=== PATIENT | male | born 1960 | race African-American/Black ===

== ENCOUNTER 2017-07-13 17:39 | Inpatient (IN) | payer MEDICARE, OTHER ==
[~2017-07-13] VITALS: Ht 180.3 cm; Wt 60.8 kg
[~2017-07-13 17:39] MED LIST: COZ25 PO; COZAAR50 MG PO; GABAPENTIN400 MG PO; HUMULIN N100 UNIT/1 SC; LANTUS 3ML100 UNITS/ SC; LANTUS100 UNIT/1 SC; LEVAQUIN500 MG PO; LEVP SQ; LOSARTAN POTASS25 MG PO; LOVASTATIN40 MG PO; LYRICA75 MG PO; NICODERM CQ1 EAC1 TOP; NOVOLOG MI100 UNITS/ SC; PANTOPRAZOLE SO40 MG PO; PAROXETINE HCL20 MG PO; PROCARDIA XL30 MG PO; SANTYL15 GM TP; ULTRAM50 MG PO
[2017-07-13] MEDS ORDERED: ONDANSETRON HCL INJ 2 MG/ML VIAL ONE (18:25)
[2017-07-13] MEDS ORDERED: ASPIRIN 81 MG CHEW TAB PO ONE (18:30)
--- NOTE | 2017-07-13 18:54 | Diagnostic Imaging Report ---
Examination: Single AP view of the chest. COMPARISON: None. INDICATION: Low blood sugar DISCUSSION: Lines/tubes: None. Lungs: The lungs are well inflated and clear. There is no evidence of pneumonia or pulmonary edema. Pleura: There is no pleural effusion or pneumothorax. Heart and mediastinum: The heart and the mediastinum are unremarkable. Bones and soft tissues: No acute bony abnormalities. Scattered soft tissue BBs. IMPRESSION: 1. No acute cardiopulmonary abnormalities. Signed by: Dr. Davis Sanders M.D. on 07/13/2017 6:51 PM
[2017-07-13 19:09] LABS: BASOPHILS # (AUTO) 0.1 (0.0-0.1); BASOPHILS % 0.4 % (0.0-1.0); EOSINOPHILS # (AUTO) 0.1 (0.0-0.4); EOSINOPHILS % 0.6 % (0.0-6.0); HEMOGLOBIN 11.8 g/dL (14.0-18.0); LYMPHOCYTES # (AUTO) 1.4 (1.0-3.2); LYMPHOCYTES % 7.6 % (18.0-39.1); MEAN CORPUSCULAR HEMOGLOBIN 29.2 pg (28-32); MEAN CORPUSCULAR HGB CONC 32.8 g/dL (31-35); MEAN CORPUSCULAR VOLUME 89.1 fL (81-99); MONOCYTES # (AUTO) 1.1 (0.2-0.8); MONOCYTES % 6.1 % (4.4-11.3); NEUTROPHILS # (AUTO) 15.2 (2.1-6.9); NEUTROPHILS % 84.8 % (38.7-80.0); PLATELET COUNT 301 x10e3/uL (140-360); RED BLOOD COUNT 4.04 x10e6/uL (4.3-5.7); RED CELL DISTRIBUTION WIDTH 14.1 % (11.7-14.4)
[2017-07-13] MEDS ORDERED: DEXTROSE 50% SYRINGE 50 ML IV ONE (19:09)
[2017-07-13] MEDS ORDERED: DEXTROSE 50% SYRINGE 50 ML IV STA (19:10)
[2017-07-13] MEDS ORDERED: DEXTROSE 5%/0.45% SOD CHL 1,000 ML IV ONE (19:15)
[2017-07-13 19:22] LABS: INR 0.91; PROTHROMBIN TIME 12.7 seconds (11.9-14.5)
[2017-07-13 19:23] LABS: PARTIAL THROMBOPLASTIN TIME 30.7 seconds (23.8-35.5)
[2017-07-13 19:26] LABS: BILIRUBIN,URINE NEGATIVE (NEGATIVE); CLARITY,URINE CLEAR (CLEAR); COLOR,URINE YELLOW (YELLOW); KETONES,URINE NEGATIVE (NEGATIVE); LEUKOCYTE ESTERASE ,URINE NEGATIVE (NEGATIVE); NITRITE,URINE NEGATIVE (NEGATIVE); PROTEIN,URINE DIPSTICK NEGATIVE (NEGATIVE); URINE UROBILINOGEN 0.2 mg/dL (0.2 - 1)
[2017-07-13 19:30] LABS: ALANINE AMINOTRANSFERASE 12 IU/L (0-55); ALBUMIN 3.5 g/dL (3.5-5.0); ALBUMIN/GLOBULIN RATIO 0.8 (0.8-2.0); ALKALINE PHOSPHATASE 127 IU/L (40-150); ANION GAP 12.6 mmol/L (8-16); BLOOD UREA NITROGEN 14 mg/dL (7-26); BUN/CREATININE RATIO 18 (6-25); CALCIUM 9.4 mg/dL (8.4-10.2); CARBON DIOXIDE 26 mmol/L (22-29); CHLORIDE 105 mmol/L (98-107); CREATINE KINASE 60 IU/L (30-200); EST GLOMERULAR FILTRATION RATE > 60 ML/MIN (60-); GLUCOSE 102 mg/dL (74-118); POTASSIUM 3.6 mmol/L (3.5-5.1); SODIUM 140 mmol/L (136-145)
[2017-07-13 19:37] LABS: TROPONIN I 0.008 ng/mL (0-0.300)
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
[2017-07-14] MEDS ORDERED: ACETAMINOPHEN 1000 MG/100 ML IV STA (00:17)
[2017-07-14] MEDS: SODIUM CHLORIDE 0.9% 1000ML 1,000 ML IV SCH ×2 (00:22→08:19)
[2017-07-14] MEDS ORDERED: ONDANSETRON HCL INJ 2 MG/ML VIAL IV PRN (00:30)
[2017-07-14] MEDS ORDERED: SODIUM CHLORIDE 0.9% 1000ML 1,000 ML IV ONE (00:30)
[2017-07-14] MEDS ORDERED: TRAMADOL HCL 50 MG TAB PO PRN (00:30)
[2017-07-14] MEDS ORDERED: DEXTROSE 50% SYRINGE 50 ML IV PRN (00:30)
[2017-07-14] MEDS ORDERED: GABAPENTIN 300 MG CAP PO PRN (00:30)
[2017-07-14] MEDS: PIPER-TAZ 3.375 GM 50 ML IV SCH ×4 (00:43→21:28)
[2017-07-14] MEDS: VANCOMYCIN 1GM/NS 250 ML 250 ML IV SCH ×2 (01:00→12:49)
[2017-07-14 01:20] VITALS: BP 130/71
[2017-07-14 02:25] VITALS: BP 130/71
[2017-07-14] MEDS: INSULIN REGULAR, HUMAN 100 UNIT/1 ML 3ML VIAL SQ SCH ×2 (07:30→11:30)
[2017-07-14] MEDS: INSULIN ASPART 70/30 100 UNITS/ML VIAL SC SCH ×2 (07:30→11:30)
[2017-07-14] MEDS ORDERED: ACETAMINOPHEN 325 MG TAB PO PRN (07:45)
[2017-07-14] MEDS: LOSARTAN POTASSIUM 25 MG TAB PO SCH (08:40)
[2017-07-14] MEDS: DOCUSATE SODIUM 100 MG CAP PO SCH ×2 (08:40→16:09)
[2017-07-14] MEDS: NICOTINE 7 MG PATCH TOP SCH (08:41)
[2017-07-14] MEDS: SENNOSIDES 8.6 MG TAB PO SCH (08:41)
--- NOTE | 2017-07-14 08:49 | History and Physical ---
PCP: Dr. Turcios. QUALITY REP: Dr. Jan Mclean. CHIEF COMPLAINT: Low blood sugar and left foot ulcer worsening. HISTORY OF PRESENT ILLNESS: A 46-year-old man with a history of a diabetic foot ulcer on the left foot who has had debridement and management by Dr. Jan Mclean here at [facility] and also at [facility]. Recently discharged from [place] for a debridement. Now patient states that blood sugar was quite low, did not give me a number, and that his leg wound has been worsening. Denies any chest pain or shortness of breath. Patient admits to smoking several cigarettes since being discharged. PAST MEDICAL HISTORY: Diabetes mellitus type 2, peripheral vascular disease, peripheral neuropathy, diabetic neuropathy, cataracts, right diabetic foot ulcer status post TMA, left diabetic foot ulcer status post toe amputations, gluteal abscess. PAST SURGICAL HISTORY: Right TMA secondary to diabetic foot ulcer and left foot toe amputations. ALLERGIES: PER ELECTRONIC MEDICAL RECORD. SOCIAL HISTORY: The patient is . Has several children. He has a significant history of smoking cigarettes for more than 30 years and continues to smoke cigarettes now. MEDICATIONS: Per electronic medical record. REVIEW OF SYSTEMS: Denies any dizziness, chest pain. PHYSICAL EXAMINATION VITAL SIGNS: Reviewed. GENERAL: A tired-appearing man resting in bed. HEENT: Anicteric. Pupils respond to light. No oral lesions. He has a right eye which is opaque. CARDIOVASCULAR: Normal S1 and S2. LUNGS: Moderate breath sounds. ABDOMEN: Soft and nontender. EXTREMITIES: Right TMA site well-healed. He has had left foot ulcer/surgical site with dressing in place. SKIN: Dry. PSYCHIATRIC: Flat affect. Alert and oriented x3. LABS: Reviewed. MEDICATIONS: Reviewed. ASSESSMENT AND PLAN: A 56-year-old man 1. Sepsis. Will continue him on Zosyn and vancomycin. Will get Dr. Mclean back on board to assist in management. 2. Diabetes mellitus type 2. Will get a hemoglobin A1c and lipid panel. Consult Dr. Medina to assist in management. 3. Cigarette abuse. Counseled on cessation. We started nicotine patch. 4. Hypertension. Started on medication. 5. Left diabetic ulcer as described above. Continue antibiotics per Dr. Mclean. 6. Diabetic neuropathy. Continue gabapentin. 7. Prophylaxis. Will use Lovenox and Pepcid. 8. Disposition: Follow up labs. Job#: [id number] POPE
[2017-07-14] MEDS ORDERED: INSULIN DETEMIR 100 UNIT/ML PEN SQ SCH ×2 (09:00→21:00)
[2017-07-14 09:44] VITALS: BP 150/74
[2017-07-14 13:35] VITALS: BP 124/68
--- NOTE | 2017-07-14 15:29 | Consultation ---
DATE OF CONSULTATION: July 14, 2017 ENDOCRINE CONSULTATION This is a patient of Dr. Monroe. This is a 56-year-old black gentleman who is known to me from his previous hospital followups. Patient came to the hospital with history of altered mental status and low blood sugar. Patient has multiple other medical problems including cellulitis of both feet and possibly osteomyelitis of the right foot. At home he takes quite a significant amount of insulin, about 26 of Humalog with each meal, and also takes Lantus about 40 at bedtime. Patient also has severe diabetic neuropathy for which he is on Neurontin 300 mg 3 times a day. He has hypertension. He is on losartan 50 mg once daily and tramadol for pain. Patient is also a chronic smoker. PHYSICAL EXAMINATION GENERAL: On physical examination today, the patient is alert, awake, a little bit apprehensive. HEENT: He is legally blind on the right eye. CHEST: Bilateral vesicular breathing. He has mild bronchospasm. CARDIOVASCULAR: Both 1st and 2nd heart sounds. There is no 3rd or 4th heart sound. Ejection sound grade 2/6. EXTREMITIES: Patient has bilateral foot ulcers. LAB EVALUATION: Shows his blood sugar at the time of admission was in the ranges of 120s. His sodium was 140. Hemoglobin is 11.8 and his white count was elevated at 17.9. CLINICAL IMPRESSION 1. Diabetes mellitus type 2, uncontrolled, with complications. 2. Hypoglycemia. 3. Sepsis. 4. Cellulitis of the feet. The plan at this time is to adjust the insulin dose, monitor his blood sugars closely, and will a hemoglobin A1c and thyroid function test. Thanks for referring this patient. I will be following this patient with you. Job#: [id number] EV
[2017-07-14 15:39] LABS: FREE T4 (FREE THYROXINE) 1.05 ng/dL (0.8-1.8); THYROID STIMULATING HORMONE 0.296 uIU/mL (0.350-4.940)
[2017-07-14 16:09] VITALS: BP 126/57
[2017-07-14] MEDS: FAMOTIDINE 20 MG TAB PO SCH (16:09)
[2017-07-14] MEDS: ENOXAPARIN SOD INJ 40 MG/0.4 ML SYR SC SCH (16:09)
[2017-07-14] MEDS: INSULIN LISPRO 100 UNIT/1 ML 3ML VIAL SQ SCH ×3 (16:30→21:00)
[2017-07-14 20:00] VITALS: BP_SYST 116; BP_SYST 138; BP_DIAS 70; BP_DIAS 81
[2017-07-15] VITALS: BP 118/72
[2017-07-15] MEDS: SODIUM CHLORIDE 0.9% 1000ML 1,000 ML IV SCH ×4 (00:13→17:19)
[2017-07-15] MEDS: VANCOMYCIN 1GM/NS 250 ML 250 ML IV SCH ×2 (00:32→13:08)
[2017-07-15 04:00] VITALS: BP 132/81
[2017-07-15] MEDS: PIPER-TAZ 3.375 GM 50 ML IV SCH ×3 (05:28→22:00)
[2017-07-15 07:23] LABS: BASOPHILS # (AUTO) 0.1 (0.0-0.1); BASOPHILS % 0.6 % (0.0-1.0); EOSINOPHILS # (AUTO) 0.1 (0.0-0.4); EOSINOPHILS % 1.4 % (0.0-6.0); HEMATOCRIT 31.1 % (38.2-49.6); HEMOGLOBIN 10.4 g/dL (14.0-18.0); LYMPHOCYTES # (AUTO) 0.9 (1.0-3.2); LYMPHOCYTES % 9.2 % (18.0-39.1); MEAN CORPUSCULAR HEMOGLOBIN 29.2 pg (28-32); MEAN CORPUSCULAR HGB CONC 33.4 g/dL (31-35); MEAN CORPUSCULAR VOLUME 87.4 fL (81-99); MONOCYTES # (AUTO) 0.7 (0.2-0.8); MONOCYTES % 6.7 % (4.4-11.3); NEUTROPHILS # (AUTO) 8.1 (2.1-6.9); NEUTROPHILS % 81.9 % (38.7-80.0); PLATELET COUNT 296 x10e3/uL (140-360); RED BLOOD COUNT 3.56 x10e6/uL (4.3-5.7); RED CELL DISTRIBUTION WIDTH 13.6 % (11.7-14.4)
[2017-07-15] MEDS: INSULIN LISPRO 100 UNIT/1 ML 3ML VIAL SQ SCH ×7 (07:30→21:41)
[2017-07-15 07:31] VITALS: BP 138/75
[2017-07-15 07:48] LABS: ALANINE AMINOTRANSFERASE 12 IU/L (0-55); ALBUMIN 2.8 g/dL (3.5-5.0); ALBUMIN/GLOBULIN RATIO 0.7 (0.8-2.0); ALKALINE PHOSPHATASE 99 IU/L (40-150); ANION GAP 10.3 mmol/L (8-16); BLOOD UREA NITROGEN 8 mg/dL (7-26); BUN/CREATININE RATIO 11 (6-25); CALCIUM 8.9 mg/dL (8.4-10.2); CARBON DIOXIDE 24 mmol/L (22-29); CHLORIDE 105 mmol/L (98-107); CHOL/HDL RATIO 3.2 (3.9-4.7); CHOLESTEROL 120 MD/DL (0-199); CREATININE, SERUM 0.75 mg/dL (0.72-1.25); EST GLOMERULAR FILTRATION RATE > 60 ML/MIN (60-); GLUCOSE 63 mg/dL (74-118); HDL CHOLESTEROL 37 MG/DL (40-60); LDL CHOLESTEROL 71 MG/DL (60-130); POTASSIUM 3.3 mmol/L (3.5-5.1); SODIUM 136 mmol/L (136-145); TRIGLYCERIDES 60 MG/DL (0-149)
[2017-07-15] MEDS: FAMOTIDINE 20 MG TAB PO SCH ×2 (08:47→17:19)
[2017-07-15] MEDS: SENNOSIDES 8.6 MG TAB PO SCH (08:48)
[2017-07-15] MEDS: LOSARTAN POTASSIUM 25 MG TAB PO SCH (08:48)
[2017-07-15] MEDS: DOCUSATE SODIUM 100 MG CAP PO SCH ×2 (08:48→17:19)
--- NOTE | 2017-07-15 09:22 | Consultation ---
DATE OF CONSULTATION: July 15, 2017 REASON FOR CONSULTATION: Wound to the left foot. HISTORY OF PRESENT ILLNESS: This is a pleasant 56-year-old male who is well known to me, who had surgery several weeks ago, which included amputation of the left great toe, partial resection of 1st met with a flap closure. Patient has been walking without his [employer] walking boot against medical advice. Was admitted secondary to hypoglycemia and is feeling better. Is denying any history of fever, chills, nausea, or vomiting. PAST MEDICAL HISTORY: Remarkable for diabetes and peripheral arterial disease. PODIATRIC PHYSICAL EXAMINATION VITALS: Afebrile, pulse rate 90, respirations 18, blood pressure 138/75, O2 saturation 98%. VASCULAR: Reveals the following: Pedal pulses are diminished to both lower extremities. Skin temperature warm to touch. NEUROLOGIC: Reveals a complete loss of protective sensation when utilizing [place] 5 wire. Muscle mass is symmetric. Overall strength is 3-4/5 to all muscle groups. Has mild surgical dehiscence to the flap site. No foul smell. Minimal to no cellulitis. Labs noted. He has a white blood cell count dropping from 17.9 to 9.9. Hemoglobin 10.4 with a platelet count of 296,000. ASSESSMENT: Mild surgical dehiscence secondary to the patient being very noncompliant. PLAN: Will start light film of Bactroban ointment followed by dilute wet-to-dry Betadine. Patient instructed upon discharge need to get back into his [employer] walking boot. Will follow up in the office. Job#: [id number] ELDA
[2017-07-15] MEDS: NICOTINE 7 MG PATCH TOP SCH (09:59)
--- NOTE | 2017-07-15 10:37 | Progress Note ---
DATE: July 15, 2017 TIME: 6 a.m. OVERNIGHT: No events, no pain. REVIEW OF SYSTEMS: Denies any dizziness, chest pain. PHYSICAL EXAM VITAL SIGNS: Reviewed. T-max is 101.2. GENERAL: A tired-appearing man resting in bed. HEENT: Anicteric. He has a right eye, which is opaque. CARDIOVASCULAR: Normal S1 and S2. No murmurs. ABDOMEN: Soft, nontender. EXTREMITIES: Right TMA well healed. Left foot great toe absent. Surgical site clean and dry at this time. No discharge or pus. No tenderness. SKIN: Dry. PSYCHIATRIC: Normal affect. NEUROGICAL: Alert and oriented times 3. LABS: Reviewed. MEDICATIONS: Reviewed. ASSESSMENT AND PLAN: A 56-year-old man with 1. Sepsis. Continue Zosyn and vancomycin. He has fever last night again. Follow up podiatry. 2. Diabetic foot ulcer, status post right great toe amputation. Surgical site appears clean at this time. Follow up podiatry recommendations. 3. Diabetes mellitus, type 2. 4. Cigarette abuse. Counseled this patient. Continue nicotine patch. 5. Hypertension. Continue medication regimen. 6. Diabetic neuropathy. Continue gabapentin. 7. Prophylaxis. Will use Lovenox and Pepcid. 8. Disposition. Continue current care. Follow up cultures. Job#: [id number]
[2017-07-15 11:10] VITALS: BP 162/88
[2017-07-15] MEDS ORDERED: [UNRECOGNIZED DRUG - OTHER] PO PRN (11:15)
[2017-07-15 15:55] VITALS: BP 129/89
[2017-07-15] MEDS: ENOXAPARIN SOD INJ 40 MG/0.4 ML SYR SC SCH (17:19)
[2017-07-15] MEDS ORDERED: POTASSIUM CHLORIDE 20 MEQ TAB CR PO ONE (18:50)
[2017-07-15 20:00] VITALS: BP 160/90
[2017-07-15] MEDS ORDERED: INSULIN DETEMIR 100 UNIT/ML PEN SQ SCH (21:00)
[2017-07-16] VITALS: BP 145/76
[2017-07-16] MEDS: VANCOMYCIN 1GM/NS 250 ML 250 ML IV SCH (01:00)
[2017-07-16 04:38] VITALS: BP 151/84
[2017-07-16] MEDS ORDERED: COLACE100 M1 PO (06:24)
[2017-07-16] MEDS ORDERED: SENOKOT8.6 MG PO (06:24)
[2017-07-16] MEDS ORDERED: FAMOTIDINE20 MG PO (06:24)
[2017-07-16] MEDS ORDERED: NICODERM CQ1 EACH TOP (06:24)
[2017-07-16] MEDS ORDERED: Insulin Detemir SQ (06:24)
[2017-07-16] MEDS ORDERED: CIPRO500 MG PO (06:24)
[2017-07-16] MEDS ORDERED: MINOCYCLINE HCL50 MG PO (06:24)
[2017-07-16] MEDS ORDERED: Insulin Lispro SQ (06:24)
[2017-07-16] MEDS: PIPER-TAZ 3.375 GM 50 ML IV SCH (06:35)
[2017-07-16] MEDS: SODIUM CHLORIDE 0.9% 1000ML 1,000 ML IV SCH (06:35)
[2017-07-16] MEDS: INSULIN LISPRO 100 UNIT/1 ML 3ML VIAL SQ SCH ×2 (07:30)
[2017-07-16] MEDS: FAMOTIDINE 20 MG TAB PO SCH (07:30)
--- NOTE | 2017-07-16 07:43 | Discharge Summary ---
PRINCIPAL DIAGNOSES: 1. Sepsis secondary to diabetic foot ulcer. 2. Diabetic foot ulcer on the right foot. 3. Diabetes mellitus type 2. 4. Cigarette abuse. 5. Hypertension. 6. Diabetic neuropathy. SECONDARY DIAGNOSIS: Diabetes mellitus type 2. CHIEF COMPLAINT: Low blood sugar and worsening left foot ulcer. HISTORY OF PRESENT ILLNESS: This is a 56-year-old man with low blood sugar and comes in for left foot ulcer worsening. Please refer to the H and P for further details. HOSPITAL COURSE: Patient found to be septic, treated with Zosyn and vancomycin, evaluated by podiatry. Wound looked good and clean. He received antibiotics. Fevers resolved. Leukocytosis resolved. He will be discharged home on minocycline and ciprofloxacin. Patient also had diabetes mellitus type 2, managed with medication and diet. He continues to smoke cigarette, counseled on cessation again, given nicotine patch. Hypertension, treated with medication regimen. Diabetic neuropathy with gabapentin. Patient is doing better, currently appropriate for discharge. Will follow up. He was also evaluated by Dr. Medina for his diabetes. DISCHARGE MEDICATIONS: Per electronic medical record and includes minocycline 100 mg p.o. q.12h. for 14 days and ciprofloxacin 500 mg p.o. q.12h. for 14 days. FOLLOWUP: 1. Follow up with primary care doctor in 1 week. 2. Follow up with Dr. Jan Mclean in 10 days. 3. Follow up with Dr. Medina of endocrinology in 10 days. PHILIP MOULTON MD Job#: [id number]
[2017-07-16 08:26] VITALS: BP 136/79
[2017-07-28] MEDS ORDERED: HUMALOG100 UNIT/1 SQ (14:42)
== END 2017-07-16 10:28 | disposition home or self-care (01) | DRG 872 ==
LOC: ER 17:39 → ERHOLD 07-14 00:24 → MED/SURG3 07-14 01:09
PROVIDERS: ADMIT Internal Medicine; ATTEND Internal Medicine
DX: A41.9 Sepsis, unspecified organism (principal); E11.40 Type 2 diabetes mellitus with diabetic neuropathy, unspecified; E11.621 Type 2 diabetes mellitus with foot ulcer; L97.519 Non-pressure chronic ulcer of other part of right foot with unspecified severity; F17.210 Nicotine dependence, cigarettes, uncomplicated; I10 Essential (primary) hypertension; E11.649 Type 2 diabetes mellitus with hypoglycemia without coma; Z91.19 Patient's noncompliance with other medical treatment and regimen; D64.9 Anemia, unspecified; Z89.431 Acquired absence of right foot; Z79.4 Long term (current) use of insulin; T87.81 Dehiscence of amputation stump; J44.9 Chronic obstructive pulmonary disease, unspecified; L97.529 Non-pressure chronic ulcer of other part of left foot with unspecified severity
CPT/HCPCS: 36415; 70450; 71010; 80053; 80061; 81001; 82550; 82553; 82948; 83036; 83880; 84439; 84443; 84484; 85025; 85610; 85730; 87086; 93005; 97139; 99285; J1650; J1815; J2405; J2543; J3370; J7030; J7799

== ENCOUNTER 2017-09-10 15:10 | Inpatient (IN) | payer MEDICARE, OTHER ==
[~2017-09-10] VITALS: Ht 177.8 cm; Wt 58.5 kg
[~2017-09-10 15:10] MED LIST changes: +CIPRO500 MG PO; +COLACE100 M1 PO; +FAMOTIDINE20 MG PO; +HUMALOG100 UNIT/1 SQ; +Insulin Detemir SQ; +Insulin Lispro SQ; +MINOCYCLINE HCL50 MG PO; +NICODERM CQ1 EACH TOP; +SENOKOT8.6 MG PO
[2017-09-10] MEDS ORDERED: VANCOMYCIN 1GM/NS 250 ML 250 ML IV STA (16:29)
[2017-09-10 17:50] LABS: BASOPHILS # (AUTO) 0.1 (0.0-0.1); BASOPHILS % 0.5 % (0.0-1.0); EOSINOPHILS # (AUTO) 0.1 (0.0-0.4); EOSINOPHILS % 0.5 % (0.0-6.0); HEMATOCRIT 38.3 % (38.2-49.6); HEMOGLOBIN 12.8 g/dL (14.0-18.0); LYMPHOCYTES # (AUTO) 1.8 (1.0-3.2); LYMPHOCYTES % 14.6 % (18.0-39.1); MEAN CORPUSCULAR HEMOGLOBIN 28.8 pg (28-32); MEAN CORPUSCULAR HGB CONC 33.4 g/dL (31-35); MEAN CORPUSCULAR VOLUME 86.1 fL (81-99); MONOCYTES % 7.6 % (4.4-11.3); NEUTROPHILS # (AUTO) 9.6 (2.1-6.9); NEUTROPHILS % 76.5 % (38.7-80.0); PLATELET COUNT 454 x10e3/uL (140-360); RED BLOOD COUNT 4.45 x10e6/uL (4.3-5.7); RED CELL DISTRIBUTION WIDTH 13.2 % (11.7-14.4)
[2017-09-10] MEDS: CEFEPIME HCL 2 GM VIAL IV SCH (17:55)
[2017-09-10 18:11] LABS: ALANINE AMINOTRANSFERASE 9 IU/L (0-55); ALBUMIN 3.4 g/dL (3.5-5.0); ALBUMIN/GLOBULIN RATIO 0.6 (0.8-2.0); ALKALINE PHOSPHATASE 140 IU/L (40-150); ANION GAP 13.4 mmol/L (8-16); BLOOD UREA NITROGEN 17 mg/dL (7-26); BUN/CREATININE RATIO 17 (6-25); CARBON DIOXIDE 30 mmol/L (22-29); CHLORIDE 92 mmol/L (98-107); CREATININE, SERUM 0.99 mg/dL (0.72-1.25); EST GLOMERULAR FILTRATION RATE > 60 ML/MIN (60-); POTASSIUM 4.4 mmol/L (3.5-5.1); SODIUM 131 mmol/L (136-145)
[2017-09-10 18:13] LABS: GLUCOSE 441 mg/dL (74-118)
[2017-09-10] MEDS ORDERED: SODIUM CHLORIDE 0.9% 1000ML 1,000 ML IV STA (18:32)
[2017-09-10] MEDS ORDERED: INSULIN REGULAR, HUMAN 100 UNIT/1 ML 3ML VIAL IV ONE (18:45)
--- NOTE | 2017-09-10 19:02 | Diagnostic Imaging Report ---
PROCEDURE:X-RAY LEFT FOOT, COMPLETE COMPARISON:None. INDICATIONS:LEFT FOOT PAIN, INFECTION FINDINGS: Decreased mineralization. There is likely prior amputation of the first toe at the distal metatarsal level, however, he distal metaphyseal cortical edges show erosion/destruction. There is surrounding soft tissue swelling and soft tissue gas. Other cortical surfaces are intact. Moderate degenerative changes in the second toe proximal interphalangeal joint. Vascular calcifications. CONCLUSION: 1. Findings consistent with osteomyelitis involving the first toe metatarsal bone. 2. Surrounding soft tissue gas suggesting gangrene/likely anaerobic infection Darrick Buchanan M.D. Dictated by: Darrick Buchanan M.D. on 09/10/2017 at 19:11 Electronically approved by: Darrick Buchanan M.D. on 09/10/2017 at 19:11
[2017-09-10] MEDS ORDERED: MORPHINE SULFATE 5 MG/ML VIAL IV ONE (19:45)
[2017-09-10] MEDS ORDERED: ONDANSETRON HCL INJ 2 MG/ML VIAL IV PRN (20:30)
[2017-09-10] MEDS ORDERED: ACETAMINOPHEN 325 MG TAB PO PRN (20:30)
[2017-09-10] MEDS ORDERED: DEXTROSE 50% SYRINGE 50 ML IV PRN (20:30)
[2017-09-10] MEDS ORDERED: GABAPENTIN 300 MG CAP PO PRN (21:00)
[2017-09-10] MEDS ORDERED: CEFEPIME HCL 2 GM VIAL IV SCH (22:00)
[2017-09-10] MEDS: INSULIN REGULAR, HUMAN 100 UNIT/1 ML 3ML VIAL SQ SCH (22:31)
[2017-09-10 22:35] VITALS: BP 138/70
[2017-09-10] MEDS: SODIUM CHLORIDE 0.9% 1000ML 1,000 ML IV SCH (23:30)
[2017-09-10 23:45] VITALS: BP 137/70
[2017-09-11] MEDS: CEFEPIME HCL 2 GM VIAL IV SCH ×3 (01:45→19:00)
[2017-09-11] MEDS: HYDROMORPHONE 2MG/ML INJ IV PRN ×3 (03:53→22:45)
[2017-09-11] MEDS: SODIUM CHLORIDE 0.9% 1000ML 1,000 ML IV SCH ×3 (04:16→21:28)
[2017-09-11] MEDS: VANCOMYCIN 1GM/NS 250 ML 250 ML IV SCH ×2 (05:58→16:39)
[2017-09-11 06:20] LABS: BASOPHILS # (AUTO) 0.1 (0.0-0.1); BASOPHILS % 0.6 % (0.0-1.0); EOSINOPHILS # (AUTO) 0.1 (0.0-0.4); EOSINOPHILS % 1.3 % (0.0-6.0); HEMATOCRIT 32.1 % (38.2-49.6); HEMOGLOBIN 10.7 g/dL (14.0-18.0); LYMPHOCYTES # (AUTO) 1.2 (1.0-3.2); LYMPHOCYTES % 14.1 % (18.0-39.1); MEAN CORPUSCULAR HEMOGLOBIN 28.8 pg (28-32); MEAN CORPUSCULAR HGB CONC 33.3 g/dL (31-35); MEAN CORPUSCULAR VOLUME 86.3 fL (81-99); MONOCYTES # (AUTO) 0.9 (0.2-0.8); MONOCYTES % 10.1 % (4.4-11.3); NEUTROPHILS # (AUTO) 6.4 (2.1-6.9); NEUTROPHILS % 73.7 % (38.7-80.0); PLATELET COUNT 370 x10e3/uL (140-360); RED BLOOD COUNT 3.72 x10e6/uL (4.3-5.7)
[2017-09-11 06:45] LABS: ALANINE AMINOTRANSFERASE 9 IU/L (0-55); ALBUMIN 2.6 g/dL (3.5-5.0); ALBUMIN/GLOBULIN RATIO 0.7 (0.8-2.0); ALKALINE PHOSPHATASE 111 IU/L (40-150); ANION GAP 13.1 mmol/L (8-16); BLOOD UREA NITROGEN 13 mg/dL (7-26); BUN/CREATININE RATIO 17 (6-25); CARBON DIOXIDE 25 mmol/L (22-29); CHLORIDE 100 mmol/L (98-107); CREATININE, SERUM 0.76 mg/dL (0.72-1.25); EST GLOMERULAR FILTRATION RATE > 60 ML/MIN (60-); GLUCOSE 366 mg/dL (74-118); POTASSIUM 4.1 mmol/L (3.5-5.1); SODIUM 134 mmol/L (136-145)
[2017-09-11 07:38] LABS: CHOL/HDL RATIO 3.3 (3.9-4.7)
[2017-09-11 07:59] LABS: THYROID STIMULATING HORMONE 2.421 uIU/mL (0.350-4.940)
[2017-09-11 08:00] VITALS: BP 144/73
[2017-09-11] MEDS: LOSARTAN POTASSIUM 25 MG TAB PO SCH (09:34)
[2017-09-11] MEDS: NICOTINE 14 MG/EA PATCH TOP SCH (09:34)
[2017-09-11] MEDS: INSULIN REGULAR, HUMAN 100 UNIT/1 ML 3ML VIAL SQ SCH ×2 (09:34→12:00)
[2017-09-11] MEDS: DOCUSATE SODIUM 100 MG CAP PO SCH ×2 (09:34→16:48)
[2017-09-11] MEDS: FAMOTIDINE 20 MG TAB PO SCH ×2 (09:35→16:48)
--- NOTE | 2017-09-11 11:42 | History and Physical ---
PRIMARY CARE PHYSICIAN: Dr. Turcios CHIEF COMPLAINT: Left foot ulcer. HISTORY OF PRESENT ILLNESS: This is a 56-year-old man with a history of diabetic foot ulcer, who recently underwent amputation of his great toe on his left foot. Now, developing worsening symptoms with odor and discharge from the previous surgical site. He admits to missing several appointments with Dr. Mclean. He has not been on antibiotics for some time. He denies fever, chills or sweats. Denies any chest pain or shortness of breath. PAST MEDICAL HISTORY: Diabetes mellitus, type 2, diabetic foot ulcer, status post right TMA, diabetic foot ulcer, status post left great toe amputation, gluteal abscess, peripheral vascular disease, peripheral neuropathy, diabetic neuropathy, hypoglycemic episodes. PAST SURGICAL HISTORY: Right TMA and left great toe amputation. ALLERGIES: PER ELECTRONIC MEDICAL RECORD. FAMILY HISTORY/SOCIAL HISTORY: Patient is . He has several children. He had a significant history of smoking more than 30 years, and continues to smoke intermittently. MEDICATIONS: Per electronic medical record. REVIEW OF SYSTEMS: Denies any dizziness or chest pain. PHYSICAL EXAMINATION VITAL SIGNS: Reviewed. GENERAL: A tired-appearing man resting in bed. HEENT: Anicteric. Pupils respond to light. No oral lesions. CARDIOVASCULAR: Normal S1 and S2. LUNGS: Moderate breath sounds. ABDOMEN: Soft, nontender and nondistended. EXTREMITIES: He has a right TMA well-healed. He has left foot with great toe absent. At the great toe previous surgical site, there is a defect in the tissue with odor. Some discharge. The dressing is wet. There is no real erythema. There is no tenderness. There is some hyperpigmentation of the nearby tissue. SKIN: Dry. PSYCHIATRIC: Flat affect. NEUROLOGICAL: Alert and oriented times 3. LABS: Reviewed. MEDICATIONS: Reviewed. ASSESSMENT AND PLAN: A 56-year-old man with: 1. Left diabetic foot ulcer at the previous great toe site: There is odor and discharge. Likely has a bone infection. Will obtain x-rays and MRI, and consult Dr. Mclean. Broad-spectrum antibiotics, wound culture and blood cultures. 2. Diabetes mellitus, type 2: Obtain hemoglobin A1c and lipid panel. He has had labile blood glucose and periods of hypoglycemia. Will consult Dr. Medina for assist in management. 3. Tobacco abuse: Continue counseling. Will start nicotine patch. 4. Findings positive for osteomyelitis on x-ray of the foot at the 1st metatarsal bone: He also has surrounding tissue with gas suggestive of gangrene. Continue antibiotics. Surgical management will be likely necessary. 5. Leukocytosis secondary to infection: His sed rate is 78. 6. Dehydration: Will rehydrate the patient with intravenous fluids. 7. Hypertension: Continue losartan. 8. Constipation: Bowel regimen. 9. Diabetic neuropathy: Continue gabapentin. 10. Prophylaxis: Will continue Pepcid. Will utilize Lovenox. 11. Disposition: Intravenous antibiotics consisting of intravenous cefepime and IV vancomycin. Endocrinology consultation. Job#: [id number] ELDA
[2017-09-11 12:00] VITALS: BP 108/59
[2017-09-11] MEDS ORDERED: FIXODENT DT PRN (14:30)
[2017-09-11] MEDS ORDERED: [UNRECOGNIZED DRUG - OTHER] PO PRN (14:45)
--- NOTE | 2017-09-11 14:58 | Consultation ---
DATE OF CONSULTATION: September 11, 2017 ENDOCRINE CONSULTATION This is a patient of Dr. Monroe. Thank you very much for referring this patient. HISTORY OF PRESENT ILLNESS: This is a 57-year-old black gentleman who is very well known to me from his previous hospital admissions and the followup. Patient came to the hospital with history of left foot ulcer. Patient underwent amputation on the greater toe on the left side recently by Dr. Mclean. Patient is a known case of diabetes mellitus type 2, uncontrolled with complications. He is status post right-sided TMA with peripheral vascular disease. He takes about 18 units of Levemir in the morning and 5 to 7 of Humalog with each meal. Patient is also legally blind on 1 eye, but he smokes. PHYSICAL EXAMINATION: GENERAL: Today the patient is alert, awake, a little bit apprehensive. VITAL SIGNS: His heart rate is around 78. Blood pressure 130/80 mmHg. HEENT: Examination essentially unremarkable. Thyroid is palpable. Clinically he is near euthyroid. CHEST: Bilateral vesicular breathing. Has mild bronchospasm. CARDIAC: Both 1st and 2nd heart sounds. There is no 3rd or 4th heart sound. Ejection sound grade 2/6. EXTREMITIES: The patient has left diabetic foot ulcer, status post toe amputation, CLINICAL IMPRESSION: Siabetes mellitus type 2, uncontrolled with complications, left foot ulcer, chronic smoker, hypertension. The plan at this time is to put him back on the Levemir insulin in the morning and Humalog with each meal. Will also do a hemoglobin A1c and thyroid function test. Thanks for referring this patient. I will be following this patient with you. Job#: [id number] EV RITESH
[2017-09-11] MEDS ORDERED: COLLAGENASE OINTMENT 30 GM TUBE TP SCH (15:00)
[2017-09-11 16:00] VITALS: BP 137/64
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
[2017-09-11] MEDS ORDERED: INSULIN LISPRO 100 UNIT/1 ML 3ML VIAL SQ SCH (16:30)
[2017-09-11] MEDS: INSULIN LISPRO 100 UNIT/1 ML 3ML VIAL SQ SCH ×3 (16:39→21:32)
[2017-09-11 18:45] LABS: INR 0.86; PROTHROMBIN TIME 12.2 seconds (11.9-14.5)
[2017-09-11] MEDS ORDERED: INSULIN DETEMIR 100 UNIT/ML PEN SQ SCH (21:00)
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
[2017-09-12 01:47] VITALS: BP 136/97
[2017-09-12] MEDS: CEFEPIME HCL 2 GM VIAL IV SCH ×3 (03:00→20:35)
[2017-09-12] MEDS: SODIUM CHLORIDE 0.9% 1000ML 1,000 ML IV SCH ×3 (03:00→15:58)
[2017-09-12] MEDS ORDERED: BETAMETHASONE DISODIUM PHOS 6 MG/ML VIAL ONE (06:38)
[2017-09-12] MEDS ORDERED: BUPIVACAINE HCL 0.5% INJ 30 ML VIAL INJ ONE (06:39)
[2017-09-12] MEDS: VANCOMYCIN 1GM/NS 250 ML 250 ML IV SCH ×2 (06:44→18:47)
[2017-09-12] MEDS ORDERED: INSULIN REGULAR, HUMAN 100 UNIT/1 ML 3ML VIAL ONE (07:11)
--- NOTE | 2017-09-12 07:21 | Progress Note ---
DATE: September 12, 2017 TIME: 6:15 a.m. OVERNIGHT: No events. REVIEW OF SYSTEMS: Denies any dizziness or chest pain. PHYSICAL EXAMINATION VITAL SIGNS: Reviewed. GENERAL: A tired-appearing man resting in bed. HEENT: Anicteric. CARDIOVASCULAR: Normal S1 and S2. LUNGS: Moderate breath sounds. ABDOMEN: Soft, nontender and nondistended. EXTREMITIES: He has a right TMA well-healed. His foot with absent great toe at that site. He has a wound and odor with drainage and nontender. SKIN: Dry. PSYCHIATRIC: Flat affect. NEUROLOGICAL: Alert and oriented times 3. LABS: Reviewed. MEDICATIONS: Reviewed. ASSESSMENT: A 56-year-old man with: 1. Left diabetic foot ulcer/gangrene with osteomyelitis of the left foot. 2. Diabetes mellitus, type 2. 3. Tobacco abuse. 4. Dehydration. 5. Hypertension. 6. Constipation. 7. Diabetic neuropathy. PLAN 1. Continue IV antibiotics. Follow up cultures. 2. Plan for surgical management. 3. Leukocytosis is improving. 4. Diabetes management per endocrinology. 5. Hemoglobin A1c 12.1 and poorly controlled. LDL 75 and triglycerides 71. 6. Prophylaxis: Continue with IV cefepime and IV vancomycin. 7. Continue prophylaxis. Job#: [id number] [place]
[2017-09-12] MEDS: FAMOTIDINE 20 MG TAB PO SCH ×2 (07:30→16:55)
[2017-09-12] MEDS: INSULIN LISPRO 100 UNIT/1 ML 3ML VIAL SQ SCH ×7 (07:30→20:36)
[2017-09-12] MEDS ORDERED: BACITRACIN 50,000 UNIT VIAL ONE (07:37)
[2017-09-12] MEDS: LOSARTAN POTASSIUM 25 MG TAB PO SCH (08:59)
[2017-09-12] MEDS: DOCUSATE SODIUM 100 MG CAP PO SCH ×2 (09:00→16:48)
[2017-09-12] MEDS ORDERED: INSULIN DETEMIR 100 UNIT/ML PEN SQ SCH ×2 (09:00)
--- NOTE | 2017-09-12 09:08 | Operative Report ---
DATE OF PROCEDURE: September 12, 2017 PREOPERATIVE DIAGNOSES 1. Abscess, left foot. 2. Osteomyelitis, left foot. 3. Grade 4 ulcer, left foot. 4. Equinus deformity, left foot. POSTOPERATIVE DIAGNOSES 1. Abscess, left foot. 2. Osteomyelitis, left foot. 3. Grade 4 ulcer, left foot. 4. Equinus deformity, left foot. OPERATIVE PROCEDURES 1. Incision and drainage of abscess, left foot. 2. Transmetatarsal amputation, left foot. 3. Achilles tendon lengthening, right foot. 4. Rotational flap closure, right foot. 5. Intraoperative use of fluoroscopy. 6. Trigger point shot of cortisone. 7. Application of posterior splint. ANESTHESIA: General. HEMOSTASIS: Pneumatic thigh tourniquet at 350 mmHg. PROCEDURE IN DETAIL: Patient was taken into the operating room and placed on the operating room table in the supine position. Following induction of general anesthesia by the anesthesiologist, Webril wraps were placed on the patient's left thigh followed by the application of left thigh tourniquet. The left lower extremity was then prepped and draped in the usual aseptic manner. The following procedure was then performed: PROCEDURE #1: Incision and drainage of abscess, left foot. Attention was directed to the dorsomedial aspect of the 1st metatarsal where a curvilinear incision was performed. Severe foul smell and purulent draining was encountered and cultured for aerobic and anaerobic growth. At this point, the abscess was I and D'd down to viable bleeding tissue. Necrotic tissue was removed. Secondary to the extensive necrosis, procedure #2 was performed. PROCEDURE #2: Transmetatarsal amputation, left foot. Attention was redirected back to the dorsal aspect of the left lower extremity where a racquet-shaped incision was performed overlying metatarsals 1-5 dorsally and plantarly. The incisions were then deepened via blunt dissection down to the metatarsal shaft utilizing a periosteal elevator. Soft tissue attachments to the shaft of metatarsals were released and preserving the metatarsal parabola. Utilizing an oscillating saw, the metatarsal parabola was kept, and metatarsals 1-2 were osteotomized. The forefoot was then disarticulated and sent for pathological analysis. All areas were then copiously flushed with sterile antibiotic solution and suctioned. Contracture of the foot was noted. PROCEDURE #3: Achilles tendon lengthening was performed. Attention was then directed back to the posterior aspect of left foot where 3 stab incisions were performed 2 cm proximal to the insertion site and 2 cm apart midline through the Achilles tendon. The incision was performed midline through the tendon and exited medially. The middle stab incision was entered through the midline of the tendon and exited laterally. At this point, the foot was dorsiflexed past 90 degrees. The Achilles tendon was then felt lengthened. PROCEDURE #4: Intraoperative use of fluoroscopy was then used to make sure proper parabola was maintained. PROCEDURE #5: Rotational flap closure was then performed. At this point, the thigh tourniquet was released. All ligators or pumpers were ligated or bovied as necessary. The incision was then carried more proximal medially and dorsally proximally laterally to create a flap to create minimal skin tension upon closure. The flap was then rotated dorsally and medially. Utilizing 2-0 Vicryl, 3-0 Vicryl and 3-0 nylon, the flap was reapproximated with minimal skin tension to allow for better chance of healing. PROCEDURE #6: Trigger point shot of cortisone was then given to the posterior aspect of the left foot, and approximately 15 mL of 0.5% plain Marcaine were used to achieve local anesthesia to the above-mentioned surgical areas. A sterile dressing was applied. PROCEDURE #7: A properly placed posterior splint was then applied keeping the foot at 90 degrees with respect to the leg to try to prevent any type of postop complications. The patient was then transferred from the OR to the recovery room with vital signs stable and neurovascular status intact. No intraoperative complications were encountered. Blood loss from the surgery was less than 75 mL. Patient will remain in the hospital getting IV antibiotics. Patient understands no warranties or guarantees were given. If it does not heal, he will need a more proximal amputation, which may even involve a below the knee amputation. Job#: [id number] RI
[2017-09-12 09:24] VITALS: BP 124/75
[2017-09-12] MEDS: NICOTINE 14 MG/EA PATCH TOP SCH (09:24)
[2017-09-12] MEDS: HYDROMORPHONE 2MG/ML INJ IV PRN ×3 (11:07→22:26)
[2017-09-12] MEDS ORDERED: ONDANSETRON HCL INJ 2 MG/ML VIAL ONE (11:43)
[2017-09-12] MEDS ORDERED: SEVOFLURANE INHAL SOLN 250 ML PEN BTL ONE (11:43)
[2017-09-12] MEDS ORDERED: PROPOFOL IV EMULSION 10 MG/ML 20 ML VIAL ONE (11:43)
[2017-09-12] MEDS ORDERED: KETOROLAC TROMETHAMINE 30 MG/ML VIAL ONE (11:43)
[2017-09-12] MEDS ORDERED: LIDOCAINE HCL 2% LOCAL INJ 5 ML SDV VIAL INJ ONE (11:43)
[2017-09-12] MEDS ORDERED: DEXAMETHASONE SOD PHOS INJ 4 MG/ML VIAL ONE (11:43)
[2017-09-12 12:03] VITALS: BP 123/59
[2017-09-12 12:14] VITALS: BP 123/59
[2017-09-12 15:58] VITALS: BP 143/75
[2017-09-12] MEDS ORDERED: FENTANYL CITRATE/PF 100MCG/2 ML INJ ONE (18:41)
[2017-09-12] MEDS ORDERED: MIDAZOLAM HCL 2 MG/2 ML VIAL ONE (18:41)
[2017-09-12 20:00] VITALS: BP 162/86
[2017-09-13] VITALS (7 sets, daily range): BP systolic 125–165; BP diastolic 66–91
[2017-09-13] MEDS: SODIUM CHLORIDE 0.9% 1000ML 1,000 ML IV SCH ×3 (01:51→20:16)
[2017-09-13] MEDS: HYDROMORPHONE 2MG/ML INJ IV PRN ×4 (01:51→20:04)
[2017-09-13] MEDS: CEFEPIME HCL 2 GM VIAL IV SCH ×3 (03:17→22:10)
[2017-09-13] MEDS: VANCOMYCIN 1GM/NS 250 ML 250 ML IV SCH ×2 (05:49→19:04)
[2017-09-13] MEDS: INSULIN LISPRO 100 UNIT/1 ML 3ML VIAL SQ SCH ×7 (07:26→21:00)
[2017-09-13] MEDS: FAMOTIDINE 20 MG TAB PO SCH ×2 (08:37→16:42)
[2017-09-13] MEDS: DOCUSATE SODIUM 100 MG CAP PO SCH ×2 (08:37→16:42)
[2017-09-13] MEDS: NICOTINE 14 MG/EA PATCH TOP SCH (08:38)
[2017-09-13] MEDS: LOSARTAN POTASSIUM 25 MG TAB PO SCH (08:38)
[2017-09-13] MEDS ORDERED: INSULIN DETEMIR 100 UNIT/ML PEN SQ SCH (09:00)
--- NOTE | 2017-09-13 12:10 | Progress Note ---
DATE: September 13, 2017 TIME: 11 a.m. OVERNIGHT: Underwent surgical management. His pain is about 3/10. REVIEW OF SYSTEMS: Denies any dizziness or chest pain. PHYSICAL EXAMINATION VITAL SIGNS: Reviewed. GENERAL: A tired-appearing man resting in bed. HEENT: Anicteric. CARDIOVASCULAR: Normal S1 and S2. LUNGS: Moderate breath sounds. ABDOMEN: Soft, nontender and nondistended. EXTREMITIES: No edema. His right TMA is clean and dry. His left TMA has dressing in place clean and dry. LABS: Reviewed. MEDICATIONS: Reviewed. ASSESSMENT: A 56-year-old man with: 1. Left diabetic foot ulcer/gangrene with osteomyelitis of the left foot. 2. Diabetes mellitus, type 2. 3. Tobacco abuse. 4. Dehydration. 5. Hypertension. 6. Constipation. 7. Diabetic neuropathy. 8. Enterococcus infection of the wound. PLAN 1. Continue antibiotics. 2. Enterococcus positive in the wound. Will continue and follow up sensitivity. 3. Continue diabetes management. 4. Obtain labs this morning. 5. Discharge planning to skilled facility. His vancomycin trough is 10.9 and therapeutic. Job#: [id number] MD
[2017-09-13 13:22] LABS: BASOPHILS # (AUTO) 0.1 (0.0-0.1); BASOPHILS % 0.8 % (0.0-1.0); EOSINOPHILS # (AUTO) 0.1 (0.0-0.4); EOSINOPHILS % 1.2 % (0.0-6.0); HEMATOCRIT 35.1 % (38.2-49.6); HEMOGLOBIN 11.4 g/dL (14.0-18.0); LYMPHOCYTES # (AUTO) 1.8 (1.0-3.2); LYMPHOCYTES % 15.2 % (18.0-39.1); MEAN CORPUSCULAR HEMOGLOBIN 28.6 pg (28-32); MEAN CORPUSCULAR HGB CONC 32.5 g/dL (31-35); MEAN CORPUSCULAR VOLUME 88.2 fL (81-99); MONOCYTES # (AUTO) 0.9 (0.2-0.8); MONOCYTES % 7.5 % (4.4-11.3); NEUTROPHILS # (AUTO) 8.7 (2.1-6.9); PLATELET COUNT 398 x10e3/uL (140-360); RED BLOOD COUNT 3.98 x10e6/uL (4.3-5.7); RED CELL DISTRIBUTION WIDTH 12.8 % (11.7-14.4)
[2017-09-13 13:44] LABS: BLOOD UREA NITROGEN 11 mg/dL (7-26); BUN/CREATININE RATIO 14 (6-25); CARBON DIOXIDE 28 mmol/L (22-29); CHLORIDE 101 mmol/L (98-107); CREATININE, SERUM 0.77 mg/dL (0.72-1.25); EST GLOMERULAR FILTRATION RATE > 60 ML/MIN (60-); GLUCOSE 225 mg/dL (74-118); SODIUM 137 mmol/L (136-145)
[2017-09-14] VITALS (7 sets, daily range): BP systolic 105–162; BP diastolic 55–93
--- NOTE | 2017-09-14 01:08 | Progress Note ---
DATE: September 13, 2017 SUBJECTIVE: Patient was seen at the bedside. Denying any history of fever, chills, nausea, or vomiting. OBJECTIVE VITALS: Afebrile. Vital signs stable. EXTREMITIES: Patients has been walking on the left foot against medical advice. Was instructed if he creates another surgical dehiscence may end up losing his leg. LABS: Noted. Has a white blood cell count of 11.55, hemoglobin 11.4, hematocrit 35.1 with a platelet count of 398,000. Has some bloody strike-through noted to the dressing of the left foot. ASSESSMENT 1. Status post left foot transmetatarsal amputation with Achilles tendon lengthening. 2. Incision and drainage of left foot with flap closure. PLAN: Will continue IV antibiotics. Dressing will be left for the next couple days intact. Patient instructed on strict nonweightbearing. Bedside commode was ordered. Will continue IV cefepime and vancomycin. Job#: [id number] ID
[2017-09-14] MEDS: SODIUM CHLORIDE 0.9% 1000ML 1,000 ML IV SCH ×3 (04:16→20:16)
[2017-09-14] MEDS: VANCOMYCIN 1GM/NS 250 ML 250 ML IV SCH ×2 (05:26→17:41)
[2017-09-14] MEDS: CEFEPIME HCL 2 GM VIAL IV SCH ×2 (05:47→10:11)
[2017-09-14] MEDS: FAMOTIDINE 20 MG TAB PO SCH ×2 (08:41→17:36)
[2017-09-14] MEDS: INSULIN LISPRO 100 UNIT/1 ML 3ML VIAL SQ SCH ×7 (08:42→20:29)
[2017-09-14] MEDS: DOCUSATE SODIUM 100 MG CAP PO SCH ×2 (08:42→17:36)
[2017-09-14] MEDS: LOSARTAN POTASSIUM 25 MG TAB PO SCH (08:42)
[2017-09-14] MEDS: NICOTINE 14 MG/EA PATCH TOP SCH (08:43)
[2017-09-14] MEDS ORDERED: INSULIN DETEMIR 100 UNIT/ML PEN SQ SCH (09:00)
[2017-09-14] MEDS ORDERED: MEROPENEM 500MG 500 MG in SODIUM CHLORIDE 0.9% 50ML 50 ML IV SCH (11:00)
--- NOTE | 2017-09-14 11:46 | Progress Note ---
DATE: September 14, 2017 TIME: 10:15 a.m. OVERNIGHT: Pain about 4/10. REVIEW OF SYSTEMS: Denies any dizziness. PHYSICAL EXAMINATION VITAL SIGNS: Reviewed. GENERAL: A tired-appearing man resting in bed. HEENT: Anicteric. CARDIOVASCULAR: Normal S1 and S2. LUNGS: Moderate breath sounds. ABDOMEN: Soft, nontender and nondistended. EXTREMITIES: He has a right TMA clean and dry. He has left TMA with dressing in place. LABS: Reviewed. MEDICATIONS: Reviewed. ASSESSMENT: This is a 56-year-old man with: 1. Left diabetic foot ulcer/gangrene with osteomyelitis with extended spectrum beta-lactamase klebsiella and enterococcus species of the left foot. 2. Diabetes mellitus, type 2. 3. Tobacco abuse. 4. Dehydration. 5. Hypertension. 6. Constipation. 7. Diabetic neuropathy. PLAN 1. Continue antibiotics. He is on meropenem. 2. Continue vancomycin for now. 3. Place PICC line. 4. Leukocytosis, resolving. 5. Glucose management per endocrinology. 6. Vancomycin trough therapeutic at 10.6. 7. Actually, will discontinue cefepime and use meropenem. Infectious disease consultation. 8. Continue nicotine patch. 9. Continue Pepcid prophylactically and add Lovenox to regimen. 10. Discharge planning. Job#: [id number] ELDA
[2017-09-14] MEDS: HYDROMORPHONE 2MG/ML INJ IV PRN (11:50)
[2017-09-14] MEDS: METOPROLOL TARTRATE 25 MG TAB PO SCH ×2 (12:01→20:42)
--- NOTE | 2017-09-14 13:08 | Diagnostic Imaging Report ---
Examination: Single AP view of the chest. COMPARISON: None. INDICATION: Line placement DISCUSSION: Lines/tubes: Right PICC line placement with tip overlying the superior vena cava. Lungs: Scattered calcified granuloma. Scattered metallic BBs. Pleura: There is no pleural effusion or pneumothorax. Heart and mediastinum: The heart and the mediastinum are unremarkable. Bones and soft tissues: No acute bony abnormalities. IMPRESSION: 1. Right PICC line with tip overlying the superior vena cava. Signed by: Dr. Davis Sanders M.D. on 09/14/2017 1:04 PM
--- NOTE | 2017-09-14 14:30 | Progress Note ---
DATE: September 14, 2017 SUBJECTIVE: Patient was seen at bedside. Doing well. Denying any history of fever, chills, nausea, or vomiting. OBJECTIVE VITALS: Afebrile, pulse rate 98, respirations 18, blood pressure 157/81, and O2 saturation 98%. EXTREMITIES: Dressing is showing some bloody strike-through. Patient informed once again he needs to stop walking on his foot. Skin temperature warm to touch. ASSESSMENT: Status post left foot surgery, multiple procedures. PLAN: Continue nonweightbearing. Continue IV antibiotics. Dressing will be changed sometime next week. Will continue IV antibiotics. Job#: [id number] RI
[2017-09-14] MEDS ORDERED: ENOXAPARIN SOD INJ 40 MG/0.4 ML SYR SC SCH (17:00)
[2017-09-14] MEDS ORDERED: MEROPENEM 500 MG VIAL IV SCH ×2 (18:00→20:00)
[2017-09-14] MEDS: MEROPENEM 500 MG VIAL IV SCH ×2 (20:16→23:56)
[2017-09-15 01:40] VITALS: BP 164/89
[2017-09-15] MEDS: SODIUM CHLORIDE 0.9% 1000ML 1,000 ML IV SCH (04:16)
[2017-09-15 05:07] VITALS: BP 151/86
[2017-09-15] MEDS: MEROPENEM 500 MG VIAL IV SCH ×2 (05:23→12:00)
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
[2017-09-15] MEDS: HYDROMORPHONE 2MG/ML INJ IV PRN ×2 (06:07→10:04)
--- NOTE | 2017-09-15 06:57 | Progress Note ---
DATE: September 15, 2017 TIME: 5:50 a.m. OVERNIGHT: Feeling better. Pain is controlled. REVIEW OF SYSTEMS: Denies any dizziness. PHYSICAL EXAMINATION VITAL SIGNS: Reviewed. GENERAL: A tired-appearing man resting in bed. HEENT: Anicteric. CARDIOVASCULAR: Normal S1 and S2. LUNGS: Moderate breath sounds. ABDOMEN: Soft, nontender and nondistended. EXTREMITIES: Right TMA well-healed. Left TMA with dressing in place clean and dry. SKIN: Dry. PSYCHIATRIC: Normal affect. LABS: Reviewed. MEDICATIONS: Reviewed. ASSESSMENT: A 56-year-old man with: 1. Left diabetic foot ulcer/gangrene with cellulitis with extended spectrum beta-lactamase, klebsiella and enterococcus species. 2. Diabetes mellitus, type 2. 3. Tobacco abuse. 4. Dehydration. 5. Hypertension. 6. Constipation. 7. Diabetic neuropathy. PLAN 1. Continue IV meropenem. Continue IV vancomycin. Infectious disease on board assisting in management. 2. Continue glucose management per endocrinology. 3. Obtain labs this morning. 4. Discharge planning to skilled facility pending this morning. 5. Continue cigarette cessation. Continue nicotine patch. 6. Awaiting insurance approval for skilled facility. Job#: [id number] OH
[2017-09-15 08:00] VITALS: BP 119/74
[2017-09-15] MEDS: FAMOTIDINE 20 MG TAB PO SCH (08:31)
[2017-09-15] MEDS: DOCUSATE SODIUM 100 MG CAP PO SCH (08:32)
[2017-09-15] MEDS: INSULIN LISPRO 100 UNIT/1 ML 3ML VIAL SQ SCH ×4 (08:32→11:30)
[2017-09-15] MEDS: LOSARTAN POTASSIUM 25 MG TAB PO SCH (08:33)
[2017-09-15] MEDS: METOPROLOL TARTRATE 25 MG TAB PO SCH (08:33)
[2017-09-15] MEDS: NICOTINE 14 MG/EA PATCH TOP SCH (08:36)
[2017-09-15] MEDS: VANCOMYCIN 1GM/NS 250 ML 250 ML IV SCH (08:37)
[2017-09-15 08:39] VITALS: BP 119/74
[2017-09-15] MEDS ORDERED: INSULIN DETEMIR 100 UNIT/ML PEN SQ SCH (09:00)
[2017-09-15 12:00] VITALS: BP 110/69
--- NOTE | 2017-09-15 13:54 | Progress Note ---
DATE: September 15, 2017 SUBJECTIVE: Patient was seen at bedside. Doing well. Denies any history of fever, chills, nausea, or vomiting. OBJECTIVE VITAL SIGNS: Afebrile, pulse rate 95, respirations 20, blood pressure 119/74, and O2 saturation 99%. EXTREMITIES: Incision site looks pristine. No signs of any type of surgical dehiscence. Some drainage noted. Negative foul smell. Decreased cellulitis with some edema present to the forefoot aspect, left foot. Flap is viable. ASSESSMENT: Status post left foot surgery, multiple procedures. PLAN: Dressing was changed. Patient put back in a posterior splint. Patient will need IV antibiotics for the next 2-3 weeks. [facility] Patient is to follow up in the office in 4 weeks. Instructed on strict nonweightbearing to prevent any type of surgical dehiscence. Patient understands if he walks and it becomes a surgical dehiscence, may need a more proximal amputation, which may include a below the knee amputation. Job#: [id number] MS
[2017-09-15] MEDS ORDERED: INSULIN LISPRO 100 UNIT/1 ML 3ML VIAL SQ SCH (16:30)
== END 2017-09-15 15:38 | DRG 240 ==
LOC: ER 15:10 → MED/SURG2 22:18
PROVIDERS: ADMIT Internal Medicine; ATTEND Internal Medicine
PROC: 0JBR0ZZ Excision of Left Foot Subcutaneous Tissue and Fascia, Open Approach (ICD-10-PCS; 2017-09-12)
PROC: 0HXNXZZ Transfer Left Foot Skin, External Approach (ICD-10-PCS; 2017-09-12)
PROC: 0Y6N0ZB Detachment at Left Foot, Partial 2nd Ray, Open Approach (ICD-10-PCS; 2017-09-12)
PROC: 0Y6N0ZC Detachment at Left Foot, Partial 3rd Ray, Open Approach (ICD-10-PCS; 2017-09-12)
PROC: 0Y6N0ZD Detachment at Left Foot, Partial 4th Ray, Open Approach (ICD-10-PCS; 2017-09-12)
PROC: 0Y6N0ZF Detachment at Left Foot, Partial 5th Ray, Open Approach (ICD-10-PCS; 2017-09-12)
PROC: 0L8T0ZZ Division of Left Ankle Tendon, Open Approach (ICD-10-PCS; 2017-09-12)
PROC: 02HV33Z Insertion of Infusion Device into Superior Vena Cava, Percutaneous Approach (ICD-10-PCS; 2017-09-12)
PROC: 0Y6N0Z9 Detachment at Left Foot, Partial 1st Ray, Open Approach (ICD-10-PCS; principal; 2017-09-12 07:00)
DX: E11.52 Type 2 diabetes mellitus with diabetic peripheral angiopathy with gangrene (principal); E11.621 Type 2 diabetes mellitus with foot ulcer; M86.9 Osteomyelitis, unspecified; F17.213 Nicotine dependence, cigarettes, with withdrawal; L97.526 Non-pressure chronic ulcer of other part of left foot with bone involvement without evidence of necrosis; E11.69 Type 2 diabetes mellitus with other specified complication; Z79.4 Long term (current) use of insulin; E86.0 Dehydration; K59.00 Constipation, unspecified; B96.1 Klebsiella pneumoniae [K. pneumoniae] as the cause of diseases classified elsewhere; Z16.12 Extended spectrum beta lactamase (ESBL) resistance; M21.542 Acquired clubfoot, left foot; M21.272 Flexion deformity, left ankle and toes; S05.91XS Unspecified injury of right eye and orbit, sequela; H54.40 Blindness, one eye, unspecified eye
CPT/HCPCS: 36415; 36569; 71010; 71045; 80048; 80053; 80061; 80202; 82948; 83036; 83605; 84439; 84443; 85025; 85610; 85651; 85730; 86140; 87040; 87071; 87075; 87186; 87205; 88305; 88307; 88311; 93005; 99284; J0692; J0720; J1100; J1650; J1885; J2001; J2185; J2250; J2270; J2405; J3370; J7030

== ENCOUNTER 2018-04-29 11:51 | Observation (INO) | payer MEDICARE, OTHER ==
[~2018-04-29] VITALS: Ht 177.8 cm; Wt 54.4 kg
[2018-04-29] MEDS ORDERED: SODIUM CHLORIDE 0.9% 1000ML 1,000 ML IV STA ×2 (11:54→13:28)
[2018-04-29 12:28] LABS: BASOPHILS # (AUTO) 0.1 (0.0-0.1); BASOPHILS % 0.7 % (0.0-1.0); EOSINOPHILS # (AUTO) 0.1 (0.0-0.4); EOSINOPHILS % 0.7 % (0.0-6.0); HEMATOCRIT 41.9 % (38.2-49.6); HEMOGLOBIN 14.2 g/dL (14.0-18.0); LYMPHOCYTES # (AUTO) 1.6 (1.0-3.2); LYMPHOCYTES % 17.1 % (18.0-39.1); MEAN CORPUSCULAR HEMOGLOBIN 29.5 pg (28-32); MEAN CORPUSCULAR HGB CONC 33.9 g/dL (31-35); MEAN CORPUSCULAR VOLUME 87.1 fL (81-99); MONOCYTES # (AUTO) 0.8 (0.2-0.8); MONOCYTES % 7.9 % (4.4-11.3); NEUTROPHILS # (AUTO) 7.1 (2.1-6.9); NEUTROPHILS % 73.4 % (38.7-80.0); PLATELET COUNT 239 x10e3/uL (140-360); RED BLOOD COUNT 4.81 x10e6/uL (4.3-5.7); RED CELL DISTRIBUTION WIDTH 13.7 % (11.7-14.4)
[2018-04-29 12:46] LABS: ALANINE AMINOTRANSFERASE 22 IU/L (0-55); ALBUMIN 3.9 g/dL (3.5-5.0); ALKALINE PHOSPHATASE 111 IU/L (40-150); ANION GAP 16.1 mmol/L (8-16); BLOOD UREA NITROGEN 15 mg/dL (7-26); BUN/CREATININE RATIO 13 (6-25); CALCIUM 9.9 mg/dL (8.4-10.2); CARBON DIOXIDE 27 mmol/L (22-29); CHLORIDE 91 mmol/L (98-107); CREATININE, SERUM 1.19 mg/dL (0.72-1.25); EST GLOMERULAR FILTRATION RATE > 60 ML/MIN (60-); LIPASE 16 U/L (8-78); POTASSIUM 4.1 mmol/L (3.5-5.1); SODIUM 130 mmol/L (136-145)
[2018-04-29 12:47] LABS: GLUCOSE 530 mg/dL (74-118)
--- NOTE | 2018-04-29 13:24 | Diagnostic Imaging Report ---
Examination: CT BRAIN WITHOUT CONTRAST History:Weakness. Comparison studies:Head CT performed July 27, 2017. Technique: Axial images were obtained from the skull base to the vertex. Coronal and sagittal images reconstructed from the axial data. Dose modulation, iterative reconstruction, and/or weight based adjustment of the mA/kV was utilized to reduce the radiation dose to as low as reasonably achievable. Intravenous contrast: None Findings: Scalp/skull: Unchanged several punctate metallic foreign bodies in the right parietal scalp. No fractures or soft tissue swelling. Brain sulci: Mildly prominent. Ventricles: Ex vacuo dilatation. No hydrocephalus. Extra-axial spaces: No masses. No fluid collections. Parenchyma: Small chronic right thalamic and putamen lacunar infarcts. No masses, hemorrhage, or acute cortical vascular insults. Sellar/suprasellar region: No abnormalities. Craniocervical junction: Patent foramen magnum. No Chiari one malformation. Incidental findings: Atherosclerotic calcification of the cavernous and supraclinoid internal carotid and V4 segments of the bilateral vertebral arteries.. Impression: No new or acute intracranial abnormality when compared to prior head CT performed July 27, 2017. Signed by: Dr. Nicki Best M.D. on 04/29/2018 1:20 PM
[2018-04-29] MEDS: SODIUM CHLORIDE 0.9% 1000ML 1,000 ML IV SCH ×3 (13:27→22:54)
[2018-04-29] MEDS ORDERED: INSULIN REGULAR, HUMAN 100 UNIT/1 ML 3ML VIAL IV ONE (13:30)
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
[2018-04-29 14:12] LABS: BILIRUBIN,URINE NEGATIVE (NEGATIVE); CLARITY,URINE SL CLOUDY (CLEAR); COLOR,URINE YELLOW (YELLOW); KETONES,URINE 1+ (NEGATIVE); LEUKOCYTE ESTERASE ,URINE NEGATIVE (NEGATIVE); NITRITE,URINE NEGATIVE (NEGATIVE); PROTEIN,URINE DIPSTICK NEGATIVE (NEGATIVE); URINE UROBILINOGEN 0.2 mg/dL (0.2 - 1)
[2018-04-29 14:37] LABS: EPITHELIAL CELLS,URINE FEW /LPF; MUCUS,URINE FEW (RARE)
[2018-04-29] MEDS ORDERED: DEXTROSE 50% SYRINGE 50 ML IV PRN (14:45)
[2018-04-29] MEDS ORDERED: GABAPENTIN 300 MG CAP PO PRN (15:00)
[2018-04-29] MEDS ORDERED: GABAPENTIN 400 MG CAP PO PRN (15:00)
[2018-04-29 15:16] VITALS: BP 179/86
[2018-04-29 15:19] VITALS: BP 179/86
[2018-04-29 15:22] LABS: CHOL/HDL RATIO 3.5 (3.9-4.7)
--- NOTE | 2018-04-29 15:25 | History and Physical ---
PRIMARY CARE PHYSICIAN: Dr. Turcios. CHIEF COMPLAINT: Nausea, vomiting, and elevated blood sugar. HISTORY OF PRESENT ILLNESS: This is a 57-year-old male with a history of diabetes mellitus which has been poorly controlled in the past. Now, developing nausea, vomiting, reduced oral intake for the past 2 weeks. He admits to not taking his medications for at least 2 days. He has restarted smoking. He denies any other problems at this time. No chest pain or shortness of breath. PAST MEDICAL HISTORY: Diabetes mellitus type 2, peripheral vascular disease, peripheral neuropathy, diabetic neuropathy, cataracts, bilateral diabetic foot ulcers, status post bilateral TMA, plus gluteal abscesses, medication noncompliance, physical deconditioning. PAST SURGICAL HISTORY: Bilateral TMA status post diabetic foot ulcers. ALLERGIES: PER ELECTRONIC MEDICAL RECORD. FAMILY HISTORY/SOCIAL HISTORY: Patient is . He has several children. He has a significant history of smoking, continues to smoke intermittently, has been smoking for at least 30 years. MEDICATIONS: Per electronic medical record. REVIEW OF SYSTEMS: Denies any dizziness, chest pain, shortness of breath. Denies any fever, chills, sweats. Denies any headache, diarrhea, back pain, vision change. PHYSICAL EXAMINATION VITAL SIGNS: Reviewed. GENERAL: A tired-appearing man, resting in bed. HEENT: Anicteric. His right eye is opaque. CARDIOVASCULAR: Normal S1 and S2. LUNGS: Moderate breath sounds. ABDOMEN: Soft, nontender and nondistended. EXTREMITIES: He has bilateral TMA. Right is well-healed, looks good. The left has a small scab on the lateral border of the TMA surgical site. Otherwise looks good and healthy and warm bilaterally. SKIN: Dry. PSYCHIATRIC: Flat affect. NEUROLOGICAL: Alert and oriented x3. Moving all extremities. LABS: Reviewed. MEDICATIONS: Reviewed. ASSESSMENTS: A 57-year-old man with 1. Uncontrolled diabetes mellitus, type 2. His glucose level is 530. 2. Medication noncompliance. 3. Dehydration. 4. Nausea and vomiting. 5. Diabetic neuropathy. 6. Constipation. 7. Hypotension. 8. Hyperlipidemia. 9. Cigarette use. PLANS 1. Rehydrate patient. 2. Restart insulin. 3. Consult his information manager. 4. Bar Back on medication compliance. 5. Bar Back on complete cigarette cessation. 6. Restart gabapentin. 7. Restart bowel regimen. 8. Restart losartan. 9. Use Lovenox for DVT prophylaxis and Pepcid for GI prophylaxis. 10. Disposition: To rehydrate, give insulin, and start diabetic diet, obtain labs. Job#: [id number] TA
[2018-04-29 15:27] LABS: ABG HCO3 27 mmol/L (23-28); ABG PCO2 38 mmHg (41-51); ABG PH 7.46 (7.31-7.41); ABG PO2 82 mmHg (80-105)
[2018-04-29 15:43] VITALS: BP 179/86
[2018-04-29 15:46] VITALS: BP 179/86
[2018-04-29] MEDS ORDERED: INSULIN LISPRO 7 UNIT SQ SCH (16:30)
[2018-04-29] MEDS: INSULIN LISPRO 100 UNIT/1 ML 3ML VIAL SQ SCH (17:00)
[2018-04-29] MEDS ORDERED: ENOXAPARIN SOD INJ 40 MG/0.4 ML SYR SC SCH (17:00)
[2018-04-29] MEDS ORDERED: LABETALOL HCL 5 MG/ML 20ML VIAL IV PRN (17:15)
[2018-04-29] MEDS: FAMOTIDINE 20 MG/2 ML VIAL IV SCH (17:28)
[2018-04-29] MEDS: DOCUSATE SODIUM 100 MG CAP PO SCH (17:28)
[2018-04-29 19:13] VITALS: BP 121/71
[2018-04-29 19:14] VITALS: BP 121/71
[2018-04-29] MEDS ORDERED: INSULIN DETEMIR LEVEMIR SQ SCH (21:00)
[2018-04-29] MEDS ORDERED: INSULIN DETEMIR 100 UNIT/ML PEN SQ SCH (21:00)
[2018-04-30] VITALS: BP 133/64
[2018-04-30 04:32] VITALS: BP 135/81
[2018-04-30] MEDS ORDERED: PRAVASTATIN SOD40 MG PO (06:53)
[2018-04-30] MEDS ORDERED: EFFEXOR XR 3737.5 MG PO (06:54)
[2018-04-30] MEDS ORDERED: ZOFRAN ODT4 MG PO (06:55)
[2018-04-30 07:04] LABS: BASOPHILS # (AUTO) 0.1 (0.0-0.1); BASOPHILS % 1.1 % (0.0-1.0); EOSINOPHILS # (AUTO) 0.2 (0.0-0.4); EOSINOPHILS % 1.8 % (0.0-6.0); HEMATOCRIT 36.8 % (38.2-49.6); HEMOGLOBIN 12.5 g/dL (14.0-18.0); LYMPHOCYTES # (AUTO) 2.9 (1.0-3.2); LYMPHOCYTES % 34.2 % (18.0-39.1); MEAN CORPUSCULAR HEMOGLOBIN 29.4 pg (28-32); MEAN CORPUSCULAR VOLUME 86.6 fL (81-99); MONOCYTES # (AUTO) 0.8 (0.2-0.8); MONOCYTES % 8.9 % (4.4-11.3); NEUTROPHILS # (AUTO) 4.5 (2.1-6.9); NEUTROPHILS % 53.8 % (38.7-80.0); PLATELET COUNT 212 x10e3/uL (140-360); RED BLOOD COUNT 4.25 x10e6/uL (4.3-5.7); RED CELL DISTRIBUTION WIDTH 13.4 % (11.7-14.4)
[2018-04-30 07:22] VITALS: BP 123/68
[2018-04-30 07:25] LABS: ANION GAP 11.1 mmol/L (8-16); BLOOD UREA NITROGEN 11 mg/dL (7-26); BUN/CREATININE RATIO 15 (6-25); CALCIUM 8.8 mg/dL (8.4-10.2); CARBON DIOXIDE 25 mmol/L (22-29); CHLORIDE 101 mmol/L (98-107); CREATININE, SERUM 0.71 mg/dL (0.72-1.25); EST GLOMERULAR FILTRATION RATE > 60 ML/MIN (60-); GLUCOSE 153 mg/dL (74-118); POTASSIUM 3.1 mmol/L (3.5-5.1); SODIUM 134 mmol/L (136-145)
[2018-04-30] MEDS: FAMOTIDINE 20 MG/2 ML VIAL IV SCH (08:39)
[2018-04-30] MEDS: DOCUSATE SODIUM 100 MG CAP PO SCH (08:39)
[2018-04-30] MEDS: INSULIN LISPRO 100 UNIT/1 ML 3ML VIAL SQ SCH ×2 (08:40→12:00)
[2018-04-30] MEDS ORDERED: POTASSIUM CHLORIDE 20 MEQ TAB CR PO ONE (08:45)
[2018-04-30] MEDS ORDERED: LOSARTAN POTASSIUM 25 MG TAB PO SCH (09:00)
[2018-04-30 11:10] VITALS: BP 140/79
[2018-04-30] MEDS: SODIUM CHLORIDE 0.9% 1000ML 1,000 ML IV SCH (13:27)
[2018-04-30 14:50] LABS: FREE T4 (FREE THYROXINE) 1.19 ng/dL (0.9-1.8)
[2018-04-30 15:36] VITALS: BP 124/71
[2018-04-30 15:55] LABS: THYROID STIMULATING HORMONE 1.746 uIU/mL (0.350-4.940)
[2018-04-30] MEDS ORDERED: INSULIN LISPRO 100 UNIT/1 ML 3ML VIAL SQ SCH (16:30)
--- NOTE | 2018-04-30 16:59 | Consultation ---
DATE OF CONSULTATION: 2017 ENDOCRINE CONSULTATION HISTORY OF PRESENT ILLNESS: This is a 57-year-old black gentleman who is very well known to me from his previous hospital admissions. Patient is a known case of diabetes mellitus type 2 with complications including severe diabetic sensorimotor neuropathy and is suppose to be taking Levemir insulin at bedtime 20 units and Humalog 10 with each meal depending upon the blood sugars. Patient came to the hospital at this time with history of muscle weakness, significant weight loss, and extreme dizziness. On further evaluation in the emergency room, his blood sugar was found to be 530. His anion gap was 16.1 and his hemoglobin A1c is 13.8. The patient has a lot of problems with complaints in the past. He has multiple complications from diabetes including severe diabetic sensorimotor neuropathy, diabetic foot ulcers, chronic renal insufficiency, and hypertension. PHYSICAL EXAMINATION GENERAL: Today, the patient is alert, awake, little bit apprehensive. He is thin built. He is blind on the right eye. CHEST: Bilateral vesicular breathing. He has mild bronchospasm. CARDIAC: Both first and second heart sounds. There is no third or fourth heart sound. Ejection systolic murmur, grade 2/6. EXTREMITIES: Patient has evidence of diabetic sensory neuropathy in both lower extremities and foot ulcers. CLINICAL IMPRESSION 1. Diabetes mellitus type 1 uncontrolled with complications. Noncompliance with medications. 2. Severe diabetic sensory motor neuropathy. 3. Hypertension. The plan at this time is to monitor his blood sugars and put him back on the Levemir and Humalog insulin. He also needs tighter blood pressure control. Thanks for referring this patient. I will be following this patient with you. Job#: [id number] VAS RITESH
--- NOTE | 2018-05-05 01:43 | Discharge Summary ---
PRINCIPAL DIAGNOSES 1. Uncontrolled diabetes mellitus type 2 with hemoglobin A1c 13.9, LDL 130 and triglycerides 110. 2. Dehydration. 3. Nausea and vomiting. 4. Diabetic neuropathy. 5. Constipation. 6. Hypotension. 7. Hyperlipidemia. 8. Cigarette abuse. SECONDARY DIAGNOSIS: Diabetes mellitus type 2. CHIEF COMPLAINT: Nausea, vomiting, elevated blood glucose. HISTORY OF PRESENT ILLNESS: This is a 57-year-old man with nausea, vomiting. Please refer to H and P for further details. Hospital course: The patient was found to have uncontrolled diabetes type 2, hemoglobin A1c 13 range and his glucose 530. He was dehydrated and had nausea and vomiting, treated with IV fluids. I counseled on medication compliance. He had a cigarette use and hyperlipidemia. He was treated with medication regimen. Hypotension, adjusted IV fluids. Constipation addressed. The patient did well. Subsequently, transitioned to out of hospital. DISCHARGE MEDICATIONS: Per electronic medical record. FOLLOWUP 1. With primary care doctor in 1 week. 2. Endocrinology in 2 weeks. CONDITION ON DISCHARGE: Stable and improved. DISCHARGE LOCATION: Home. PHILIP MOULTON MD Job#: [id number]
== END 2018-04-30 15:23 | disposition home or self-care (01) ==
LOC: ER 11:51 → ERHOLD 13:35 → IMCU 14:51
PROVIDERS: ADMIT Internal Medicine; ATTEND Internal Medicine
DX: E11.65 Type 2 diabetes mellitus with hyperglycemia (principal); I10 Essential (primary) hypertension; Z89.432 Acquired absence of left foot; Z89.431 Acquired absence of right foot; Z83.3 Family history of diabetes mellitus; Z82.49 Family history of ischemic heart disease and other diseases of the circulatory system; Z91.14 Patient's other noncompliance with medication regimen; E86.0 Dehydration; E11.42 Type 2 diabetes mellitus with diabetic polyneuropathy; K59.00 Constipation, unspecified; I95.9 Hypotension, unspecified; E78.5 Hyperlipidemia, unspecified; Z72.0 Tobacco use; E11.51 Type 2 diabetes mellitus with diabetic peripheral angiopathy without gangrene; Z79.4 Long term (current) use of insulin
CPT/HCPCS: 36415 ×2; 70450; 71045; 80048; 80053; 80061; 81001; 82805; 82948 ×2; 83036 ×2; 83690; 84439; 84443; 85025 ×2; 99284; G0378 ×2; J1650; J3490; J7030; 36600

== ENCOUNTER 2018-07-30 17:43 | Emergency (ER) | payer MEDICARE, OTHER ==
[~2018-07-30] VITALS: Ht 177.8 cm; Wt 50.8 kg
[~2018-07-30 17:43] MED LIST changes: +EFFEXOR XR 3737.5 MG PO; +PRAVASTATIN SOD40 MG PO; +ZOFRAN ODT4 MG PO
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
[2018-07-30] MEDS ORDERED: ONDANSETRON HCL INJ 2 MG/ML VIAL IV ONE ×2 (19:43→21:00)
[2018-07-30] MEDS ORDERED: SODIUM CHLORIDE 0.9% 1000ML 1,000 ML IV ONE (19:45)
[2018-07-30] MEDS ORDERED: DIATRIZOATE MEGL/DIATRIZOA SOD 30 ML BTL PO ONE (20:47)
[2018-07-30 20:49] LABS: BASOPHILS # (AUTO) 0.1 (0.0-0.1); BASOPHILS % 0.8 % (0.0-1.0); EOSINOPHILS # (AUTO) 0.2 (0.0-0.4); EOSINOPHILS % 1.6 % (0.0-6.0); HEMATOCRIT 40.5 % (38.2-49.6); HEMOGLOBIN 13.8 g/dL (14.0-18.0); LYMPHOCYTES # (AUTO) 2.8 (1.0-3.2); LYMPHOCYTES % 30.5 % (18.0-39.1); MEAN CORPUSCULAR HGB CONC 34.1 g/dL (31-35); MONOCYTES # (AUTO) 0.9 (0.2-0.8); MONOCYTES % 9.7 % (4.4-11.3); NEUTROPHILS # (AUTO) 5.2 (2.1-6.9); NEUTROPHILS % 57.2 % (38.7-80.0); PLATELET COUNT 292 x10e3/uL (140-360); RED CELL DISTRIBUTION WIDTH 12.8 % (11.7-14.4)
[2018-07-30 20:59] LABS: ALANINE AMINOTRANSFERASE 22 IU/L (0-55); ALBUMIN 3.6 g/dL (3.5-5.0); ALBUMIN/GLOBULIN RATIO 0.9 (0.8-2.0); ALKALINE PHOSPHATASE 112 IU/L (40-150); AMYLASE 63 U/L (25-125); ANION GAP 14.8 mmol/L (8-16); BLOOD UREA NITROGEN 14 mg/dL (7-26); BUN/CREATININE RATIO 16 (6-25); CALCIUM 9.8 mg/dL (8.4-10.2); CARBON DIOXIDE 24 mmol/L (22-29); CHLORIDE 98 mmol/L (98-107); EST GLOMERULAR FILTRATION RATE > 60 ML/MIN (60-); GLUCOSE 139 mg/dL (74-118); LIPASE 65 U/L (8-78); POTASSIUM 3.8 mmol/L (3.5-5.1); SODIUM 133 mmol/L (136-145)
[2018-07-30] MEDS ORDERED: PANTOPRAZOLE 40 MG 10ML VIAL IV ONE (21:00)
[2018-07-30 21:16] LABS: CREATINE KINASE 46 IU/L (30-200)
[2018-07-30 21:57] LABS: CLARITY,URINE CLEAR (CLEAR); COLOR,URINE YELLOW (YELLOW); LEUKOCYTE ESTERASE ,URINE NEGATIVE (NEGATIVE); NITRITE,URINE NEGATIVE (NEGATIVE); PROTEIN,URINE DIPSTICK NEGATIVE (NEGATIVE)
[2018-07-30 21:58] LABS: BILIRUBIN,URINE NEGATIVE (NEGATIVE); KETONES,URINE NEGATIVE (NEGATIVE); URINE UROBILINOGEN 0.2 mg/dL (0.2 - 1)
[2018-07-30 22:12] LABS: EPITHELIAL CELLS,URINE FEW /LPF
[2018-07-30 22:13] LABS: MUCUS,URINE FEW (RARE); RBC,URINE 0-5 /HPF (0-5)
--- NOTE | 2018-07-30 22:23 | Diagnostic Imaging Report ---
EXAMINATION: CHEST 2 VIEWS INDICATION: Weight loss. Smoker. COMPARISON: Chest x-ray 09/14/2017 FINDINGS: PA and lateral views TUBES and LINES: None. LUNGS: Lungs are well inflated. Scattered calcified granulomas. Emphysematous changes. Scarring in the left mid lung. There is no evidence of pneumonia or pulmonary edema. PLEURA: No pleural effusion or pneumothorax. HEART AND MEDIASTINUM: The cardiomediastinal silhouette is unremarkable. BONES AND SOFT TISSUES: No acute osseous lesion. Scattered metallic BBs. UPPER ABDOMEN: No free air under the diaphragm. IMPRESSION: No acute thoracic abnormality. Signed by: DR. Kenny Malhotra MD on 07/30/2018 10:20 PM
--- NOTE | 2018-07-30 22:33 | Diagnostic Imaging Report ---
EXAM: CT Abdomen and Pelvis WITH contrast INDICATION: Nausea, vomiting.18 LB WEIGHT LOSS X 4 WEEKS COMPARISON: None. TECHNIQUE: Abdomen and pelvis were scanned utilizing a multidetector helical scanner from the lung base to the pubic symphysis after administration of IV contrast. Coronal and sagittal reformations were obtained. Routine protocol was performed. Scan was performed when during portal venous phase. IV CONTRAST: 100 mL of Isovue-370 ORAL CONTRAST: Gastroview COMPLICATIONS: None RADIATION DOSE: Total DLP: 169.7 mGy*cm Estimated effective dose: (DLP x 0.015 x size factor) mSv CTDIvol has been reviewed. It is below the limits set by the Radiation Protocol Committee (RPC). Dose modulation, iterative reconstruction, and/or weight based adjustment of the mA/kV was utilized to reduce the radiation dose to as low as reasonably achievable. FINDINGS: Evaluation limited by late arterial contrast timing, paucity of intraabdominal fat, and non-opacification of the distal small bowel loops with enteric contrast. LINES and TUBES: None. LOWER THORAX: Unremarkable HEPATOBILIARY: No focal hepatic lesions. No biliary ductal dilation. GALLBLADDER: No radio-opaque stones or sludge. No wall thickening. SPLEEN: No splenomegaly. PANCREAS: No focal masses or ductal dilatation. ADRENALS: No adrenal nodules KIDNEYS/URETERS: Kidneys enhance symmetrically. No hydronephrosis. No cystic or solid mass lesions. No stones. GI TRACT: No abnormal distention, wall thickening, or evidence of bowel obstruction. Large stool burden. Appendix is normal. PELVIC ORGANS/BLADDER: Distended bladder. LYMPH NODES: No lymphadenopathy. VESSELS: There is moderate atherosclerotic disease in the aorta and major arterial branches, severe in the common and external iliac arteries. PERITONEUM / RETROPERITONEUM: No free air or fluid. BONES: There are degenerative changes in the lumbar spine. SOFT TISSUES: Metallic fragment in the right back. Small fat-containing umbilical hernia. IMPRESSION: No acute abnormalities. No CT findings to explain weight loss within the limitations of the exam. Signed by: DR. Kenny Malhotra MD on 07/30/2018 10:30 PM
[2018-07-30 23:15] VITALS: BP 121/74
[2018-07-31] MEDS ORDERED: SODIUM CHLORIDE 0.9% 50ML 50 ML ONE (04:15)
[2018-07-31] MEDS ORDERED: IOPAMIDOL 370 MG/ML 200 ML INFUS..BTL INJ ONE (04:15)
== END 2018-07-30 23:27 | disposition home or self-care (01) ==
LOC: ER 17:43
DX: R11.2 Nausea with vomiting, unspecified (principal); N30.90 Cystitis, unspecified without hematuria; I10 Essential (primary) hypertension; E11.9 Type 2 diabetes mellitus without complications; F17.210 Nicotine dependence, cigarettes, uncomplicated
CPT/HCPCS: 36415; 71046; 74177; 80053; 81001; 82150; 82550; 82553; 82948; 83690; 83735; 84484; 85025; 87086; 93005; 96374; 99284; J2405; J7030; Q9663

== ENCOUNTER 2019-03-04 13:31 | Inpatient (IN) | payer MEDICARE, OTHER ==
[~2019-03-04] VITALS: Ht 177.8 cm; Wt 50.8 kg
[2019-03-04] MEDS ORDERED: SODIUM CHLORIDE 0.9% 1000ML 1,000 ML IV STA (13:36)
[2019-03-04] MEDS ORDERED: FAMOTIDINE 20 MG/2 ML VIAL IV ONE (13:45)
[2019-03-04] MEDS ORDERED: ONDANSETRON HCL INJ 2MG/ML 2ML 2 MG/ML VIAL IV PRN (13:45)
--- NOTE | 2019-03-04 14:11 | Diagnostic Imaging Report ---
EXAMINATION: CHEST SINGLE (PORTABLE) INDICATION: Chest pain COMPARISON: Multiple prior chest radiograph, most recently 07/30/2018 FINDINGS: TUBES and LINES: None. LUNGS: The lungs are well inflated. No focal consolidation or pulmonary edema. Scattered calcified granulomas. PLEURA: No pleural effusion or pneumothorax. HEART AND MEDIASTINUM: The cardiomediastinal silhouette is normal in size and contour. BONES AND SOFT TISSUES: No acute fracture or dislocation. Unchanged metallic BBs in the right chest soft tissues. UPPER ABDOMEN: No free air under the diaphragm. IMPRESSION: No focal pneumonia or pulmonary edema. Signed by: Katie Garcia MD on 03/04/2019 2:08 PM
[2019-03-04 14:50] LABS: BILIRUBIN,URINE NEGATIVE (NEGATIVE); CLARITY,URINE SL CLOUDY (CLEAR); COLOR,URINE YELLOW (YELLOW); KETONES,URINE NEGATIVE (NEGATIVE); LEUKOCYTE ESTERASE ,URINE NEGATIVE (NEGATIVE); NITRITE,URINE NEGATIVE (NEGATIVE); PROTEIN,URINE DIPSTICK NEGATIVE (NEGATIVE); URINE UROBILINOGEN 0.2 mg/dL (0.2 - 1)
[2019-03-04 14:50] LABS: BASOPHILS # (AUTO) 0.1 (0.0-0.1); BASOPHILS % 0.7 % (0.0-1.0); EOSINOPHILS # (AUTO) 0.1 (0.0-0.4); EOSINOPHILS % 1.5 % (0.0-6.0); HEMATOCRIT 37.9 % (38.2-49.6); HEMOGLOBIN 12.8 g/dL (14.0-18.0); LYMPHOCYTES # (AUTO) 1.8 (1.0-3.2); LYMPHOCYTES % 19.8 % (18.0-39.1); MEAN CORPUSCULAR HEMOGLOBIN 29.7 pg (28-32); MEAN CORPUSCULAR HGB CONC 33.8 g/dL (31-35); MEAN CORPUSCULAR VOLUME 87.9 fL (81-99); MONOCYTES # (AUTO) 0.9 (0.2-0.8); MONOCYTES % 9.6 % (4.4-11.3); NEUTROPHILS # (AUTO) 6.1 (2.1-6.9); PLATELET COUNT 316 x10e3/uL (140-360); RED BLOOD COUNT 4.31 x10e6/uL (4.3-5.7); RED CELL DISTRIBUTION WIDTH 12.9 % (11.7-14.4)
--- NOTE | 2019-03-04 14:51 | Diagnostic Imaging Report ---
Exam: Head CT without contrast History: Generalized weakness, altered mental status Comparison studies: Head CT 04/29/2018. Technique: Axial images were obtained from the skull base to the vertex. Coronal and sagittal images reconstructed from the axial data. Dose modulation, iterative reconstruction, and/or weight based adjustment of the mA/kV was utilized to reduce the radiation dose to as low as reasonably achievable. Radiation dose: Total DLP: 832 mGy*cm. Estimated effective dose: DLP x 0.015 Intravenous contrast: None Findings: Scalp and bones: Unchanged retained metallic foreign bodies in the right parietal and in that in the outer table the right parietal calvarium which result in artifact in the underlying brain parenchyma... Unchanged, nonaggressive-appearing subcentimeter lytic foci in the right parietal calvarium. No fractures. Brain sulci: Appropriate for age. Ventricles: Moderate ventriculomegaly, slightly distortion of sulcal prominence may be related to degree of central greater peripheral cortical volume loss. Consider normal pressure hydrocephalus (NPH) only in the appropriate clinical setting. Extra-axial spaces: No masses, no fluid collection. Parenchyma: New mass, acute hemorrhage or acute cortical insults. Small chronic lacunar infarcts in the right anteromedial thalamus, right lentiform nucleus and possibly in the right sue. Sellar/suprasellar region: No abnormalities. Craniocervical junction: Patent foramen magnum. No Chiari one malformation. Incidental findings: Calcified after cirrhosis in the carotid siphons and intradural vertebral arteries. IMPRESSION: No acute abnormalities. Chronic findings: 1. Generalized and callosal volume loss. 2. Small chronic lacunar infarcts as described. 3. Nonspecific ventriculomegaly as described. No acute hydrocephalus. Signed by: Dr. Murali Ramirez M.D. on 03/04/2019 2:48 PM
[2019-03-04 15:00] LABS: ALANINE AMINOTRANSFERASE 11 IU/L (0-55); ALBUMIN 3.5 g/dL (3.5-5.0); ALKALINE PHOSPHATASE 134 IU/L (40-150); ANION GAP 17.7 mmol/L (8-16); BLOOD UREA NITROGEN 16 mg/dL (7-26); BUN/CREATININE RATIO 16 (6-25); CALCIUM 9.4 mg/dL (8.4-10.2); CARBON DIOXIDE 24 mmol/L (22-29); CHLORIDE 96 mmol/L (98-107); CREATINE KINASE 57 IU/L (30-200); CREATININE, SERUM 0.98 mg/dL (0.72-1.25); EST GLOMERULAR FILTRATION RATE > 60 ML/MIN (60-); GLUCOSE 400 mg/dL (74-118); POTASSIUM 4.7 mmol/L (3.5-5.1); SODIUM 133 mmol/L (136-145)
[2019-03-04 15:04] LABS: AMORPHOUS SEDIMENT,URINE FEW (FEW)
[2019-03-04] MEDS ORDERED: ACETAMINOPHEN 325 MG TAB PO PRN (15:15)
[2019-03-04] MEDS ORDERED: DEXTROSE 50% SYRINGE 50 ML IV PRN (15:15)
[2019-03-04] MEDS ORDERED: DIPHENHYDRAMINE HCL INJ 50 MG/ML VIAL IV PRN (15:15)
[2019-03-04] MEDS: FAMOTIDINE 20 MG/2 ML VIAL IV SCH (15:25)
[2019-03-04] MEDS ORDERED: INSULIN REGULAR, HUMAN 100 UNIT/1 ML 3ML VIAL IV NR (15:30)
[2019-03-04] MEDS ORDERED: NPH, HUMAN INSULIN ISOPHANE 100 UNIT/1 ML 3ML VIAL SQ SCH (15:30)
--- NOTE | 2019-03-04 16:10 | NUR ---
PRIMARY CARE PHYSICIAN: Dr. Turcios. CHIEF COMPLAINT: malaise/fatigue. HISTORY OF PRESENT ILLNESS: This is a 58-year-old male with a history of diabetes mellitus now with malaise/fatigue, found to have glucose in 400s. Pt states that 2 weeks ago, started feeling deconditioned, went to take out trash, at dumpster pt fell. Legs quite weak. 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 Pt has weak legs, feels weak and has slurred speech. PAST MEDICAL HISTORY: Diabetes mellitus type 2, peripheral vascular disease, peripheral neuropathy, diabetic neuropathy, cataracts, bilateral diabetic foot ulcers, status post bilateral TMA, plus gluteal abscesses, medication noncompliance, physical deconditioning. PAST SURGICAL HISTORY: Bilateral TMA status post diabetic foot ulcers. ALLERGIES: PER ELECTRONIC MEDICAL RECORD. FAMILY HISTORY/SOCIAL HISTORY: Patient is . He has several children. He has a significant history of smoking, continues to smoke intermittently, has been smoking for at least 30 years. MEDICATIONS: Per electronic medical record. REVIEW OF SYSTEMS: Denies any dizziness, chest pain, shortness of breath. Denies any fever, chills, sweats. Denies any headache, diarrhea, back pain, vision change. PHYSICAL EXAMINATION VITAL SIGNS: Reviewed. GENERAL: A tired-appearing man, resting in bed. holding onto walker while sitting HEENT: Anicteric. His right eye is opaque. CARDIOVASCULAR: Normal S1 and S2. LUNGS: Moderate breath sounds. ABDOMEN: Soft, nontender and nondistended. EXTREMITIES: He has bilateral TMA. TMA sites normal appearing, no ulcer. Otherwise looks good and healthy and warm bilaterally. SKIN: Dry. PSYCHIATRIC: Flat affect. NEUROLOGICAL: Alert and oriented x3. Moving all extremities. LABS: Reviewed. MEDICATIONS: Reviewed. ASSESSMENTS: A 58-year-old man with Malaise/fatigue due to hyperglycemia Severe Physical deconditioning Slurred speech Uncontrolled DM2- last hba1c 13 in Medication noncompliance. Dehydration Diabetic neuropathy. HTN HLD Cigarete use PLAN rehydrate INsulin hba1c/lipids CHeck MRI brain PT consult; Pt may benefit from ARU eval. vitB12 and TSH SCD Sukh Monroe MD, PhD.
[2019-03-04] MEDS ORDERED: ONDANSETRON HCL 4 MG ORAL DISINTEGRATING TAB PO PRN (16:15)
[2019-03-04] MEDS ORDERED: TRAMADOL HCL 50 MG TAB PO PRN (16:15)
[2019-03-04] MEDS: INSULIN REGULAR, HUMAN 100 UNIT/1 ML 3ML VIAL SQ SCH ×2 (16:30→21:00)
[2019-03-04] MEDS ORDERED: INSULIN LISPRO 5 UNIT SQ SCH (16:30)
[2019-03-04] MEDS: FAMOTIDINE 20 MG TAB PO SCH ×2 (16:34→17:39)
[2019-03-04] MEDS: INSULIN LISPRO 100 UNIT/1 ML 3ML VIAL SQ SCH (17:00)
[2019-03-04] MEDS: DOCUSATE SODIUM 100 MG CAP PO SCH (17:39)
[2019-03-04] MEDS: LACTATED RINGER'S 1,000 ML IV SCH (17:39)
[2019-03-04 17:55] VITALS: BP 166/90
--- NOTE | 2019-03-04 17:55 | NUR ---
PATIENT RECEIVED FROM ER PER STRETCHER. ALERT AND VERBALLY RESPONSIVE. SKIN WARM AND DRY TO TOUCH, RESPIRATION EVEN AND UNLABORED, ABDOMEN SOFT AND NON DISTENDED. TMA ON BOTH FEET, YELLOW SOCKS APPLIED. PATIENT STATED THAT HE FELL AT HOME FEW DAYS AGO. DENIED PAIN AT THIS TIME. PATIENT HAS PERSONAL CANE, LABELLED. BED IN LOWER POSITION, CALL LIGHT AT REACH. INSTRUCTED TO CALL FOR ASSISTANCE NEEDED WITH RETURN DEMONSTRATION. BED ALARM ACTIVATED.
[2019-03-04] MEDS: VENLAFAXINE HCL 37.5MG XR CAP PO SCH (19:25)
[2019-03-04 20:00] VITALS: BP 160/81
--- NOTE | 2019-03-04 20:12 | NUR ---
RECEIVED PT IN BED AOX3 .DENIES PAIN RESPIRATIONS ARE EVEN AND UNLABORED .PT HAS TELE 27 SHOWS SR .PT HAS R FA 20 G LR AT 125 CC/HR .REDNESS TO THE SACRUM .HELPED THE PT TO THE RESTROOM .CALL LIGHT WITH IN REACH .CONTINUE TO MONITOR
[2019-03-04 20:27] VITALS: BP 160/81
[2019-03-04] MEDS: PRAVASTATIN 20 MG TAB PO SCH (20:52)
[2019-03-04] MEDS ORDERED: INSULIN GLARGINE 100 UNITS/ML VIAL SQ SCH ×2 (21:00)
[2019-03-04] MEDS: INSULIN GLARGINE 100 UNITS/ML VIAL SQ SCH (21:00)
[2019-03-05] VITALS (8 sets, daily range): BP systolic 127–156; BP diastolic 68–88
[2019-03-05] MEDS: ZOLPIDEM TARTRATE 5 MG TAB PO PRN ×2 (03:00→21:22)
[2019-03-05] MEDS: GABAPENTIN 400 MG CAP PO PRN (04:00)
[2019-03-05] MEDS: LACTATED RINGER'S 1,000 ML IV SCH ×2 (05:22→07:10)
[2019-03-05] MEDS: VENLAFAXINE HCL 37.5MG XR CAP PO SCH ×2 (06:00→17:41)
[2019-03-05 06:09] LABS: ANION GAP 12.7 mmol/L (8-16); BLOOD UREA NITROGEN 12 mg/dL (7-26); BUN/CREATININE RATIO 17 (6-25); CALCIUM 9.5 mg/dL (8.4-10.2); CARBON DIOXIDE 26 mmol/L (22-29); CHLORIDE 101 mmol/L (98-107); CREATININE, SERUM 0.72 mg/dL (0.72-1.25); EST GLOMERULAR FILTRATION RATE > 60 ML/MIN (60-); GLUCOSE 116 mg/dL (74-118); MAGNESIUM 1.9 MG/DL (1.3-2.1); PHOSPHORUS 3.8 MG/DL (2.3-4.7); POTASSIUM 3.7 mmol/L (3.5-5.1); SODIUM 136 mmol/L (136-145)
--- NOTE | 2019-03-05 06:10 | NUR ---
PT C/O INSOMINA AND GIVEN AMBIEN .PT RESTING NO ACUTE DISTRESS NOTED CALL LIGHT WITH IN REACH .CONTINUE TO MONITOR
--- NOTE | 2019-03-05 06:46 | NUR ---
IM- progress note O/N no events REVIEW OF SYSTEMS: Denies any dizziness, chest pain, shortness of breath. Denies any fever, chills, sweats. Denies any headache, diarrhea, back pain, vision change. PHYSICAL EXAMINATION VITAL SIGNS: Reviewed. GENERAL: A tired-appearing man, resting in bed. holding onto walker while sitting HEENT: Anicteric. His right eye is opaque. CARDIOVASCULAR: Normal S1 and S2. LUNGS: Moderate breath sounds. ABDOMEN: Soft, nontender and nondistended. EXTREMITIES: He has bilateral TMA. TMA sites normal appearing, no ulcer. Otherwise looks good and healthy and warm bilaterally. SKIN: Dry. PSYCHIATRIC: Flat affect. NEUROLOGICAL: Alert and oriented x3. Moving all extremities. LABS: Reviewed. MEDICATIONS: Reviewed. ASSESSMENTS: A 58-year-old man with Malaise/fatigue due to hyperglycemia Severe Physical deconditioning Slurred speech Uncontrolled DM2- last hba1c 13 in Medication noncompliance. Dehydration Diabetic neuropathy. HTN HLD Cigarete use PLAN rehydrate INsulin hba1c/lipids CHeck MRI brain PT consult; Pt may benefit from ARU eval. vitB12 and TSH SCD f/u MRI; d/c rehab when approved. Sukh Monroe MD, PhD.
--- NOTE | 2019-03-05 07:00 | NUR ---
RECEIVED AM REPORT FROM RN, MORNING ROUNDS DONE. PT IS ALERT, NO S/S OF DISTRESS. CALL LIGHT WITHIN REACH. IVF RUNNING AT 100/HR CHANGED IT TO ORDERED RATE OF 125ML/HR. IV SITE AT RIGHT FA IS ASYMPTOMATIC
--- NOTE | 2019-03-05 07:25 | NUR ---
BEDSIDE REPORT GIVEN TO THE ONCOMING NURSE
[2019-03-05 07:38] LABS: CHOL/HDL RATIO 2.8 (3.9-4.7)
[2019-03-05] MEDS: INSULIN LISPRO 100 UNIT/1 ML 3ML VIAL SQ SCH ×3 (09:04→16:32)
[2019-03-05] MEDS: LOSARTAN POTASSIUM 25 MG TAB PO SCH (09:04)
[2019-03-05] MEDS: INSULIN REGULAR, HUMAN 100 UNIT/1 ML 3ML VIAL SQ SCH ×3 (09:04→15:46)
[2019-03-05] MEDS: DOCUSATE SODIUM 100 MG CAP PO SCH ×2 (09:04→16:31)
[2019-03-05] MEDS: FAMOTIDINE 20 MG/2 ML VIAL IV SCH (09:04)
--- NOTE | 2019-03-05 11:02 | NUR ---
PT LEFT THE UNIT VIA WHEELCHAIR TO GO GET MRI. PT IN STABLE CONDITION
--- NOTE | 2019-03-05 11:55 | NUR ---
RECEIVED PT BACK FROM MRI, PT IS ALERT, NO S/S OF DISTRESS. NO COMPLAINTS AT THIS TIME
--- NOTE | 2019-03-05 12:24 | Diagnostic Imaging Report ---
MRI BRAIN WO HISTORY: Slurred speech COMPARISON: Head CT 03/04/2019 and 04/29/2018 TECHNIQUE: Sagittal T2, axial T2, axial T1, axial T2/FLAIR, axial gradient echo (or susceptibility weighted), coronal T2/FLAIR, and axial diffusion weighted MR images of the brain were obtained without contrast. Motion artifacts obscure some details. DISCUSSION: Scalp/bone marrow: Small nodular T1/T2/FLAIR hyperintense lesions in the right parietal calvarium loose signal on T2 fat-sat; these may be hemangiomas. Brain sulci: Appropriate for patient's age. Ventricles: Mild to moderate supratentorial ventriculomegaly is slightly out of proportion to sulcal prominence. Extra-axial spaces: No masses or fluid collections. Parenchyma: Focal diffusion restriction in the right paramedian sue (bright on DWI, dark on ADC) is compatible with an acute lacunar infarct. Associated old small lacunar infarct is seen in the left sue. Scattered T2/FLAIR hyperintense foci throughout the supratentorial white matter and sue are likely chronic microvascular ischemic changes. Otherwise, no mass, hemorrhage, or other acute vascular insults. Vessels: Normal flow voids in major arteries and veins. Sellar/Suprasellar region: No abnormalities. Craniocervical junction: Mild to moderate canal stenosis at C3-C4 is due to disc bulge and ligamentum flavum thickening. Focal T2 hyperintensity in the spinal cord at C3-C4 may be due to myelomalacia. Incidental findings: Both ocular lenses are thinned. IMPRESSION: 1. Small acute lacunar infarct in the right sue. 2. Unchanged mild to moderate supratentorial ventriculomegaly is slightly out of proportion to sulcal prominence. Correlate for communicating hydrocephalus (i.e. normal pressure hydrocephalus). 3. Otherwise, no acute intracranial abnormalities. 4. Mild supratentorial/pontine chronic microvascular ischemic change. 5. Old left pontine lacunar infarct. Signed by: Dr. Sohail Holly M.D. on 03/05/2019 12:21 PM
--- NOTE | 2019-03-05 12:32 | Diagnostic Imaging Report ---
MRA NECK WO, MRA HEAD WO HISTORY: Slurred speech COMPARISON: Concurrent MRI of the brain, cervical spine CT 07/27/2017 TECHNIQUE: Axial 2D cervical, and axial 3D intracranial [id number] MRA images were obtained without contrast. Maximum intensity projection images were created. If present, any cervical carotid stenosis will be measured as a percentage relative to the [place] artery distal to the stenosis. FINDINGS: CERVICAL MRA: Right Carotid: No flow abnormalities. Left Carotid: No flow abnormalities. Right vertebral artery: No flow abnormalities. Left vertebral artery: No flow abnormalities. INTRACRANIAL MRA: Carotid arteries: Bilateral carotid siphon calcifications are present without significant stenosis. No other flow abnormalities in the intracranial internal carotid arteries. Normal A1 and M1 segments. Vertebrobasilar Circulation: Right vertebral artery: No flow abnormalities. Left vertebral artery: No flow abnormalities. Basilar artery: No flow abnormalities. Posterior cerebral arteries: No flow abnormalities. Normal Variants: ACom: Visualized. PComs: Questionable patency on the left. Not visualized on the right Vertebral arteries: Co-dominant. IMPRESSION: 1. Bilateral carotid siphon calcifications without significant stenosis. 2. No other intracranial or cervical MRA abnormalities. Signed by: Dr. Sohail Holly M.D. on 03/05/2019 12:29 PM
--- NOTE | 2019-03-05 12:32 | Diagnostic Imaging Report ---
MRA NECK WO, MRA HEAD WO HISTORY: Slurred speech COMPARISON: Concurrent MRI of the brain, cervical spine CT 07/27/2017 TECHNIQUE: Axial 2D cervical, and axial 3D intracranial [id number] MRA images were obtained without contrast. Maximum intensity projection images were created. If present, any cervical carotid stenosis will be measured as a percentage relative to the [place] artery distal to the stenosis. FINDINGS: CERVICAL MRA: Right Carotid: No flow abnormalities. Left Carotid: No flow abnormalities. Right vertebral artery: No flow abnormalities. Left vertebral artery: No flow abnormalities. INTRACRANIAL MRA: Carotid arteries: Bilateral carotid siphon calcifications are present without significant stenosis. No other flow abnormalities in the intracranial internal carotid arteries. Normal A1 and M1 segments. Vertebrobasilar Circulation: Right vertebral artery: No flow abnormalities. Left vertebral artery: No flow abnormalities. Basilar artery: No flow abnormalities. Posterior cerebral arteries: No flow abnormalities. Normal Variants: ACom: Visualized. PComs: Questionable patency on the left. Not visualized on the right Vertebral arteries: Co-dominant. IMPRESSION: 1. Bilateral carotid siphon calcifications without significant stenosis. 2. No other intracranial or cervical MRA abnormalities. Signed by: Dr. Sohail Holly M.D. on 03/05/2019 12:29 PM
--- NOTE | 2019-03-05 13:47 | NUR ---
ORDERS FOR [facility] CHOICE LETTER SIGNED AND MOT INITIATED AND PLACED IN PACKET AT DESK NOTIFIED [place] WITH [facility] [phone] FAXED CLINICALS TO [phone] GAYTAN REHAB CONSULT PENDING HOPEFUL DC IN AM TO [facility]
--- NOTE | 2019-03-05 15:53 | NUR ---
MRI SHOWS ACUTE CVA DR GAYTAN HERE INPT ORDERS DR GAYTAN SPOKE WITH DR MOULTON [facility] THIS PM OR IN AM
[2019-03-05] MEDS: FAMOTIDINE 20 MG TAB PO SCH (16:31)
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
--- NOTE | 2019-03-05 19:28 | NUR ---
RECEIVED PT IN BED AOX3 .DENIES PAIN RESPIRATIONS ARE EVEN AND UNLABORED .REDNESS TO THE SACRUM . .CALL LIGHT WITH IN REACH .CONTINUE TO MONITOR
[2019-03-05] MEDS: INSULIN GLARGINE 100 UNITS/ML VIAL SQ SCH (21:00)
[2019-03-05] MEDS: PRAVASTATIN 20 MG TAB PO SCH (21:22)
[2019-03-06] VITALS: BP 143/85
[2019-03-06] MEDS: GABAPENTIN 400 MG CAP PO PRN (01:00)
[2019-03-06] MEDS: LACTATED RINGER'S 1,000 ML IV SCH ×2 (02:30→06:35)
[2019-03-06 04:00] VITALS: BP 167/87
[2019-03-06] MEDS: VENLAFAXINE HCL 37.5MG XR CAP PO SCH (06:09)
--- NOTE | 2019-03-06 07:00 | NUR ---
received am report from RN, morning rounds done. pt is alert lying in bed, no s/s of distress. call light within reach. no complaints at this time
--- NOTE | 2019-03-06 07:03 | NUR ---
PT RESTING .NO ACUTE DISTRESS NOTED .CALL LIGHT WITH IN REACH .BEDSIDE REPORT GIVEN TO THE ONCOMING NURSE.
[2019-03-06 07:47] VITALS: BP 147/76
[2019-03-06 08:00] VITALS: BP 147/76
[2019-03-06] MEDS: FAMOTIDINE 20 MG TAB PO SCH (08:07)
[2019-03-06] MEDS: DOCUSATE SODIUM 100 MG CAP PO SCH (08:07)
[2019-03-06] MEDS: LOSARTAN POTASSIUM 25 MG TAB PO SCH (08:07)
[2019-03-06] MEDS: INSULIN REGULAR, HUMAN 100 UNIT/1 ML 3ML VIAL SQ SCH (08:08)
[2019-03-06] MEDS: INSULIN LISPRO 100 UNIT/1 ML 3ML VIAL SQ SCH (08:08)
--- NOTE | 2019-03-06 10:58 | NUR ---
[facility] ACCE[facility] TO [facility] TO GO TO ROOM 3103, ADMIN RICCARDO LECHUGA, UNDER DR LUCILA ZAVALA, CALL REPORT TO [facility] [phone] [address] [facility]
--- NOTE | 2019-03-06 11:13 | NUR ---
called [facility] rehab and gave report to jason. pt will be admitted to room 3103.
[2019-03-06 12:00] VITALS: BP 149/85
--- NOTE | 2019-03-31 06:55 | NUR ---
D/c summary Principal dx: Malaise/fatigue due to hyperglycemia Severe Physical deconditioning Slurred speech Uncontrolled DM2- last hba1c 13 in Medication noncompliance. Secondary Dx: Dehydration Diabetic neuropathy. HTN HLD Cigarete use PLAN rehydrate INsulin hba1c/lipids CHeck MRI brain PT consult; Pt may benefit from ARU eval. vitB12 and TSH SCD f/u MRI; d/c rehab when approved. d/c to ARU stable f/u medical team at ORU d/c>35mins Sukh Monroe MD, PhD.
--- NOTE | 2019-03-31 06:56 | NUR ---
Addendum to D/C summary Principal dx: Acute lacunar infarct Malaise/fatigue due to hyperglycemia Severe Physical deconditioning Slurred speech Uncontrolled DM2- last hba1c 13 in Medication noncompliance. Secondary Dx: Dehydration Diabetic neuropathy. HTN HLD Cigarete use PLAN rehydrate INsulin hba1c/lipids CHeck MRI brain PT consult; Pt may benefit from CTU eval. vitB12 and TSH SCD f/u MRI; d/c rehab when approved. d/c to CTU stable f/u medical team at CTU d/c>35mins Sukh Monroe MD, PhD.
== END 2019-03-06 12:11 | DRG 65 ==
LOC: ER 13:31 → ERHOLD 15:10 → MED/SURG3 16:59 → OBSVTOIN 03-05 15:35
PROVIDERS: ADMIT Internal Medicine; ATTEND Internal Medicine
DX: I63.29 Cerebral infarction due to unspecified occlusion or stenosis of other precerebral arteries (principal); E44.0 Moderate protein-calorie malnutrition; Z68.1 Body mass index [BMI] 19.9 or less, adult; R42 Dizziness and giddiness; E86.0 Dehydration; I95.0 Idiopathic hypotension; I10 Essential (primary) hypertension; E11.65 Type 2 diabetes mellitus with hyperglycemia; R53.1 Weakness; Z89.432 Acquired absence of left foot; Z89.421 Acquired absence of other right toe(s); R26.0 Ataxic gait; E11.42 Type 2 diabetes mellitus with diabetic polyneuropathy; E11.51 Type 2 diabetes mellitus with diabetic peripheral angiopathy without gangrene; Z72.0 Tobacco use; Z91.14 Patient's other noncompliance with medication regimen; E78.5 Hyperlipidemia, unspecified; Z86.73 Personal history of transient ischemic attack (TIA), and cerebral infarction without residual deficits; Z79.4 Long term (current) use of insulin
CPT/HCPCS: 36415; 70450; 70544; 70547; 70551; 71045; 80048; 80053; 80061; 81001; 82550; 82553; 82948; 83036; 83735; 84100; 84484; 85025; 93005; 93306; 97139; 99284; G0378; J1815; J1817; J2405; J7030; J7121

== ENCOUNTER 2019-12-09 14:25 | Inpatient (IN) | payer MEDICARE, OTHER ==
[~2019-12-09] VITALS: Ht 177.8 cm; Wt 52.2 kg
--- OUTSIDE RECORDS SUMMARY | 2019-12-09 14:32 | XMS REPORT ---
Author [facility] Address Unknown Phone Unavailable Care Team Providers Care Rubber Flap Tuber Machine Operator Name Role Phone ARYAN TURCOIS MD PP SUKH MOULTON Unavailable Unavailable Kesha PHILLIPS Unavailable Unavailable Dirk MART Unavailable Unavailable Payers Payer Name Policy Type Policy Number Effective Date Expiration Date [employer] [id number] 2019 00:00:00 Medicare A & B [id number] 2012 00:00:00 [facility] [id number] 2018 00:00:00 [facility] [id number] 2016 00:00:00 Medicare A & B [id number] 2012 00:00:00 [facility] [id number] 2014 00:00:00 Medicare A & B [id number] 2012 00:00:00 Problems Condition Name Condition Details Condition Category Status Onset Date Resolution Date Last Treatment Date Treating Clinician Comments Abscess of buttock Abscess of buttock Problem Active 2016-05-08 00:00:00 Dehydration Dehydration Problem Active 2016-05-08 00:00:00 General patient noncompliance Non-compliance Problem Active 2016-05-08 00:00:00 Uncontrolled diabetes mellitus Uncontrolled diabetes mellitus Problem Active 2016-05-08 00:00:00 Renal insufficiency Renal insufficiency Problem Active 2016-05-08 00:00:00 Abscess of right foot Abscess of right foot Problem Active 2014-07-22 00:00:00 Cellulitis Cellulitis Problem Active Contusion of chest wall Contusion of chest wall Problem Active Diabetes mellitus Diabetes Problem Active Gangrene of left foot Gangrene of left foot Problem Active Hyperglycemia Hyperglycemia Problem Active Hypoglycemia Hypoglycemia Problem Active Acute osteomyelitis of left foot Osteomyelitis of foot, left, acute Problem Active Sprain of right thumb Sprain of right thumb Problem Active Hypotension Hypotension Problem Active Allergies, Adverse Reactions, Alerts Allergy Name Allergy Type Status Severity Reaction(s) Onset Date Inactive Date Treating Clinician Comments No Known Allergies DA Active U 2019-05-18 00:00:00 No Known Allergies DA Active U 2019-05-15 00:00:00 No Known Allergies DA Active U 2019-03-06 00:00:00 No Known Allergies DA Active U 2017-06-27 00:00:00 Medications Ordered Medication Name Filled Medication Name Start Date Stop Date Current Medication? Ordering Clinician Indication Dosage Frequency Signature (SIG) Comments Components Ondansetron (Zofran Odt) 4 Mg Tab.rapdis Ondansetron (Zofran Odt) 4 Mg Tab.rapdis 2018-04-30 00:00:00 Yes Sukh Moulton Md 4 Q4-6H Prn Pravastatin Sodium 40 Mg Tablet Pravastatin Sodium 40 Mg Tablet 2018-04-30 00:00:00 Yes Sukh Moulton Md 40 Bedtime Venlafaxine Hcl (Effexor Xr 37.5MG Capcr*) 37.5 Mg Capcr Venlafaxine Hcl (Effexor Xr 37.5MG Capcr*) 37.5 Mg Capcr 2018-04-30 00:00:00 Yes Sukh Moulton Md 37.5 Every 12 Hours Docusate Sodium (Colace) 100 Mg Capsule Docusate Sodium (Colace) 100 Mg Capsule 2017-07-16 00:00:00 Yes Sukh Moulton Md 100 Twice A Day Famotidine 20 Mg Tab Famotidine 20 Mg Tab 2017-07-16 00:00:00 Yes Sukh Moulton Md 20 Twice Daily Before Meals Insulin Detemir 100 Unit/Ml Pen Insulin Detemir 100 Unit/Ml Pen 2017-07-16 00:00:00 Yes Sukh Moulton Md 18 Bedtime Insulin Lispro 100 Unit/1 Ml Vial Insulin Lispro 100 Unit/1 Ml Vial 2017-07-16 00:00:00 Yes Sukh Moulton Md 5 Before Meals Ciprofloxacin Hcl (Cipro) 500 Mg Tablet, 500 Mg Oral Ciprofloxacin Hcl (Cipro) 500 Mg Tablet, 500 Mg Oral 2017-07-16 00:00:00 2017-09-10 00:00:00 No Sukh Moulton Md 500 Every 12 Hours Minocycline Hcl 50 Mg Capsule, 10 Mg Oral Minocycline Hcl 50 Mg Capsule, 10 Mg Oral 2017-07-16 00:00:00 2017-09-10 00:00:00 No Sukh Moulton Md 10 Twice A Day Nicotine (Nicoderm Cq) 1 Each Patch.td24, 7 Mg Topically Nicotine (Nicoderm Cq) 1 Each Patch.td24, 7 Mg Topically 2017-07-16 00:00:00 2017-09-10 00:00:00 No Sukh Moulton Md 7 Daily Sennosides (Senokot) 8.6 Mg Tablet, 8.6 Mg Oral Sennosides (Senokot) 8.6 Mg Tablet, 8.6 Mg Oral 2017-07-16 00:00:00 2017-09-10 00:00:00 Jennyfer Moulton Md 8.6 Daily Coz25 25 Mg Tab, 25 Mg Oral Coz25 25 Mg Tab, 25 Mg Oral 2014-07-29 00:00:00 2017-01-06 00:00:00 No Erick Bernard Np 25 Daily Collagenase Clostridium Hist. (Santyl) 15 Gm Oint...g., 0 Gm Topical Collagenase Clostridium Hist. (Santyl) 15 Gm Oint...g., 0 Gm Topical 2014-07-29 00:00:00 2014-10-21 00:00:00 No Erick Bernard Photographic Spotter 0 Daily Levofloxacin (Levaquin) 500 Mg Tablet, 750 Mg Oral Levofloxacin (Levaquin) 500 Mg Tablet, 750 Mg Oral 2014-07-29 00:00:00 2014-10-21 00:00:00 No Erick Bernard Photographic Spotter 750 Daily Nicotine (Nicoderm Cq) 1 Each Patch.td24, 14 Mg Topically Nicotine (Nicoderm Cq) 1 Each Patch.td24, 14 Mg Topically 2014-07-29 00:00:00 2014-10-21 00:00:00 No Erick Bernard Photographic Spotter 14 Daily Gabapentin 400 Mg Capsule Gabapentin 400 Mg Capsule Yes 300 Three Times A Day as needed for Pain Insulin Lispro (Humalog) 100 Unit/1 Ml Cartridge Insulin Lispro (Humalog) 100 Unit/1 Ml Cartridge Yes 7 Before Meals Losartan Potassium 25 Mg Tablet Losartan Potassium 25 Mg Tablet Yes 50 Daily Tramadol Hcl (Ultram) 50 Mg Tablet Tramadol Hcl (Ultram) 50 Mg Tablet Yes 50 As Needed as needed for Pain Insulin Glargine (Lantus 3ML Pen) 100 Units/1 Ml Inj, 40 Units Subcutaneously Insulin Glargine (Lantus 3ML Pen) 100 Units/1 Ml Inj, 40 Units Subcutaneously 2017 00:00:00 No 40 Daily Insulin Aspart (Novolog Mix 70-30 Vial) 100 Units/Ml Ml, 26 Units Subcutaneously Insulin Aspart (Novolog Mix 70-30 Vial) 100 Units/Ml Ml, 26 Units Subcutaneously 2017-07-16 00:00:00 No 26 Before Meals Lovastatin 40 Mg Tablet, 40 Mg Oral Lovastatin 40 Mg Tablet, 40 Mg Oral 2017-05-05 00:00:00 No 40 Daily Pantoprazole Sodium (Protonix) 40 Mg Tablet.dr, 40 Mg Oral Pantoprazole Sodium (Protonix) 40 Mg Tablet.dr, 40 Mg Oral 2017-05-05 00:00:00 No 40 Daily Paroxetine Hcl 20 Mg Tablet, 10 Mg Oral Paroxetine Hcl 20 Mg Tablet, 10 Mg Oral 2017-05-05 00:00:00 No 10 Daily Pregabalin (Lyrica) 75 Mg Cap, 75 Mg Oral Pregabalin (Lyrica) 75 Mg Cap, 75 Mg Oral 2017-05-05 00:00:00 No 75 Daily Tramadol Hcl (Ultram) 50 Mg Tablet, 50 Mg Oral Tramadol Hcl (Ultram) 50 Mg Tablet, 50 Mg Oral 2016-05-08 00:00:00 No 50 Three Times A Day as needed for Pain Nph, Human Insulin Isophane (Humulin N) 100 Unit/1 Ml Insuln.pen, 10 Unit Subcutaneously Nph, Human Insulin Isophane (Humulin N) 100 Unit/1 Ml Insuln.pen, 10 Unit Subcutaneously 2014-10-21 00:00:00 No 10 Before Meals Insulin Glargine,Hum.rec.anlog (Lantus) 100 Unit/1 Ml Cartridge, 50 Units Subcutaneously Insulin Glargine,Hum.rec.anlog (Lantus) 100 Unit/1 Ml Cartridge, 50 Units Subcutaneously 2014-07-29 00:00:00 No 50 Bedtime Losartan Potassium (Cozaar) 50 Mg Tab, 10 Mg Oral Losartan Potassium (Cozaar) 50 Mg Tab, 10 Mg Oral 2014-07-29 00:00:00 No 10 Once Procedures and Interventions Procedure Date / Time Performed Performing Clinician Magnetic resonance imaging of brain without contrast 2019-03-05 00:00:00 SUKH MOULTON Magnetic resonance angiography of head without contrast 2019-03-05 00:00:00 SUKH MOULTON Magnetic resonance angiography of neck without contrast 2019-03-05 00:00:00 SUKH MOULTON Computed tomography of brain without radiopaque contrast 2019-03-04 00:00:00 KALEB SHELBY Computed tomography of abdomen and pelvis with contrast 2018-07-30 00:00:00 TONIO PHILLIPS X-ray of chest, two views 2018-07-30 00:00:00 TONIO PHILLIPS Encounters Start Date/Time End Date/Time Encounter Type Admission Type Attending Clinicians Care Facility Care Department Encounter ID 2019-03-05 15:35:00 2019-03-06 12:11:00 Discharged Inpatient 1 SUKH MOULTON [facility] [id number] 2018-07-30 17:43:00 2018-07-30 23:27:00 Departed Emergency Room 1 TONIO PHILLIPS [facility] [id number] 2018-04-29 13:35:00 2018-04-30 15:23:00 Discharged Inpatient (obs) 1 SUKH MOULTON [facility] [id number] 2017-09-10 22:18:00 2017-09-15 15:38:00 Discharged Inpatient ER SUKH MOULTON [facility] [id number] 2017-07-27 04:32:00 2017 14:20:00 Discharged Inpatient (obs) ER TONIO PHILLIPS [facility] [id number] 2017-07-14 00:24:00 2017-07-16 10:28:00 Discharged Inpatient ER ARA MART [facility] [id number] Results Test Description Test Time Test Comments Text Results Atomic Results Result Comments GLUBED 2019-11-28 16:54:00 GLUBED (test code=GLUBED) 84 mg/dL 74-106 Performed by certified stamping press operator at [facility] [id number] 15:35:00* Test Item Value Reference Range Comments GLUBED (test code=GLUBED) 56 mg/dL 74-106 Performed by certified stamping press operator at [facility] [id number] 13:48:00* Test Item Value Reference Range Comments TROPONIN-I (test code=TROPI) <0.015 ng/mL 0-0.045 [id number] 11:48:00* Test Item Value Reference Range Comments GLUBED (test code=GLUBED) 280 mg/dL 74-106 Performed by certified stamping press operator at [facility] [id number] 07:53:00* Test Item Value Reference Range Comments GLUBED (test code=GLUBED) 262 mg/dL 74-106 Performed by certified stamping press operator at [facility] COMPREHENSIVE METABOLIC [id number] 04:58:00* Test Item Value Reference Range Comments SODIUM (test code=NA) 137 mmol/L 136-145 POTASSIUM (test code=K) 3.8 mmol/L 3.5-5.1 CHLORIDE (test code=CL) 104.0 mmol/L 98-107 CARBON DIOXIDE (test code=CO2) 27.0 mmol/L 21-32 ANION GAP (test code=GAP) 9.8 10-20 GLUCOSE (test code=GLU) 275 mg/dL 74-106 BLOOD UREA NITROGEN (test code=BUN) 14 mg/dL 7-18 GLOMERULAR FILTRATION RATE (test code=GFR) > 60 mL/min >=60 Estimated GFR by using Modified MDRD formula.Chronic kidney disease is defined as either kidney damageor GFR <60 mL/min/1.73 m2 for >3 months. CREATININE (test code=CREAT) 0.70 mg/dL 0.7-1.3 BUN/CREATININE RATIO (test code=BUN/CREA) 20.0 10-20 TOTAL PROTEIN (test code=PROT) 7.0 gram/dL 6.4-8.2 ALBUMIN (test code=ALB) 2.9 g/dL 3.4-5.0 GLOBULIN (test code=GLOB) 4.1 gram/dL 2.7-4.2 ALBUMIN/GLOBULIN RATIO (test code=A/G) 0.7 0.75-1.50 CALCIUM (test code=CA) 8.9 mg/dL 8.5-10.1 BILIRUBIN TOTAL (test code=BILT) 0.20 mg/dL 0.0-1.0 SGOT/AST (test code=AST) 13 IUnit/L 15-37 SGPT/ALT (test code=ALT) 24 IUnit/L 12-78 ALKALINE PHOSPHATASE TOTAL (test code=ALKP) 106 IUnit/L 45-117 Note change in reference range due to change in reagent. THYROID STIMULATING [id number] 04:58:00* Test Item Value Reference Range Comments THYROID STIMULATING HORMONE (test code=TSH) 2.210 uIU/mL 0.36-3.74 TSH REFERENCE RANGES: EUTHYROID: 0.35 - 4.3 mIU/mL HYPO : > 5.5 mIU/mL HYPER : < 0.35 mIU/mL COMPREHENSIVE METABOLIC [id number] 04:39:00* Test Item Value Reference Range Comments SODIUM (test code=NA) 137 mmol/L 136-145 POTASSIUM (test code=K) 3.8 mmol/L 3.5-5.1 CHLORIDE (test code=CL) 104.0 mmol/L 98-107 CARBON DIOXIDE (test code=CO2) mmol/L 21-32 ANION GAP (test code=GAP) 10-20 GLUCOSE (test code=GLU) mg/dL 74-106 BLOOD UREA NITROGEN (test code=BUN) mg/dL 7-18 GLOMERULAR FILTRATION RATE (test code=GFR) mL/min >=60 CREATININE (test code=CREAT) mg/dL 0.7-1.3 BUN/CREATININE RATIO (test code=BUN/CREA) 10-20 TOTAL PROTEIN (test code=PROT) gram/dL 6.4-8.2 ALBUMIN (test code=ALB) g/dL 3.4-5.0 GLOBULIN (test code=GLOB) gram/dL 2.7-4.2 ALBUMIN/GLOBULIN RATIO (test code=A/G) 0.75-1.50 CALCIUM (test code=CA) mg/dL 8.5-10.1 BILIRUBIN TOTAL (test code=BILT) mg/dL 0.0-1.0 SGOT/AST (test code=AST) IUnit/L 15-37 SGPT/ALT (test code=ALT) IUnit/L 12-78 ALKALINE PHOSPHATASE TOTAL (test code=ALKP) IUnit/L 45-117 THYROID STIMULATING [id number] 04:39:00* Test Item Value Reference Range Comments THYROID STIMULATING HORMONE (test code=TSH) uIU/mL 0.36-3.74 [id number] 04:32:00* Test Item Value Reference Range Comments GLYCOSYLATED HEMOGLOBIN (HA1C) (test code=GLYHGB) 11.4 % HbA1 SUGGESTED DIAGNOSIS: HbA1C (%) Diabetic >6.4Prediabetes 5.7 - 6.4Normal <5.7 ESTIMATED AVERAGE GLUCOSE (test code=EAG) 280 MG/DL CBC W/AUTO [id number] 04:08:00* Test Item Value Reference Range Comments WHITE BLOOD CELL (test code=WBC) 6.6 K/mm3 4.5-12.5 RED BLOOD CELL (test code=RBC) 4.05 mill/mm3 4.0-5.8 HEMOGLOBIN (test code=HGB) 11.7 gram/dL 13.0-17.5 HEMATOCRIT (test code=HCT) 34.7 % 42.0-52.0 MEAN CELL VOLUME (test code=MCV) 85.7 fL 80-98 MEAN CELL HGB (test code=MCH) 28.9 picogram 27.0-33.0 MEAN CELL HGB CONCETRATION (test code=MCHC) 33.7 gram/dL 33.0-36.0 RED CELL DISTRIBUTION WIDTH (test code=RDW) 13.3 % 11.6-16.2 RED CELL DISTRIBUTION WIDTH SD (test code=RDW-SD) 41.4 fL 37.0-51.0 PLATELET COUNT (test code=PLT) 288 K/mm3 150-450 MEAN PLATELET VOLUME (test code=MPV) 10.4 fL 6.7-11.0 NEUTROPHIL % (test code=NT%) 68.9 % 39.0-69.0 IMMATURE GRANULOCYTE % (test code=IG%) 0.2 % 0.0-5.0 LYMPHOCYTE % (test code=LY%) 17.9 % 25.0-55.0 MONOCYTE % (test code=MO%) 8.6 % 0.0-10.0 EOSINOPHIL % (test code=EO%) 3.5 % 0.0-5.0 BASOPHIL % (test code=BA%) 0.9 % 0.0-1.0 NUCLEATED RBC % (test code=NRBC%) 0.0 % 0-0 NEUTROPHIL # (test code=NT#) 4.57 K/mm3 1.8-7.7 IMMATURE GRANULOCYTE # (test code=IG#) 0.01 x10 3/uL 0-0.03 LYMPHOCYTE # (test code=LY#) 1.19 K/mm3 1.0-5.0 MONOCYTE # (test code=MO#) 0.57 K/mm3 0-0.8 EOSINOPHIL # (test code=EO#) 0.23 K/mm3 0.0-0.5 BASOPHIL # (test code=BA#) 0.06 K/mm3 0.0-0.2 NUCLEATED RBC # (test code=NRBC#) 0.00 K/mm3 0.0-0.1 MANUAL DIFF REQUIRED (test code=MDIFF) NO [id number] 20:24:00* Test Item Value Reference Range Comments GLUBED (test code=GLUBED) 180 mg/dL 74-106 [facility] certified stamping press [facility]~ T4 [id number] 17:44:00* Test Item Value Reference Range Comments T4 FREE (test code=T4F) 1.38 ng/dL 0.76-1.46 THYROID STIMULATING [id number] 17:44:00* Test Item Value Reference Range Comments THYROID STIMULATING HORMONE (test code=TSH) 1.830 uIU/mL 0.36-3.74 TSH REFERENCE RANGES: EUTHYROID: 0.35 - 4.3 mIU/mL HYPO : > 5.5 mIU/mL HYPER : < 0.35 mIU/mL [id number] 17:43:00* Test Item Value Reference Range Comments GLYCOSYLATED HEMOGLOBIN (HA1C) (test code=GLYHGB) 11.6 % HbA1 SUGGESTED DIAGNOSIS: HbA1C (%) Diabetic >6.4Prediabetes 5.7 - 6.4Normal <5.7 ESTIMATED AVERAGE GLUCOSE (test code=EAG) 286 MG/DL [id number] 16:09:00* Test Item Value Reference Range Comments GLUBED (test code=GLUBED) 318 mg/dL 74-106 Performed by certified stamping press operator at [facility] [id number] 12:33:00* Test Item Value Reference Range Comments GLUBED (test code=GLUBED) 393 mg/dL 74-106 Performed by certified stamping press operator at [facility] [id number] 08:57:00* Test Item Value Reference Range Comments GLUBED (test code=GLUBED) 376 mg/dL 74-106 Performed by certified stamping press operator at [facility] [id number] 08:22:00* Test Item Value Reference Range Comments TROPONIN-I (test code=TROPI) 0.036 ng/mL 0-0.045 COMMENTS TO BOW REHAIRER: COLLECT 3 HOURS AFTER PREVIOUS [id number] 05:32:00* Test Item Value Reference Range Comments TROPONIN-I (test code=TROPI) 0.032 ng/mL 0-0.045 COMMENTS TO BOW REHAIRER: COLLECT 3 HOURS AFTER PREVIOUS [id number] 00:13:00* Test Item Value Reference Range Comments GLUBED (test code=GLUBED) 331 mg/dL 74-106 Performed by certified stamping press operator at [facility] URINALYSIS [id number] 22:40:00* Test Item Value Reference Range Comments UA COLOR (test code=COLU) Light-Yellow YELLOW UA APPEARANCE (test code=APPU) CLEAR CLEAR UA GLUCOSE DIPSTICK (test code=DGLUU) >1000 (4+) mg/dL NEGATIVE UA BILIRUBIN DIPSTICK (test code=BILU) NEGATIVE mg/dL NEGATIVE UA KETONE DIPSTICK (test code=KETU) NEGATIVE mg/dL NEGATIVE UA SPECIFIC GRAVITY (test code=SGU) 1.030 1.001-1.035 UA BLOOD DIPSTICK (test code=VALERIA) Negative mg/dL NEGATIVE UA PH DIPSTICK (test code=LINDSAY) 6.5 5.0-8.0 UA PROTEIN DIPSTICK (test code=PROU) NEGATIVE mg/dL NEGATIVE UA UROBILINIOGEN DIPSTICK (test code=URO) Normal mg/dL NEGATIVE UA NITRITE DIPSTICK (test code=YONG) NEGATIVE NEGATIVE UA LEUKOCYTE ESTERASE W REFLEX (test code=LEUUR) NEGATIVE Sophia/uL NEGATIVE UA WBC (test code=WBCU) 0-5 per HPF 0-5 UA RBC (test code=RBCU) 0-2 #/HPF 0-5 UA EPITHELIAL CELLS (test code=EPIU) None seen per HPF FEW UA BACTERIA (test code=BACU) NONE SEEN #/HPF NONE Urine Source? Clean CatchBASIC METABOLIC [id number] 21:35:00* Test Item Value Reference Range Comments SODIUM (test code=NA) 136 mmol/L 136-145 POTASSIUM (test code=K) 4.0 mmol/L 3.5-5.1 CHLORIDE (test code=CL) 101.0 mmol/L 98-107 CARBON DIOXIDE (test code=CO2) 29.0 mmol/L 21-32 ANION GAP (test code=GAP) 10.0 10-20 GLUCOSE (test code=GLU) 426 mg/dL 74-106 BLOOD UREA NITROGEN (test code=BUN) 12 mg/dL 7-18 GLOMERULAR FILTRATION RATE (test code=GFR) > 60 mL/min >=60 Estimated GFR by using Modified MDRD formula.Chronic kidney disease is defined as either kidney damageor GFR <60 mL/min/1.73 m2 for >3 months. CREATININE (test code=CREAT) 0.90 mg/dL 0.7-1.3 BUN/CREATININE RATIO (test code=BUN/CREA) 13.3 10-20 CALCIUM (test code=CA) 9.3 mg/dL 8.5-10.1 HEPATIC FUNCTION [id number] 21:35:00* Test Item Value Reference Range Comments TOTAL PROTEIN (test code=PROT) 8.1 gram/dL 6.4-8.2 ALBUMIN (test code=ALB) 3.3 g/dL 3.4-5.0 GLOBULIN (test code=GLOB) 4.8 gram/dL 2.7-4.2 ALBUMIN/GLOBULIN RATIO (test code=A/G) 0.7 0.75-1.50 BILIRUBIN TOTAL (test code=BILT) 0.40 mg/dL 0.0-1.0 BILIRUBIN DIRECT (test code=BILD) 0.14 mg/dL 0.0-0.20 SGOT/AST (test code=AST) 14 IUnit/L 15-37 SGPT/ALT (test code=ALT) 29 IUnit/L 12-78 ALKALINE PHOSPHATASE TOTAL (test code=ALKP) 119 IUnit/L 45-117 Note change in reference range due to change in reagent. [id number] 21:35:00* Test Item Value Reference Range Comments LIPASE (test code=LIP) 54 U/L 73.0-393.0 [id number] 21:35:00* Test Item Value Reference Range Comments MAGNESIUM (test code=MAG) 1.8 mg/dL 1.8-2.4 [id number] 21:35:00* Test Item Value Reference Range Comments TROPONIN-I (test code=TROPI) 0.045 ng/mL 0-0.045 - CT C-SPINE W/O [id number] 21:33:00 Name: EARLE JUNE [facility] : 1960 Age/S: 59 / M [address] [facility] Unit #: [id number] Loc: [place], [place] [address] Phys: Caro Estrada MD Acct: [id number] Dis Date: Status: REG ER PHONE #: [phone] Exam Date: 11/26/20192120 FAX #: [phone] Reason: fall EXAMS: CPT CODE: [id number] CT C-SPINE W/O CONTRAST 82591 HISTORY: fall TECHNIQUE: Noncontrast 2.[address] of the head and cervical spine. Examination acquired within 24 hours of arrival. Automated exposure control for dose reduction. COMPARISON: CT scan of the brain and cervical spine August 30, 2019 FINDINGS: There is focal scalp swelling overlying the frontal bone (4/52). Multiple metallic fragments of the scalp are unchanged from the prior exam. Calvarium and skull base are intact. No acute hemorrhage. No intracranial mass, mass effect, or midline shift. No effacement of the sulci or abraham-white matter interface. Diffuse cortical atrophy with ventriculomegaly and microvascular ischemic changes of the white matter appear similar to the prior exam. Visualized paranasal sinuses are clear. Mastoid air cells and middle ear cavities are clear. Orbital contents are unremarkable. No acute fracture of the cervical spine. No subluxation. Craniocervical and cervicothoracic articulations are appropriate. There is height loss of the vertebral bodies throughout the cervical spine. There is also severe disc degeneration at C3-C4. Small vertebral body osteophytes are seen throughout the cervical spine. Severe bilateral foraminal narrowing and moderate central canal narrowing is present at C3-C4. Severe left-sided foraminal narrowing and mild to moderate right-sided renal narrowing is present at C4-C5. Mild bilateral foraminal narrowing is present at C5-C6. Moderate right-sided foraminal narrowing is present at C 6-C7. The foramen are widely patent. C7-T1. No prevertebral or paraspinal soft tissue abnormality. Paraseptal and centrilobular emphy sematous changes are seen visualized upper lobes. There is a metalli c fragment in the posterior paraspinal soft tissues at the level of T10 IMPRESSION: PAGE 1 Signed Report (CONTINUED) Name: EARLE JUNE [facility] : 1960 Age/S: 59 / M [address] [facility] Unit #: [id number] Loc: [place] [address] Phys: Caro Estrada MD Acct: [id number] Dis Date: Status: REG ER PHONE #: [phone] Exam Date: 11/26/20192120 FAX #: [phone] Reason: fall EXAMS: CPT CODE: [id number] CT C-SPINE W/O CONTRAST 13020 < Continued> Soft tissue swelling of the scalp but no underlying skull fracture or evidence of acute intracranial injury. Chronic atrophic and microvascular ischemic changes of the brain parenchyma appears similar to the prior exam. Degenerative changes of the cervical spine results and multilevel foraminal and central canal narrowing. However no fracture or malalignment is seen. Location: [facility] at 2133 Reported and signed by: Juan Diego Kemp MD CC: Caro Estrada MD Technologist:ARMOND CÁRDENAS RT(R) CT CTDI: DLP: Trnscb Date/Time: 11/26/2019 (2132) [email or web address] Orig Print D/T: S: 11/26/2019 (2135) PAGE 2 Signed Report - CT HEAD/BRAIN W/O [id number] 21:33:00 Name: EARLE JUNE [facility] : 1960 Age/S: 59 / M [address] [facility] Unit #: [id number] Loc: [place] [address] Phys: Caro Estrada MD Acct: [id number] Dis Date: Status: REG ER PHONE #: [phone] Exam Date: 11/26/20192120 FAX #: [phone] Reason: fall EXAMS: CPT CODE: [id number] CT HEAD/BRAIN W/O CONT 26175 HISTORY: fall TECHNIQUE: Noncontrast 2.[address] of the head and cervical spine. Examination acquired within 24 hours of arrival. Automated exposure control for dose reduction. COMPARISON: CT scan of the brain and cervical spine August 30, 2019 FINDINGS: There is focal scalp swelling overlying the frontal bone (). Multiple metallic fragments of the scalp are unchanged from the prior exam. Calvarium and skull base are intact. No acute hemorrhage. No intracranial mass, mass effect, or midline shift. No effacement of the sulci or abraham-white matter interface. Diffuse cortical atrophy with ventriculomegaly and microvascular ischemic changes of the white matter appear similar to the prior exam. Visualized paranasal sinuses are clear. Mastoid air cells and middle ear cavities are clear. Orbital contents are unremarkable. No acute fracture of the cervical spine. No subluxation. Cr aniocervical and cervicothoracic articulations are appropriate. T here is height loss of the vertebral bodies throughout the cervical spine. There is also severe disc degeneration at C3-C4. Small vertebral body ost eophytes are seen throughout the cervical spine. Severe bilateral foramina l narrowing and moderate central canal narrowing is present at C3-C4. Severe left-sided foraminal narrowing and mild to moderate right-sided r enal narrowing is present at C4-C5. Mild bilateral foraminal narrowing is present at C5-C6. Moderate right-sided foraminal narrowing is present at C 6-C7. The foramen are widely patent. C7-T1. No prevertebral or paraspinal soft tissue abnormality. Paraseptal and centrilobular emphy sematous changes are seen visualized upper lobes. There is a metalli c fragment in the posterior paraspinal soft tissues at the level of T10 IMPRESSION: PAGE 1 Signed Report (CONTINUED) Name: EARLE JUNE [facility] : 1960 Age/S: 59 / M [address] [facility] Unit #: [id number] Loc: [place] [address] Phys: Caro Estrada MD Acct: [id number] Dis Date: Status: REG ER PHONE #: [phone] Exam Date: 11/26/20192120 FAX #: [phone] Reason: fall EXAMS: CPT CODE: [id number] CT HEAD/BRAIN W/O CONT 42190 < Continued> Soft tissue swelling of the scalp but no underlying skull fracture or evidence of acute intracranial injury. Chronic atrophic and microvascular ischemic changes of the brain parenchyma appears similar to the prior exam. Degenerative changes of the cervical spine results and multilevel foraminal and central canal narrowing. However no fracture or malalignment is seen. Location: [facility] at 2133 Reported and signed by: Juan Diego Kemp MD CC: Caro Estrada MD Technologist:ARMOND CÁRDENAS, RT(R) CT CTDI: DLP: Trnscb Date/Time: 11/26/2019 (2132) [email or web address] Orig Print D/T: S: 11/26/2019 (2135) PAGE 2 Signed Report BASIC METABOLIC [id number] 21:22:00* Test Item Value Reference Range Comments SODIUM (test code=NA) 136 mmol/L 136-145 POTASSIUM (test code=K) 4.0 mmol/L 3.5-5.1 CHLORIDE (test code=CL) 101.0 mmol/L 98-107 CARBON DIOXIDE (test code=CO2) mmol/L 21-32 ANION GAP (test code=GAP) 10-20 GLUCOSE (test code=GLU) mg/dL 74-106 BLOOD UREA NITROGEN (test code=BUN) mg/dL 7-18 GLOMERULAR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 Test Item Value Reference Range Comments GLUBED (test code=GLUBED) 98 mg/dL 74-106 Performed by certified stamping press operator at [facility] [id number] 16:07:00* Test Item Value Reference Range Comments GLUBED (test code=GLUBED) 332 mg/dL 74-106 Performed by certified stamping press operator [facility]~ [id number] 16:07:00* Test Item Value Reference Range Comments GLUBED (test code=GLUBED) 348 mg/dL 74-106 Performed by certified stamping press operator [facility] [id number] 11:30:00* Test Item Value Reference Range Comments GLUBED (test code=GLUBED) 170 mg/dL 74-106 Performed by certified stamping press operator [facility]~ [id number] 07:20:00* Test Item Value Reference Range Comments GLUBED (test code=GLUBED) 251 mg/dL 74-106 Performed by certified stamping press operator [facility]~ [id number] 20:26:00* Test Item Value Reference Range Comments GLUBED (test code=GLUBED) 249 mg/dL 74-106 Performed by certified stamping press operator at [facility] [id number] 16:15:00* Test Item Value Reference Range Comments GLUBED (test code=GLUBED) 129 mg/dL 74-106 Performed by certified stamping press operator at [facility] [id number] 11:09:00* Test Item Value Reference Range Comments GLUBED (test code=GLUBED) 252 mg/dL 74-106 Performed by certified stamping press operator at [facility] BLOOD UREA [id number] 07:32:00* Test Item Value Reference Range Comments BLOOD UREA NITROGEN (test code=BUN) 14 mg/dL 7-18 [id number] 07:32:00* Test Item Value Reference Range Comments CREATININE (test code=CREAT) 0.60 mg/dL 0.7-1.3 [id number] 07:12:00* Test Item Value Reference Range Comments GLUBED (test code=GLUBED) 124 mg/dL 74-106 Performed by certified stamping press operator at [facility] CBC W/AUTO [id number] 06:58:00* Test Item Value Reference Range Comments WHITE BLOOD CELL (test code=WBC) 11.4 K/mm3 4.5-12.5 RED BLOOD CELL (test code=RBC) 3.94 mill/mm3 4.0-5.8 HEMOGLOBIN (test code=HGB) 11.6 gram/dL 13.0-17.5 HEMATOCRIT (test code=HCT) 35.2 % 42.0-52.0 MEAN CELL VOLUME (test code=MCV) 89.3 fL 80-98 MEAN CELL HGB (test code=MCH) 29.4 picogram 27.0-33.0 MEAN CELL HGB CONCETRATION (test code=MCHC) 33.0 gram/dL 33.0-36.0 RED CELL DISTRIBUTION WIDTH (test code=RDW) 12.6 % 11.6-16.2 RED CELL DISTRIBUTION WIDTH SD (test code=RDW-SD) 41.4 fL 37.0-51.0 PLATELET COUNT (test code=PLT) 247 K/mm3 150-450 MEAN PLATELET VOLUME (test code=MPV) 10.5 fL 6.7-11.0 NEUTROPHIL % (test code=NT%) 73.6 % 39.0-69.0 IMMATURE GRANULOCYTE % (test code=IG%) 0.4 % 0.0-5.0 LYMPHOCYTE % (test code=LY%) 13.4 % 25.0-55.0 MONOCYTE % (test code=MO%) 9.6 % 0.0-10.0 EOSINOPHIL % (test code=EO%) 2.2 % 0.0-5.0 BASOPHIL % (test code=BA%) 0.8 % 0.0-1.0 NUCLEATED RBC % (test code=NRBC%) 0.0 % 0-0 NEUTROPHIL # (test code=NT#) 8.40 K/mm3 1.8-7.7 IMMATURE GRANULOCYTE # (test code=IG#) 0.04 x10 3/uL 0-0.03 LYMPHOCYTE # (test code=LY#) 1.53 K/mm3 1.0-5.0 MONOCYTE # (test code=MO#) 1.09 K/mm3 0-0.8 EOSINOPHIL # (test code=EO#) 0.25 K/mm3 0.0-0.5 BASOPHIL # (test code=BA#) 0.09 K/mm3 0.0-0.2 NUCLEATED RBC # (test code=NRBC#) 0.00 K/mm3 0.0-0.1 [id number] 20:15:00* Test Item Value Reference Range Comments GLUBED (test code=GLUBED) 210 mg/dL 74-106 Performed by certified stamping press operator at [facility] [id number] 16:29:00* Test Item Value Reference Range Comments GLUBED (test code=GLUBED) 171 mg/dL 74-106 Performed by certified stamping press operator at [facility] [id number] 11:29:00* Test Item Value Reference Range Comments GLUBED (test code=GLUBED) 82 mg/dL 74-106 Performed by certified stamping press operator at [facility] [id number] 07:06:00* Test Item Value Reference Range Comments ALCIDES (test code=GLUBED) 175 mg/dL 74-106 Performed by certified stamping press operator at [facility] - CT ABD PELVIS W WO [id number] 21:16:00 Name: EARLE JUNE [facility] : 1960 Age/S: 58 / M [address] [facility] Unit #: [id number] Loc: SEFER[place] Fernandez [address] Phys: Kenneth Barboza DO Acct: [id number] Dis Date: Status: ADM IN PHONE #: [phone] Exam Date: 03/16/20192103 FAX #: [phone] Reason: gluteal swelling EXAMS: CPT CODE: [id number] CT ABD PELVIS W WO CONT 20430 REASON FOR EXAM: gluteal swelling EXAM ORDER DATE: 03/16/2019 11:12 AM Ordering Meka: Kenneth Barboza DO PROCEDURE: - CT ABD PELVIS W WO CONT COMPARISON: FINDINGS: CT images of the abdomen and pelvis were obtained 1st without and follow with IV and without oral contrast at 5mm. Dose modulation, iterative reconstruction, and/or weight based adjustment of the MA/KV was utilized to reduce the radiation dose to as low as reasonably achievable. Intravenous contrast: 100cc of Omnipaque 370. The liver, spleen, pancreas are grossly within normal limits. The gallbladder is contracted The kidneys are within normal limits. The urinary bladder is mildly distended The colon, small bowel, and stomach are within normal limits without evidence of obstruction. The appendix was not seen. Large amount of stool in the colon suggestive of constipation. Subcutaneous skin thickening suggestive of cellulitis with a 3 cm hypodense fluid collection suggestive of possible access in the left inferior lateral gluteal region No evidence of free air or free fluid. The uterus is unremarkable. IMPRESSION: 3 cm left inferior lateral gluteal abscess at 2116 Reported and signed by: Lauro Lanier M.D. PAGE 1 Signed Report (CONTINUED) Name: EARLE JUNE [facility] : 1960 Age/S: 58 / M [address] [facility] Unit #: [id number] Loc: SEFERINO Fernandez [address] Phys: Melly BarbozaRiegelwood Varun Lobato DO Acct: [id number] Dis Date: Status: ADM IN PHONE #: [phone] Exam Date: 0 03/16/20192103 FAX #: [phone] Reason: gluteal swe lling EXAMS: CPT CODE: [id number] CT ABD PELVIS W WO CONT 33681 <Continued> CC: Kenneth Barboza DO; Aryan Turcois MD Technologist:Unique William RT(R); ARMOND Lucas CTDI: DLP: Trnscb Date/Time: 03/16/2019 (2115) [email or web address] Orig Print D/T: S: 03/16/2019 (2118) PAGE 2 Signed Report [id number] 19:52:00* Test Item Value Reference Range Comments GLUBED (test code=GLUBED) 170 mg/dL 74-106 Performed by certified stamping press operator at [facility] [id number] 16:32:00* Test Item Value Reference Range Comments GLUBED (test code=GLUBED) 179 mg/dL 74-106 Performed by certified stamping press operator at [facility] [id number] 11:19:00* Test Item Value Reference Range Comments GLUBED (test code=GLUBED) 221 mg/dL 74-106 Performed by certified stamping press operator at [facility] [id number] 07:23:00* Test Item Value Reference Range Comments GLUBED (test code=GLUBED) 127 mg/dL 74-106 Performed by certified stamping press operator at [facility] - CT HEAD/BRAIN W/O [id number] 21:47:00 Name: EARLE JUNE [facility] : 1960 Age/S: 58 / M [address] Unit #: [id number] Loc: SEFER[place] Fernandez [address] Phys: Jayde Scherer MD Acct: [id number] Dis Date: Status: ADM IN PHONE #: [phone] Exam Date: 03/15/20192131 FAX #: [phone] Reason: INCREASED WEAKNESS EXAMS: CPT CODE: [id number] CT HEAD/BRAIN W/O CONT 37266 REASON FOR EXAM: INCREASED WEAKNESS EXAM ORDER DATE: 03/15/2019 6:38 PM Ordering Quin.: Jayde Scherer MD PROCEDURE: - CT HEAD/BRAIN W/O CONT COMPARISON: FINDINGS: CT images of the brain were obtained without IV contrast. Dose modulation, iterative reconstruction, and/or weight based adjustment of the MA/KV was utilized to reduce the radiation dose to as low as reasonably achievable. The brain parenchyma is within normal limits. The niño-white matter delineation is unremarkable. The ventricles, cisterns, and sulci are minimally prominent. There is no evidence of hemorrhage, mass, mass effect. There is no evidence of acute or old infarct. The calvarium is intact. Examination is limited due to beam hardening artifact from metallic fragments IMPRESSION: Unremarkable brain. at 214 Reported and signed by: Lauro Lanier M.D. CC: Jayde Scherer MD; Kenneth Barboza DO; Aryan Turcios MD Technologist:Unique WALKER(R); ARMOND Lucas CTDI: DLP: Trnscb Date/Time: 03/15/2019 (2146) [email or web address] Orig Print D/T: S: 03/15/2019 (2149) PAGE 1 Signed Report [id number] 21:13:00* Test Item Value Reference Range Comments GLUBED (test code=GLUBED) 116 mg/dL 74-106 Performed by certified stamping press operator at [facility] CBC W/AUTO [id number] 19:53:00* Test Item Value Reference Range Comments WHITE BLOOD CELL (test code=WBC) 13.0 K/mm3 4.5-12.5 RED BLOOD CELL (test code=RBC) 4.39 mill/mm3 4.0-5.8 HEMOGLOBIN (test code=HGB) 12.9 gram/dL 13.0-17.5 HEMATOCRIT (test code=HCT) 39.1 % 42.0-52.0 MEAN CELL VOLUME (test code=MCV) 89.1 fL 80-98 MEAN CELL HGB (test code=MCH) 29.4 picogram 27.0-33.0 MEAN CELL HGB CONCETRATION (test code=MCHC) 33.0 gram/dL 33.0-36.0 RED CELL DISTRIBUTION WIDTH (test code=RDW) 12.8 % 11.6-16.2 RED CELL DISTRIBUTION WIDTH SD (test code=RDW-SD) 42.0 fL 37.0-51.0 PLATELET COUNT (test code=PLT) 257 K/mm3 150-450 MEAN PLATELET VOLUME (test code=MPV) 10.5 fL 6.7-11.0 NEUTROPHIL % (test code=NT%) 72.6 % 39.0-69.0 IMMATURE GRANULOCYTE % (test code=IG%) 0.5 % 0.0-5.0 LYMPHOCYTE % (test code=LY%) 14.3 % 25.0-55.0 MONOCYTE % (test code=MO%) 10.0 % 0.0-10.0 EOSINOPHIL % (test code=EO%) 2.0 % 0.0-5.0 BASOPHIL % (test code=BA%) 0.6 % 0.0-1.0 NUCLEATED RBC % (test code=NRBC%) 0.0 % 0-0 NEUTROPHIL # (test code=NT#) 9.43 K/mm3 1.8-7.7 IMMATURE GRANULOCYTE # (test code=IG#) 0.06 x10 3/uL 0-0.03 LYMPHOCYTE # (test code=LY#) 1.85 K/mm3 1.0-5.0 MONOCYTE # (test code=MO#) 1.30 K/mm3 0-0.8 EOSINOPHIL # (test code=EO#) 0.26 K/mm3 0.0-0.5 BASOPHIL # (test code=BA#) 0.08 K/mm3 0.0-0.2 NUCLEATED RBC # (test code=NRBC#) 0.00 K/mm3 0.0-0.1 COMPREHENSIVE METABOLIC [id number] 19:51:00* Test Item Value Reference Range Comments SODIUM (test code=NA) 141 mmol/L 136-145 POTASSIUM (test code=K) 4.2 mmol/L 3.5-5.1 CHLORIDE (test code=CL) 107.0 mmol/L 98-107 CARBON DIOXIDE (test code=CO2) 27.0 mmol/L 21-32 ANION GAP (test code=GAP) 11.2 10-20 GLUCOSE (test code=GLU) 75 mg/dL 74-106 BLOOD UREA NITROGEN (test code=BUN) 16 mg/dL 7-18 GLOMERULAR FILTRATION RATE (test code=GFR) > 60 mL/min >=60 Estimated GFR by using Modified MDRD formula.Chronic kidney disease is defined as either kidney damageor GFR <60 mL/min/1.73 m2 for >3 months. CREATININE (test code=CREAT) 0.90 mg/dL 0.7-1.3 BUN/CREATININE RATIO (test code=BUN/CREA) 18.6 10-20 TOTAL PROTEIN (test code=PROT) 7.3 gram/dL 6.4-8.2 ALBUMIN (test code=ALB) 3.3 g/dL 3.4-5.0 GLOBULIN (test code=GLOB) 4.0 gram/dL 2.7-4.2 ALBUMIN/GLOBULIN RATIO (test code=A/G) 0.8 0.75-1.50 CALCIUM (test code=CA) 9.5 mg/dL 8.5-10.1 BILIRUBIN TOTAL (test code=BILT) 0.30 mg/dL 0.0-1.0 SGOT/AST (test code=AST) 18 IUnit/L 15-37 SGPT/ALT (test code=ALT) 26 IUnit/L 12-78 ALKALINE PHOSPHATASE TOTAL (test code=ALKP) 128 IUnit/L 45-117 Note change in reference range due to change in reagent. COMPREHENSIVE METABOLIC [id number] 19:48:00* Test Item Value Reference Range Comments SODIUM (test code=NA) 141 mmol/L 136-145 POTASSIUM (test code=K) 4.2 mmol/L 3.5-5.1 CHLORIDE (test code=CL) 107.0 mmol/L 98-107 CARBON DIOXIDE (test code=CO2) mmol/L 21-32 ANION GAP (test code=GAP) 10-20 GLUCOSE (test code=GLU) mg/dL 74-106 BLOOD UREA NITROGEN (test code=BUN) mg/dL 7-18 GLOMERULAR FILTRATION RATE (test code=GFR) mL/min >=60 CREATININE (test code=CREAT) mg/dL 0.7-1.3 BUN/CREATININE RATIO (test code=BUN/CREA) 10-20 TOTAL PROTEIN (test code=PROT) gram/dL 6.4-8.2 ALBUMIN (test code=ALB) g/dL 3.4-5.0 GLOBULIN (test code=GLOB) gram/dL 2.7-4.2 ALBUMIN/GLOBULIN RATIO (test code=A/G) 0.75-1.50 CALCIUM (test code=CA) mg/dL 8.5-10.1 BILIRUBIN TOTAL (test code=BILT) mg/dL 0.0-1.0 SGOT/AST (test code=AST) IUnit/L 15-37 SGPT/ALT (test code=ALT) IUnit/L 12-78 ALKALINE PHOSPHATASE TOTAL (test code=ALKP) IUnit/L 45-117 [id number] 15:30:00* Test Item Value Reference Range Comments GLUBED (test code=GLUBED) 220 mg/dL 74-106 Per[facility] by certified stamping press [facility] [id number] 11:05:00* Test Item Value Reference Range Comments GLUBED (test code=GLUBED) 203 mg/dL 74-106 Performed by certified stamping press operator at [facility] [id number] 08:27:00* Test Item Value Reference Range Comments GLUBED (test code=GLUBED) 83 mg/dL 74-106 Performed by certified stamping press operator [facility]~ [id number] 08:14:00* Test Item Value Reference Range Comments GLUBED (test code=GLUBED) 61 mg/dL 74-106 Performed by certified stamping press operator [facility]~ [id number] 07:46:00* Test Item Value Reference Range Comments GLUBED (test code=GLUBED) 55 mg/dL 74-106 Performed by certified stamping press operator [facility]~ [id number] 20:18:00* Test Item Value Reference Range Comments GLUBED (test code=GLUBED) 350 mg/dL 74-106 Performed by certified stamping press operator at [facility] [id number] 16:16:00* Test Item Value Reference Range Comments GLUBED (test code=GLUBED) 72 mg/dL 74-106 Performed by certified stamping press operator at [facility] [id number] 11:01:00* Test Item Value Reference Range Comments GLUBED (test code=GLUBED) 258 mg/dL 74-106 Performed by certified stamping press operator at [facility] [id number] 06:24:00* Test Item Value Reference Range Comments GLUBED (test code=GLUBED) 275 mg/dL 74-106 Performed by certified stamping press operator at [facility] [id number] 20:21:00* Test Item Value Reference Range Comments GLUBED (test code=GLUBED) 148 mg/dL 74-106 Performed by certified stamping press operator at [facility] [id number] 16:18:00* Test Item Value Reference Range Comments GLUBED (test code=GLUBED) 74 mg/dL 74-106 Performed by certified stamping press operator at [facility] [id number] 12:01:00* Test Item Value Reference Range Comments GLUBED (test code=GLUBED) 228 mg/dL 74-106 Performed by certified stamping press operator at [facility] [id number] 11:08:00* Test Item Value Reference Range Comments GLUBED (test code=GLUBED) 293 mg/dL 74-106 Performed by certified stamping press operator at [facility] [id number] 07:07:00* Test Item Value Reference Range Comments GLUBED (test code=GLUBED) 275 mg/dL 74-106 Performed by certified stamping press operator at [facility] [id number] 20:50:00* Test Item Value Reference Range Comments GLUBED (test code=GLUBED) 251 mg/dL 74-106 Performed by certified stamping press operator at [facility] [id number] 16:18:00* Test Item Value Reference Range Comments GLUBED (test code=GLUBED) 72 mg/dL 74-106 Performed by certified stamping press operator at [facility] [id number] 11:09:00* Test Item Value Reference Range Comments GLUBED (test code=GLUBED) 283 mg/dL 74-106 Performed by certified stamping press operator at [facility] BASIC METABOLIC [id number] 07:59:00* Test Item Value Reference Range Comments SODIUM (test code=NA) 141 mmol/L 136-145 POTASSIUM (test code=K) 4.2 mmol/L 3.5-5.1 CHLORIDE (test code=CL) 107.0 mmol/L 98-107 CARBON DIOXIDE (test code=CO2) 30.0 mmol/L 21-32 ANION GAP (test code=GAP) 8.2 10-20 GLUCOSE (test code=GLU) 132 mg/dL 74-106 BLOOD UREA NITROGEN (test code=BUN) 23 mg/dL 7-18 GLOMERULAR FILTRATION RATE (test code=GFR) > 60 mL/min >=60 Estimated GFR by using Modified MDRD formula.Chronic kidney disease is defined as either kidney damageor GFR <60 mL/min/1.73 m2 for >3 months. CREATININE (test code=CREAT) 0.80 mg/dL 0.7-1.3 BUN/CREATININE RATIO (test code=BUN/CREA) 30.5 10-20 CALCIUM (test code=CA) 9.5 mg/dL 8.5-10.1 BASIC METABOLIC [id number] 07:54:00* Test Item Value Reference Range Comments SODIUM (test code=NA) 141 mmol/L 136-145 POTASSIUM (test code=K) 4.2 mmol/L 3.5-5.1 CHLORIDE (test code=CL) 107.0 mmol/L 98-107 CARBON DIOXIDE (test code=CO2) mmol/L 21-32 ANION GAP (test code=GAP) 10-20 GLUCOSE (test code=GLU) mg/dL 74-106 BLOOD UREA NITROGEN (test code=BUN) mg/dL 7-18 GLOMERULAR FILTRATION RATE (test code=GFR) mL/min >=60 CREATININE (test code=CREAT) mg/dL 0.7-1.3 BUN/CREATININE RATIO (test code=BUN/CREA) 10-20 CALCIUM (test code=CA) mg/dL 8.5-10.1 [id number] 07:39:00* Test Item Value Reference Range Comments GLUBED (test code=GLUBED) 160 mg/dL 74-106 Performed by certified stamping press operator at [facility] CBC W/AUTO [id number] 06:56:00* Test Item Value Reference Range Comments WHITE BLOOD CELL (test code=WBC) 11.2 K/mm3 4.5-12.5 RED BLOOD CELL (test code=RBC) 4.01 mill/mm3 4.0-5.8 HEMOGLOBIN (test code=HGB) 11.8 gram/dL 13.0-17.5 HEMATOCRIT (test code=HCT) 36.2 % 42.0-52.0 MEAN CELL VOLUME (test code=MCV) 90.3 fL 80-98 MEAN CELL HGB (test code=MCH) 29.4 picogram 27.0-33.0 MEAN CELL HGB CONCETRATION (test code=MCHC) 32.6 gram/dL 33.0-36.0 RED CELL DISTRIBUTION WIDTH (test code=RDW) 13.2 % 11.6-16.2 RED CELL DISTRIBUTION WIDTH SD (test code=RDW-SD) 43.6 fL 37.0-51.0 PLATELET COUNT (test code=PLT) 299 K/mm3 150-450 MEAN PLATELET VOLUME (test code=MPV) 10.5 fL 6.7-11.0 NEUTROPHIL % (test code=NT%) 70.0 % 39.0-69.0 IMMATURE GRANULOCYTE % (test code=IG%) 0.4 % 0.0-5.0 LYMPHOCYTE % (test code=LY%) 17.2 % 25.0-55.0 MONOCYTE % (test code=MO%) 9.0 % 0.0-10.0 EOSINOPHIL % (test code=EO%) 2.6 % 0.0-5.0 BASOPHIL % (test code=BA%) 0.8 % 0.0-1.0 NUCLEATED RBC % (test code=NRBC%) 0.0 % 0-0 NEUTROPHIL # (test code=NT#) 7.81 K/mm3 1.8-7.7 IMMATURE GRANULOCYTE # (test code=IG#) 0.05 x10 3/uL 0-0.03 LYMPHOCYTE # (test code=LY#) 1.92 K/mm3 1.0-5.0 MONOCYTE # (test code=MO#) 1.00 K/mm3 0-0.8 EOSINOPHIL # (test code=EO#) 0.29 K/mm3 0.0-0.5 BASOPHIL # (test code=BA#) 0.09 K/mm3 0.0-0.2 NUCLEATED RBC # (test code=NRBC#) 0.00 K/mm3 0.0-0.1 MANUAL DIFF REQUIRED (test code=MDIFF) NO [id number] 21:19:00* Test Item Value Reference Range Comments GLUBED (test code=GLUBED) 208 mg/dL 74-106 Performed by certified stamping press operator at [facility] [id number] 16:21:00* Test Item Value Reference Range Comments GLUBED (test code=GLUBED) 302 mg/dL 74-106 Performed by certified stamping press operator at [facility] LIPID PROFILE (CORONARY RISK)2019-03-11 13:39:00* Test Item Value Reference Range Comments TRIGLYCERIDES (test code=TRIG) 50 mg/dL 20-150 CHOLESTEROL (test code=CHOL) 151 mg/dL 0-200 CHOLESTEROL/HDL RATIO (test code=CHOLHDL) 1.0 RATIO 0-4.9 RISK ASSOCIATED WITH CHOL/HDL RATIOS: Risk Male Female1/2 AVERAGE 3.43 3.27AVERAGE 4.97 4.442X AVERAGE 9.55 7.053X AVERAGE 23.39 11.04 REFERENCE VALUE IS RELATED TO RISK LEVELS ASRECOMMENDED BY THE RINKU. HEART, LUNG, AND BLOOD INST. HDL CHOLESTEROL (test code=HDL) 77 mg/dL 40-60 LIPOPROTEIN LDL (test code=LDL) 69 mg/dL 100-129 Reference Interval: mg/dL mmol/L Optimal <100 <2.6Near/above optimal 100-129 2.6- 3.3Borderline High 130-159 3.4-4.1High 160-189 4.1-4.9Very High >=190 >=4.9=========This LDL result is a direct measurement.========= [id number] 11:23:00* Test Item Value Reference Range Comments GLUBED (test code=GLUBED) 79 mg/dL 74-106 Performed by certified stamping press operator at [facility] [id number] 10:44:00* Test Item Value Reference Range Comments GLUBED (test code=GLUBED) 54 mg/dL 74-106 Performed by certified stamping press operator at [facility] [id number] 10:12:00* Test Item Value Reference Range Comments GLUBED (test code=GLUBED) 57 mg/dL 74-106 Performed by certified stamping press operator at [facility] [id number] 06:41:00* Test Item Value Reference Range Comments GLUBED (test code=GLUBED) 267 mg/dL 74-106 Performed by certified stamping press operator at [facility] T4 [id number] 18:30:00* Test Item Value Reference Range Comments T4 FREE (test code=T4F) 1.13 ng/dL 0.76-1.46 HARDSTICL RN TK (SLOW FLOW)V.LAB.[facility] 03/10/19 1501 THYROID STIMULATING HORMONE 2019-03-10 18:30:00* Test Item Value Reference Range Comments THYROID STIMULATING HORMONE (test code=TSH) 0.855 uIU/mL 0.36-3.74 TSH REFERENCE RANGES: EUTHYROID: 0.35 - 4.3 mIU/mL HYPO : > 5.5 mIU/mL HYPER : < 0.35 mIU/mL HARDSTICL RN TK (SLOW FLOW)V.LAB.1 03/10/19 1501 [id number] 18:20:00* Test Item Value Reference Range Comments GLYCOSYLATED HEMOGLOBIN (HA1C) (test code=GLYHGB) 13.1 % HbA1 4.8-6.0 ESTIMATED AVERAGE GLUCOSE (test code=EAG) 329 MG/DL HARDSTICK RN TK (SLOW fLOW)V.LAB.[facility] 03/10/19 [id number] 16:25:00* Test Item Value Reference Range Comments GLUBED (test code=GLUBED) 192 mg/dL 74-106 Performed by certified stamping press operator at [facility] PTIPHC9260-54-24 11:16:00* Test Item Value Reference Range Comments GLUBED (test code=GLUBED) 108 mg/dL 74-106 Performed by certified stamping press operator at [facility] LONJVO1376-15-78 07:14:00* Test Item Value Reference Range Comments GLUBED (test code=GLUBED) 297 mg/dL 74-106 Performed by certified stamping press operator at [facility] [id number] 21:02:00* Test Item Value Reference Range Comments GLUBED (test code=GLUBED) 315 mg/dL 74-106 Performed by certified stamping press operator at [facility] SYSLZI7481-96-93 16:09:00* Test Item Value Reference Range Comments GLUBED (test code=GLUBED) 218 mg/dL 74-106 Performed by certified stamping press operator at [facility] [id number] 11:30:00* Test Item Value Reference Range Comments GLUBED (test code=GLUBED) 63 mg/dL 74-106 Performed by certified stamping press operator at [facility] [id number] 07:00:00* Test Item Value Reference Range Comments GLUBED (test code=GLUBED) 207 mg/dL 74-106 Performed by certified stamping press operator at [facility] [id number] 20:06:00* Test Item Value Reference Range Comments GLUBED (test code=GLUBED) 280 mg/dL 74-106 Performed by certified stamping press operator at [facility] DWJAXY0517-90-23 16:14:00* Test Item Value Reference Range Comments GLUBED (test code=GLUBED) 138 mg/dL 74-106 Performed by certified stamping press operator at [facility] [id number] 11:16:00* Test Item Value Reference Range Comments GLUBED (test code=GLUBED) 193 mg/dL 74-106 Performed by certified stamping press operator at [facility] [id number] 10:50:00* Test Item Value Reference Range Comments GLUBED (test code=GLUBED) 277 mg/dL 74-106 Performed by certified stamping press operator at [facility] YLKSIK1646-96-72 16:09:00* Test Item Value Reference Range Comments GLUBED (test code=GLUBED) 159 mg/dL 74-106 Performed by certified stamping press operator at [facility] COMPREHENSIVE METABOLIC [id number] 12:34:00* Test Item Value Reference Range Comments SODIUM (test code=NA) 136 mmol/L 136-145 POTASSIUM (test code=K) 4.2 mmol/L 3.5-5.1 CHLORIDE (test code=CL) 102.0 mmol/L 98-107 CARBON DIOXIDE (test code=CO2) 28.0 mmol/L 21-32 ANION GAP (test code=GAP) 10.2 10-20 GLUCOSE (test code=GLU) 270 mg/dL 74-106 BLOOD UREA NITROGEN (test code=BUN) 13 mg/dL 7-18 GLOMERULAR FILTRATION RATE (test code=GFR) > 60 mL/min >=60 Estimated GFR by using Modified MDRD formula.Chronic kidney disease is defined as either kidney damageor GFR <60 mL/min/1.73 m2 for >3 months. CREATININE (test code=CREAT) 0.80 mg/dL 0.7-1.3 BUN/CREATININE RATIO (test code=BUN/CREA) 15.8 10-20 TOTAL PROTEIN (test code=PROT) 8.0 gram/dL 6.4-8.2 ALBUMIN (test code=ALB) 3.4 g/dL 3.4-5.0 GLOBULIN (test code=GLOB) 4.6 gram/dL 2.7-4.2 ALBUMIN/GLOBULIN RATIO (test code=A/G) 0.7 0.75-1.50 CALCIUM (test code=CA) 9.6 mg/dL 8.5-10.1 BILIRUBIN TOTAL (test code=BILT) 0.30 mg/dL 0.0-1.0 SGOT/AST (test code=AST) 12 IUnit/L 15-37 SGPT/ALT (test code=ALT) 21 IUnit/L 12-78 ALKALINE PHOSPHATASE TOTAL (test code=ALKP) 137 IUnit/L 45-117 Note change in reference range due to change in reagent. EATING, SAID COME BACK AFTERWARDS. COMPREHENSIVE METABOLIC [id number] 12:25:00* Test Item Value Reference Range Comments SODIUM (test code=NA) 136 mmol/L 136-145 POTASSIUM (test code=K) 4.2 mmol/L 3.5-5.1 CHLORIDE (test code=CL) 102.0 mmol/L 98-107 CARBON DIOXIDE (test code=CO2) mmol/L 21-32 ANION GAP (test code=GAP) 10-20 GLUCOSE (test code=GLU) mg/dL 74-106 BLOOD UREA NITROGEN (test code=BUN) mg/dL 7-18 GLOMERULAR FILTRATION RATE (test code=GFR) mL/min >=60 CREATININE (test code=CREAT) mg/dL 0.7-1.3 BUN/CREATININE RATIO (test code=BUN/CREA) 10-20 TOTAL PROTEIN (test code=PROT) gram/dL 6.4-8.2 ALBUMIN (test code=ALB) g/dL 3.4-5.0 GLOBULIN (test code=GLOB) gram/dL 2.7-4.2 ALBUMIN/GLOBULIN RATIO (test code=A/G) 0.75-1.50 CALCIUM (test code=CA) mg/dL 8.5-10.1 BILIRUBIN TOTAL (test code=BILT) mg/dL 0.0-1.0 SGOT/AST (test code=AST) IUnit/L 15-37 SGPT/ALT (test code=ALT) IUnit/L 12-78 ALKALINE PHOSPHATASE TOTAL (test code=ALKP) IUnit/L 45-117 EATING, SAID COME BACK AFTERWARDS. CBC W/AUTO [id number] 12:01:00* Test Item Value Reference Range Comments WHITE BLOOD CELL (test code=WBC) K/mm3 4.5-12.5 RED BLOOD CELL (test code=RBC) mill/mm3 4.0-5.8 HEMOGLOBIN (test code=HGB) 13.6 gram/dL 13.0-17.5 HEMATOCRIT (test code=HCT) % 42.0-52.0 MEAN CELL VOLUME (test code=MCV) fL 80-98 MEAN CELL HGB (test code=MCH) picogram 27.0-33.0 MEAN CELL HGB CONCETRATION (test code=MCHC) gram/dL 33.0-36.0 RED CELL DISTRIBUTION WIDTH (test code=RDW) % 11.6-16.2 RED CELL DISTRIBUTION WIDTH SD (test code=RDW-SD) fL 37.0-51.0 PLATELET COUNT (test code=PLT) K/mm3 150-450 MEAN PLATELET VOLUME (test code=MPV) fL 6.7-11.0 NEUTROPHIL % (test code=NT%) % 39.0-69.0 IMMATURE GRANULOCYTE % (test code=IG%) % 0.0-5.0 LYMPHOCYTE % (test code=LY%) % 25.0-55.0 MONOCYTE % (test code=MO%) % 0.0-10.0 EOSINOPHIL % (test code=EO%) % 0.0-5.0 BASOPHIL % (test code=BA%) % 0.0-1.0 NEUTROPHIL # (test code=NT#) K/mm3 1.8-7.7 LYMPHOCYTE # (test code=LY#) K/mm3 1.0-5.0 MONOCYTE # (test code=MO#) K/mm3 0-0.8 EOSINOPHIL # (test code=EO#) K/mm3 0.0-0.5 BASOPHIL # (test code=BA#) K/mm3 0.0-0.2 CBC W/AUTO [id number] 12:01:00* Test Item Value Reference Range Comments WHITE BLOOD CELL (test code=WBC) 7.9 K/mm3 4.5-12.5 RED BLOOD CELL (test code=RBC) 4.60 mill/mm3 4.0-5.8 HEMOGLOBIN (test code=HGB) 13.6 gram/dL 13.0-17.5 HEMATOCRIT (test code=HCT) 41.2 % 42.0-52.0 MEAN CELL VOLUME (test code=MCV) 89.6 fL 80-98 MEAN CELL HGB (test code=MCH) 29.6 picogram 27.0-33.0 MEAN CELL HGB CONCETRATION (test code=MCHC) 33.0 gram/dL 33.0-36.0 RED CELL DISTRIBUTION WIDTH (test code=RDW) 12.8 % 11.6-16.2 RED CELL DISTRIBUTION WIDTH SD (test code=RDW-SD) 42.3 fL 37.0-51.0 PLATELET COUNT (test code=PLT) 349 K/mm3 150-450 MEAN PLATELET VOLUME (test code=MPV) 10.0 fL 6.7-11.0 NEUTROPHIL % (test code=NT%) 61.8 % 39.0-69.0 IMMATURE GRANULOCYTE % (test code=IG%) 0.5 % 0.0-5.0 LYMPHOCYTE % (test code=LY%) 25.0 % 25.0-55.0 MONOCYTE % (test code=MO%) 9.0 % 0.0-10.0 EOSINOPHIL % (test code=EO%) 2.8 % 0.0-5.0 BASOPHIL % (test code=BA%) 0.9 % 0.0-1.0 NUCLEATED RBC % (test code=NRBC%) 0.0 % 0-0 NEUTROPHIL # (test code=NT#) 4.91 K/mm3 1.8-7.7 IMMATURE GRANULOCYTE # (test code=IG#) 0.04 x10 3/uL 0-0.03 LYMPHOCYTE # (test code=LY#) 1.98 K/mm3 1.0-5.0 MONOCYTE # (test code=MO#) 0.71 K/mm3 0-0.8 EOSINOPHIL # (test code=EO#) 0.22 K/mm3 0.0-0.5 BASOPHIL # (test code=BA#) 0.07 K/mm3 0.0-0.2 NUCLEATED RBC # (test code=NRBC#) 0.00 K/mm3 0.0-0.1 EGSQKX1864-32-16 10:54:00* Test Item Value Reference Range Comments GLUBED (test code=GLUBED) 252 mg/dL 74-106 Performed by certified stamping press operator at [facility] [id number] 06:32:00* Test Item Value Reference Range Comments GLUBED (test code=GLUBED) 473 mg/dL 74-106 Performed by certified stamping press operator at [facility] SKVJHF5089-05-59 20:11:00* Test Item Value Reference Range Comments GLUBED (test code=GLUBED) 220 mg/dL 74-106 Performed by certified stamping press operator at [facility] [id number] 16:15:00* Test Item Value Reference Range Comments GLUBED (test code=GLUBED) 346 mg/dL 74-106 Performed by certified stamping press operator at [facility] Bedside Tgckzvi1708-35-91 07:58:00* Test Item Value Reference Range Comments Bedside Glucose (test tsnd=41403-8) 287 70-120 Meter ID: [id number] HEAD [id number] 12:21:00 [place] [address] Patient Name: EARLE JUNE MR #: [id number] : 1960 Age/Sex: 58/M Req #: [id number] Adm Physician: SUKH MOULTON MD Ordered by: SUKH MOULTON MD Report #: [id number] Location: MED/SURG3 Room/Bed: [facility] Procedure: [id number] MRI/MRA HEAD WO Exam Date: Exam Time: REPORT STATUS: Signed MRA NECK WO, MRA HEAD WO HISTORY: Slurred speech COMPARISON: Concurrent MRI of the brain, cervical spine CT 07/27/2017 TECHNIQUE: Axial 2D cervical, and axial 3D intracra nial ighm-nm-ypyfcv MRA images were obtained without contrast. Maximum intensi ty projection images were created. If present, any cervical carotid stenosis will be measured as a percentage relative to the [place] artery distal to the s tenosis. FINDINGS: CERVICAL MRA: Right Carotid: No flow abnormal ities. Left Carotid: No flow abnormalities. Right vertebral artery: No fl ow abnormalities. Left vertebral artery: No flow abnormalities. INTRACR ANIAL MRA: Carotid arteries: Bilateral carotid siphon calcifications are present without significant stenosis. No other flow abnormalities in the in tracranial internal carotid arteries. Normal A1 and M1 segments. Vertebro basilar Circulation: Right vertebral artery: No flow abnormalities. Left ve rtebral artery: No flow abnormalities. Basilar artery: No flow abnormalities. Posterior cerebral arteries: No flow abnormalities. Normal Variants: ACom: Visualized. PComs: Questionable patency on the left. Not visualized on the right Vertebral arteries: Co-dominant. IMPRESSION: 1. Bilateral ca rotid siphon calcifications without significant stenosis. 2. No other intracr anial or cervical MRA abnormalities. Signed by: Dr. Sohail Holly M.D. on 03/05/2019 12:29 PM Dictated By: SOHAIL HOLLY MD Electronically Sign ed By: SOHAIL HOLLY MD on 03/05/191228 Transcribed By: LUCRETIA on 03/05/191228 COPY TO: SUKH MOULTON MD MRA NECK [id number] 12:21:00 [place] [address] Patient Name: EARLE JUNE MR #: [id number] : 1960 Age/Sex: 58/M Req #: [id number] Adm Physician: SUKH MOULTON MD Ordered by: SUKH MOULTON MD Report #: [id number] Location: MED/SURG3 Room/Bed: [facility] Procedure: [id number] MRI/MRA NECK WO Exam Date: Exam Time: REPORT STATUS: Signed MRA NECK WO, MRA HEAD WO HISTORY: Slurred speech COMPARISON: Concurrent MRI of the brain, cervical spine CT 07/27/2017 TECHNIQUE: Axial 2D cervical, and axial 3D intracra nial wqzm-mt-nlkyrx MRA images were obtained without contrast. Maximum intensi ty projection images were created. If present, any cervical carotid stenosis will be measured as a percentage relative to the [place] artery distal to the s tenosis. FINDINGS: CERVICAL MRA: Right Carotid: No flow abnormal ities. Left Carotid: No flow abnormalities. Right vertebral artery: No fl ow abnormalities. Left vertebral artery: No flow abnormalities. INTRACR ANIAL MRA: Carotid arteries: Bilateral carotid siphon calcifications are present without significant stenosis. No other flow abnormalities in the in tracranial internal carotid arteries. Normal A1 and M1 segments. Vertebro basilar Circulation: Right vertebral artery: No flow abnormalities. Left ve rtebral artery: No flow abnormalities. Basilar artery: No flow abnormalities. Posterior cerebral arteries: No flow abnormalities. Normal Variants: ACom: Visualized. PComs: Questionable patency on the left. Not visualized on the right Vertebral arteries: Co-dominant. IMPRESSION: 1. Bilateral ca rotid siphon calcifications without significant stenosis. 2. No other intracr anial or cervical MRA abnormalities. Signed by: Dr. Sohail Holly M.D. on 03/05/2019 12:29 PM Dictated By: SOHAIL HOLLY MD Electronically Sign ed By: SOHAIL HOLLY MD on 03/05/191228 Transcribed By: LUCRETIA on 03/05/191228 COPY TO: SUKH MOULTON MD MRI BRAIN [id number] 12:12:00 [place] [address] Patient Name: EARLE JUNE MR #: [id number] : 1960 Age/Sex: 58/M Req #: [id number] Adm Physician: SUKH MOULTON MD Ordered by: SUKH MOULTON MD Report #: [id number] Location: [facility]/SURG[facility] Room/Bed: [facility] Procedure: [id number] MRI/MRI BRAIN WO Exam Date: Exam Time: REPORT STATUS: Signed MRI BRAIN WO HISTORY: S lurred speech COMPARISON: Head CT 03/04/2019 and 04/29/2018 TECHNIQUE: Sagittal T2, axial T2, axial T1, axial T2/FLAIR, axial gradient echo (or shepard sceptibility weighted), coronal T2/FLAIR, and axial diffusion weighted MR imag es of the brain were obtained without contrast. Motion artifacts obscure some details. DISCUSSION: Scalp/bone marrow: Small nodular T1/T2/FLAIR hyp erintense lesions in the right parietal calvarium loose signal on T2 fat-sat; these may be hemangiomas. Brain sulci: Appropriate for patient's age. Ventri cles: Mild to moderate supratentorial ventriculomegaly is slightly out of pro portion to sulcal prominence. Extra-axial spaces: No masses or fluid collectio ns. Parenchyma: Focal diffusion restriction in the right paramedian sue (bright on DWI, dark on ADC) is compatible with an acute lacunar infarct. As sociated old small lacunar infarct is seen in the left sue. Scattered T2/FLAI R hyperintense foci throughout the supratentorial white matter and sue are li erika chronic microvascular ischemic changes. Otherwise, no mass, hemorrhage , or other acute vascular insults. Vessels: Normal flow voids in major betty harish and veins. Sellar/Suprasellar region: No abnormalities. Craniocervical junction: Mild to moderate canal stenosis at C3-C4 is due to disc bulge and l igamentum flavum thickening. Focal T2 hyperintensity in the spinal cord at C3- C4 may be due to myelomalacia. Incidental findings: Both ocular lenses are thi nned. IMPRESSION: 1. Small acute lacunar infarct in the right sue. 2 . Unchanged mild to moderate supratentorial ventriculomegaly is slightly out of proportion to sulcal prominence. Correlate for communicating hydrocephalus (i.e. normal pressure hydrocephalus). 3. Otherwise, no acute intracranial abn ormalities. 4. Mild supratentorial/pontine chronic microvascular ischemic harley nge. 5. Old left pontine lacunar infarct. Signed by: Dr. Sohail Gill M.D. on 03/05/2019 12:21 PM Dictated By: SOHAIL HOLLY MD Elect ronically Signed By: SOHAIL HOLLY MD on 03/05/19 1221 Transcribed By: TATE MARSHALL on 03/05/19 1221 COPY TO: SUKH MOULTON MD Triglycerides Level 2019-03-05 07:41:00* Test Item Value Reference Range Comments Triglycerides Level (test vtrr=8986-9) 68 0-149 Cholesterol Advct4313-77-48 07:41:00* Test Item Value Reference Range Comments Cholesterol Level (test vtoa=4541-4) 175 0-199 Less than 200 mg/dL Low Jkeb124 - 239 mg/dL Borderline Ypff713 m g/dl and greater High Risk LDL Vkpeorhbxpx7035-71-51 07:41:00* Test Item Value Reference Range Comments LDL Cholesterol (test hvnk=9913-6) 99 60-130 HDL Qymrpcepkpp4124-40-57 07:41:00* Test Item Value Reference Range Comments HDL Cholesterol (test mcaj=9564-6) 62 40-60 Cholesterol/HDL Upphv5953-63-04 07:41:00* Test Item Value Reference Range Comments Cholesterol/HDL Ratio (test pnqv=9593-8) 2.8 3.9-4.7 Hemoglobin A1c Ipbtmal5493-62-66 07:35:00* Test Item Value Reference Range Comments Hemoglobin A1c Percent (test code=Hemoglobin A1c Percent) 13.9 4.0-7.0 Sodium Pqlwi0933-46-67 06:11:00* Test Item Value Reference Range Comments Sodium Level (test evux=1916-5) 136 136-145 Potassium Ymwdh2382-17-61 06:11:00* Test Item Value Reference Range Comments Potassium Level (test inpe=0435-4) 3.7 3.5-5.1 Chloride Skaeh6493-25-23 06:11:00* Test Item Value Reference Range Comments Chloride Level (test kezb=4265-6) 101 98-107 Carbon Dioxide Qtito8730-51-01 06:11:00* Test Item Value Reference Range Comments Carbon Dioxide Level (test smrr=8069-9) 26 22-29 Anion Tob9656-24-90 06:11:00* Test Item Value Reference Range Comments Anion Gap (test cjxo=59013-2) 12.7 8-16 Blood Urea Vasxvgrk2215-13-15 06:11:00* Test Item Value Reference Range Comments Blood Urea Nitrogen (test nusq=7878-1) 12 7-26 Nmmmyhybqz4373-28-08 06:11:00* Test Item Value Reference Range Comments Creatinine (test ijil=4888-5) 0.72 0.72-1.25 BUN/Creatinine Iqnyh2784-53-54 06:11:00* Test Item Value Reference Range Comments BUN/Creatinine Ratio (test gcik=0007-7) 17 6-25 Estimat Glomerular Filtration Upkc4884-78-48 06:11:00* Test Item Value Reference Range Comments Estimat Glomerular Filtration Rate (test wubc=214767740) > 60 >60 Ranges were taken from the National Kidney Disease Education Program and the [facility] literature.Reference ranges:60 or greater: Pfqszz52-39 ( for 3 consecutive months): Chronic kidney disease 15 or less: Kidney failure Glucose Bmqro4391-75-28 06:11:00* Test Item Value Reference Range Comments Glucose Level (test ufzn=QGG6585) 116 74-118 Calcium Vtykx5240-50-04 06:11:00* Test Item Value Reference Range Comments Calcium Level (test eckv=21532-1) 9.5 8.4-10.2 Phosphorus Jenbb9077-17-88 06:11:00* Test Item Value Reference Range Comments Phosphorus Level (test lgsb=IJR4783) 3.8 2.3-4.7 Magnesium Dmsgz4738-59-40 06:11:00* Test Item Value Reference Range Comments Magnesium Level (test olwg=58235-4) 1.9 1.3-2.1 Creatine Kinase WO8298-32-26 15:18:00* Test Item Value Reference Range Comments Creatine Kinase MB (test ebld=31170-2) 0.80 0-5.0 Troponin N0977-39-92 15:18:00* Test Item Value Reference Range Comments Troponin I (test nmlx=CDO0103) 0.026 0-0.300 Urine QPL8792-30-52 15:04:00* Test Item Value Reference Range Comments Urine WBC (test bezl=9089-1) NONE 0-5 Urine XBV8159-16-55 15:04:00* Test Item Value Reference Range Comments Urine RBC (test sgdr=51231-5) NONE 0-5 Urine Gddejwhg5691-10-67 15:04:00* Test Item Value Reference Range Comments Urine Bacteria (test jvrl=46880-1) NONE NONE Urine Epithelial Qkrpp6663-90-19 15:04:00* Test Item Value Reference Range Comments Urine Epithelial Cells (test dvvm=40145-4) NONE NONE Urine Amorphous Nookzotf9102-98-95 15:04:00* Test Item Value Reference Range Comments Urine Amorphous Sediment (test zgyg=7179-5) FEW FEW Urine Ydzyh6415-81-97 15:04:00* Test Item Value Reference Range Comments Urine Sperm (test tgtf=2210-5) PRESENT NONE Total Wzxkwwmfs3763-77-93 15:03:00* Test Item Value Reference Range Comments Total Bilirubin (test phmn=0226-0) 0.4 0.2-1.2 Aspartate Amino Transf (AST/SGOT)2019-03-04 15:03:00* Test Item Value Reference Range Comments Aspartate Amino Transf (AST/SGOT) (test code=Aspartate Amino Transf (AST/SGOT)) 12 5-34 Alanine Aminotransferase (ALT/SGPT)2019-03-04 15:03:00* Test Item Value Reference Range Comments Alanine Aminotransferase (ALT/SGPT) (test tpwa=1545-9) 11 0-55 Total Hntlthp1375-35-97 15:03:00* Test Item Value Reference Range Comments Total Protein (test aiam=7876-6) 7.1 6.5-8.1 Vsqnsvd9132-20-15 15:03:00* Test Item Value Reference Range Comments Albumin (test voup=0990-0) 3.5 3.5-5.0 Sinitpvd2288-26-90 15:03:00* Test Item Value Reference Range Comments Globulin (test kogc=47869-1) 3.6 2.3-3.5 Albumin/Globulin Rmazq2078-02-09 15:03:00* Test Item Value Reference Range Comments Albumin/Globulin Ratio (test encb=0187-1) 1.0 0.8-2.0 Alkaline Fngkngymvqt5827-87-57 15:03:00* Test Item Value Reference Range Comments Alkaline Phosphatase (test rlni=7337-5) 134 40-150 Creatine Jauqzz6726-34-31 15:03:00* Test Item Value Reference Range Comments Creatine Kinase (test bzps=0868-9) 57 30-200 White Blood Nfxwr6193-19-15 14:50:00* Test Item Value Reference Range Comments White Blood Count (test tuzr=3878-3) 8.93 4.8-10.8 Red Blood Zduwb0107-50-91 14:50:00* Test Item Value Reference Range Comments Red Blood Count (test fvow=936-7) 4.31 4.3-5.7 Dniqsaxkxt5386-66-68 14:50:00* Test Item Value Reference Range Comments Hemoglobin (test yrei=74518-5) 12.8 14.0-18.0 Wfbhaclbzg4240-41-18 14:50:00* Test Item Value Reference Range Comments Hematocrit (test xajl=9427-4) 37.9 38.2-49.6 Mean Corpuscular Jzwfcx6664-04-77 14:50:00* Test Item Value Reference Range Comments Mean Corpuscular Volume (test ortt=817-0) 87.9 81-99 Mean Corpuscular Krggctidjz1163-83-29 14:50:00* Test Item Value Reference Range Comments Mean Corpuscular Hemoglobin (test jzju=024-4) 29.7 28-32 Mean Corpuscular Hemoglobin Cbwvgog5532-55-13 14:50:00* Test Item Value Reference Range Comments Mean Corpuscular Hemoglobin Concent (test fhhn=461-8) 33.8 31-35 Red Cell Distribution Qxkan8135-69-48 14:50:00* Test Item Value Reference Range Comments Red Cell Distribution Width (test yzzx=83571-4) 12.9 11.7-14.4 Platelet Sudfe3070-41-30 14:50:00* Test Item Value Reference Range Comments Platelet Count (test tnls=034-2) 316 140-360 Neutrophils (%) (Auto)2019-03-04 14:50:00* Test Item Value Reference Range Comments Neutrophils (%) (Auto) (test lcrq=07926-1) 68.0 38.7-80.0 Lymphocytes (%) (Auto)2019-03-04 14:50:00* Test Item Value Reference Range Comments Lymphocytes (%) (Auto) (test zqnd=295-5) 19.8 18.0-39.1 Monocytes (%) (Auto)2019-03-04 14:50:00* Test Item Value Reference Range Comments Monocytes (%) (Auto) (test luts=8170-9) 9.6 4.4-11.3 Eosinophils (%) (Auto)2019-03-04 14:50:00* Test Item Value Reference Range Comments Eosinophils (%) (Auto) (test upgd=788-5) 1.5 0.0-6.0 Basophils (%) (Auto)2019-03-04 14:50:00* Test Item Value Reference Range Comments Basophils (%) (Auto) (test ckuw=523-2) 0.7 0.0-1.0 IM GRANULOCYTES %2019-03-04 14:50:00* Test Item Value Reference Range Comments IM GRANULOCYTES % (test code=IM GRANULOCYTES %) 0.4 0.0-1.0 Neutrophils # (Auto)2019-03-04 14:50:00* Test Item Value Reference Range Comments Neutrophils # (Auto) (test pjoi=614-2) 6.1 2.1-6.9 Lymphocytes # (Auto)2019-03-04 14:50:00* Test Item Value Reference Range Comments Lymphocytes # (Auto) (test tqkc=34203-7) 1.8 1.0-3.2 Monocytes # (Auto)2019-03-04 14:50:00* Test Item Value Reference Range Comments Monocytes # (Auto) (test ytcs=960-1) 0.9 0.2-0.8 Eosinophils # (Auto)2019-03-04 14:50:00* Test Item Value Reference Range Comments Eosinophils # (Auto) (test ftyp=577-6) 0.1 0.0-0.4 Basophils # (Auto)2019-03-04 14:50:00* Test Item Value Reference Range Comments Basophils # (Auto) (test rpxs=832-9) 0.1 0.0-0.1 Absolute Immature Granulocyte (mzig8999-59-31 14:50:00* Test Item Value Reference Range Comments Absolute Immature Granulocyte (auto (test code=Absolute Immature Granulocyte (auto) 0.04 0-0.1 Urine Jfnfj0020-98-16 14:50:00* Test Item Value Reference Range Comments Urine Color (test bjhl=3113-0) YELLOW YELLOW Urine Kksubzm9903-69-66 14:50:00* Test Item Value Reference Range Comments Urine Clarity (test erxt=81107-3) SL CLOUDY CLEAR Urine Specific Irsnbnw0600-28-03 14:50:00* Test Item Value Reference Range Comments Urine Specific [place] (test kqnq=9187-5) 1.015 1.010-1.025 Urine [id number] 14:50:00* Test Item Value Reference Range Comments Urine pH (test aujb=59817-1) 6.5 5-7 Urine Leukocyte Kysumumo5401-50-72 14:50:00* Test Item Value Reference Range Comments Urine Leukocyte Esterase (test gmpj=06280-2) NEGATIVE NEGATIVE Urine Uyvmfbp9370-31-40 14:50:00* Test Item Value Reference Range Comments Urine Nitrite (test cnrg=51471-0) NEGATIVE NEGATIVE Urine Iqzugdo4659-46-83 14:50:00* Test Item Value Reference Range Comments Urine Protein (test tfza=60251-1) NEGATIVE NEGATIVE Urine Glucose (UA)2019-03-04 14:50:00* Test Item Value Reference Range Comments Urine Glucose (UA) (test wkvn=20949-9) 3+ NEGATIVE Urine Yhcrffu8234-15-08 14:50:00* Test Item Value Reference Range Comments Urine Ketones (test zouy=34331-0) NEGATIVE NEGATIVE Urine Fsiioljkavhj3896-70-11 14:50:00* Test Item Value Reference Range Comments Urine Urobilinogen (test xtrq=26715-3) 0.2 0.2-1 Urine Ykudnjshk3723-36-78 14:50:00* Test Item Value Reference Range Comments Urine Bilirubin (test jbsh=5147-1) NEGATIVE NEGATIVE Urine [id number] 14:50:00* Test Item Value Reference Range Comments Urine Blood (test vcgm=28565-6) NEGATIVE NEGATIVE CT BRAIN [id number] 14:30:00 [place] [address] Patient Name: EARLE JUNE MR #: [id number] : 1960 Age/Sex: 58/M Req #: [id number] Adm Physician: Ordered by: KALEB SHELBY MD Report #: [id number] Location: ER Room/Bed: Procedure: [id number] CT/CT BRAIN WO Exam Date: 03/04/19 Exam Time: 1335 REPORT STATUS: Signed Exam: Head CT wit hout contrast History: Generalized weakness, altered mental status Comparis on studies: Head CT 04/29/2018. Technique: Axial images were obtained fro m the skull base to the vertex. Coronal and sagittal images reconstructed from the axial data. Dose modulation, iterative reconstruction, and/or weight bas ed adjustment of the mA/kV was utilized to reduce the radiation dose to as low as reasonably achievable. Radiation dose: Total DLP: 832 mGy*cm. Estimated effective dose: DLP x 0.015 Intravenous contrast: None Findin gs: Scalp and bones: Unchanged retained metallic foreign bodies in the righ t parietal and in that in the outer table the right parietal calvarium which result in artifact in the underlying brain parenchyma... Unchanged, nonaggres sive-appearing subcentimeter lytic foci in the right parietal calvarium. No fr actures. Brain sulci: Appropriate for age. Ventricles: Moderate ventricul omegaly, slightly distortion of sulcal prominence may be related to degree of central greater peripheral cortical volume loss. Consider normal pressure hydr ocephalus (NPH) only in the appropriate clinical setting. Extra-axial spa vish: No masses, no fluid collection. Parenchyma: New mass, acute hemorr janny or acute cortical insults. Small chronic lacunar infarcts in the right an teromedial thalamus, right lentiform nucleus and possibly in the right sue. Sellar/suprasellar region: No abnormalities. Craniocervical junction: James nt foramen magnum. No Chiari one malformation. Incidental findings: Calc ified after cirrhosis in the carotid siphons and intradural vertebral arteries . IMPRESSION: No acute abnormalities. Chronic findings: 1. Ge neralized and callosal volume loss. 2. Small chronic lacunar infarcts as desc ribed. 3. Nonspecific ventriculomegaly as described. No acute hydrocephalus. Signed by: Dr. Junior Vines M.D. on 03/04/2019 2:48 PM Dictated By: JUNIOR VINES MD 14 48 Transcribed By: LUCRETIA on 03/04/19 4169 COPY TO: KALEB SHELBY MD CHEST SINGLE (PORTABLE)2019-03-04 14:05:00 [place] [address] Patient Name: EARLE JUNE MR #: [id number] : 1960 Age/Sex: 58/M Req #: [id number] Adm Physician: Ordered by: KALEB SHELBY MD Report #: [id number] Location: ER Room/Bed: Procedure: [id number] DX/AR ST SINGLE (PORTABLE) Exam Date: 03/04/19 Exam Time: 1344 REPORT STATUS: Signed EXAMI NATION: CHEST SINGLE (PORTABLE) INDICATION: Chest pain COMPARISON : Multiple prior chest radiograph, most recently 07/30/2018 FINDINGS: TUBES and LINES: None. LUNGS: The lungs are well inflated. No focal con solidation or pulmonary edema. Scattered calcified granulomas. PLEURA: N o pleural effusion or pneumothorax. HEART AND MEDIASTINUM: The cardiomedia stinal silhouette is normal in size and contour. BONES AND SOFT TISSUES: No acute fracture or dislocation. Unchanged metallic BBs in the right chest so ft tissues. UPPER ABDOMEN: No free air under the diaphragm. IMPRESSION : No focal pneumonia or pulmonary edema. Signed by: Eliseo Ware MD on 2:08 PM Dictated By: ELISEO WARE MD 07 Transcribed By: LUCRETIA on 03/04/191407 COPY TO: KALEB SHELBY MD CT ABDOMEN/PELVIS [id number] 22:20:00 [place] [address] Patient Name: EARLE JUNE MR #: [id number] : 1960 Age/Sex: 58/M Req #: [id number] Adm Physician: Ordered by: TONIO PHILLIPS MD Report #: [id number] Location: ER Room/Bed: Procedure: [id number] CT/CT ABDOMEN/PELVIS W Exam Date: 07/30/18 Exam Time: 0 REPORT STATUS: Signed EXAM: CT Abdomen and Pelvis WITH contrast INDICATION: Nausea, vomiting.18 LB WEIGHT LOSS X 4 WEEKS COMPARISON: None. TECHNIQUE: Abdomen and pelvis were scanned utilizing a multidetector helical scanner from the lung base to the pubic sym physis after administration of IV contrast. Coronal and sagittal reformations were obtained. Routine protocol was performed. Scan was performed when during portal venous phase. IV CONTRAST: 100 mL of Isovue-370 ORAL CO NTRAST: Gastroview COMPLICATIONS: None RADIATION DOSE: Total DLP: 169.7 mGy*cm Estimated effective dose: (DLP x 0.015 x size factor) mSv CTDIvol has been reviewed. It is below the limits set by the Radiation Protocol Committee (RPC). Dose modulation, iterative reconstruction, and/or weight based adjustment of the mA/kV was utilized to reduce the radia tion dose to as low as reasonably achievable. FINDINGS: Evaluation limi oniel by late arterial contrast timing, paucity of intraabdominal fat, and non-o pacification of the distal small bowel loops with enteric contrast. LINE S and TUBES: None. LOWER THORAX: Unremarkable HEPATOBILIARY: No focal hepatic lesions. No biliary ductal dilation. GALLBLADDER: No radio-o paque stones or sludge. No wall thickening. SPLEEN: No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
[2019-12-09] MEDS ORDERED: SODIUM CHLORIDE 0.9% 500ML 500 ML IV STA (14:39)
--- NOTE | 2019-12-09 16:09 | Diagnostic Imaging Report ---
EXAMINATION: CHEST SINGLE (PORTABLE) INDICATION: Diabetes, weakness COMPARISON: Chest radiograph 03/04/2019 FINDINGS: LINES/TUBES:EKG leads overlie the chest. LUNGS:The lungs are well-inflated. No focal consolidation or pulmonary edema. PLEURA:No pleural effusion or pneumothorax. MEDIASTINUM:The cardiomediastinal silhouette appears normal in size and shape. BONES/SOFT TISSUES:Unchanged round metallic densities overlie the right upper thorax and right upper quadrant of the abdomen. No acute osseous injury. ABDOMEN:No free air under the diaphragm. IMPRESSION: No focal pneumonia or pulmonary edema. Signed by: Katie Garcia MD on 12/09/2019 4:06 PM
[2019-12-09 16:20] LABS: BASOPHILS # (AUTO) 0.1 (0.0-0.1); BASOPHILS % 0.8 % (0.0-1.0); EOSINOPHILS # (AUTO) 0.1 (0.0-0.4); EOSINOPHILS % 1.1 % (0.0-6.0); HEMATOCRIT 36.3 % (38.2-49.6); HEMOGLOBIN 12.2 g/dL (14.0-18.0); LYMPHOCYTES # (AUTO) 1.8 (1.0-3.2); MEAN CORPUSCULAR HEMOGLOBIN 28.6 pg (28-32); MEAN CORPUSCULAR HGB CONC 33.6 g/dL (31-35); MEAN CORPUSCULAR VOLUME 85.2 fL (81-99); MONOCYTES # (AUTO) 0.7 (0.2-0.8); MONOCYTES % 9.4 % (4.4-11.3); NEUTROPHILS # (AUTO) 4.5 (2.1-6.9); NEUTROPHILS % 63.3 % (38.7-80.0); PLATELET COUNT 298 x10e3/uL (140-360); RED BLOOD COUNT 4.26 x10e6/uL (4.3-5.7); RED CELL DISTRIBUTION WIDTH 13.3 % (11.7-14.4)
[2019-12-09 16:44] LABS: ALANINE AMINOTRANSFERASE 22 IU/L (0-55); ALBUMIN 3.5 g/dL (3.5-5.0); ALBUMIN/GLOBULIN RATIO 0.7 (0.8-2.0); ALKALINE PHOSPHATASE 117 IU/L (40-150); ANION GAP 12.9 mmol/L (8-16); BLOOD UREA NITROGEN 11 mg/dL (7-26); BUN/CREATININE RATIO 10 (6-25); CALCIUM 9.8 mg/dL (8.4-10.2); CARBON DIOXIDE 26 mmol/L (22-29); CHLORIDE 96 mmol/L (98-107); CREATINE KINASE 69 IU/L (30-200); CREATININE, SERUM 1.07 mg/dL (0.72-1.25); EST GLOMERULAR FILTRATION RATE > 60 ML/MIN (60-); POTASSIUM 4.9 mmol/L (3.5-5.1); SODIUM 130 mmol/L (136-145)
[2019-12-09 16:47] LABS: GLUCOSE 514 mg/dL (74-118)
--- NOTE | 2019-12-09 16:55 | NUR ---
10 UNITS OF REGULAR INSULIN ORDERED AND PT REFUSED, "I CAN'T TAKE REGUALR INSULIN. THEY TOLD ME NOT TO TAKE IT
[2019-12-09] MEDS ORDERED: INSULIN REGULAR, HUMAN 100 UNIT/1 ML 3ML VIAL IV ONE (17:00)
[2019-12-09 17:26] LABS: INR 0.89; PROTHROMBIN TIME 12.6 seconds (11.9-14.5)
[2019-12-09 17:27] LABS: PARTIAL THROMBOPLASTIN TIME 32.2 seconds (23.8-35.5)
[2019-12-09] MEDS ORDERED: INSULIN LISPRO 100 UNIT/1 ML 3ML VIAL SQ ONE (17:45)
[2019-12-09] MEDS ORDERED: DEXTROSE 50% SYRINGE 50 ML IV PRN (18:00)
[2019-12-09 18:10] LABS: BILIRUBIN,URINE NEGATIVE (NEGATIVE); CLARITY,URINE SL CLOUDY (CLEAR); COLOR,URINE YELLOW (YELLOW); KETONES,URINE NEGATIVE (NEGATIVE); LEUKOCYTE ESTERASE ,URINE NEGATIVE (NEGATIVE); NITRITE,URINE NEGATIVE (NEGATIVE); PROTEIN,URINE DIPSTICK NEGATIVE (NEGATIVE); URINE UROBILINOGEN 0.2 mg/dL (0.2 - 1)
[2019-12-09 18:41] LABS: BACTERIA,URINE RARE /HPF; RBC,URINE 0-5 /HPF (0-5); WBC,URINE (MAN) 0-5 /HPF (0-5)
[2019-12-09 18:42] LABS: YEAST,URINE RARE
[2019-12-09] MEDS ORDERED: INSULIN LISPRO 100 UNIT/1 ML 3ML VIAL SQ SCH (21:00)
[2019-12-09] MEDS ORDERED: INSULIN GLARGINE 100 UNITS/ML VIAL SQ SCH (21:00)
[2019-12-09] MEDS: INSULIN LISPRO 100 UNIT/1 ML 3ML VIAL SQ SCH (21:36)
[2019-12-09] MEDS ORDERED: SODIUM CHLORIDE 0.9% 1000ML 1,000 ML ONE (22:29)
[2019-12-09 22:30] VITALS: BP 118/89
[2019-12-09 23:30] VITALS: BP 118/89
[2019-12-09 23:32] VITALS: BP 118/89
[2019-12-09 23:43] VITALS: BP 118/89
[2019-12-09] MEDS: SODIUM CHLORIDE 0.9% 1000ML 1,000 ML IV SCH (23:48)
[2019-12-10 05:04] VITALS: BP 132/76
[2019-12-10] MEDS ORDERED: INSULIN LISPRO 100 UNIT/1 ML 3ML VIAL SQ SCH ×5 (06:00→16:30)
[2019-12-10 06:33] LABS: BASOPHILS # (AUTO) 0.1 (0.0-0.1); BASOPHILS % 0.7 % (0.0-1.0); EOSINOPHILS # (AUTO) 0.1 (0.0-0.4); EOSINOPHILS % 1.3 % (0.0-6.0); HEMATOCRIT 33.7 % (38.2-49.6); HEMOGLOBIN 11.5 g/dL (14.0-18.0); LYMPHOCYTES # (AUTO) 2.1 (1.0-3.2); LYMPHOCYTES % 24.3 % (18.0-39.1); MEAN CORPUSCULAR HEMOGLOBIN 28.9 pg (28-32); MEAN CORPUSCULAR HGB CONC 34.1 g/dL (31-35); MEAN CORPUSCULAR VOLUME 84.7 fL (81-99); MONOCYTES # (AUTO) 0.7 (0.2-0.8); MONOCYTES % 8.6 % (4.4-11.3); NEUTROPHILS # (AUTO) 5.5 (2.1-6.9); NEUTROPHILS % 64.7 % (38.7-80.0); PLATELET COUNT 297 x10e3/uL (140-360); RED BLOOD COUNT 3.98 x10e6/uL (4.3-5.7)
[2019-12-10 06:58] LABS: BLOOD UREA NITROGEN 9 mg/dL (7-26); BUN/CREATININE RATIO 12 (6-25); CALCIUM 8.8 mg/dL (8.4-10.2); CARBON DIOXIDE 27 mmol/L (22-29); CHLORIDE 101 mmol/L (98-107); CREATININE, SERUM 0.73 mg/dL (0.72-1.25); EST GLOMERULAR FILTRATION RATE > 60 ML/MIN (60-); GLUCOSE 293 mg/dL (74-118); SODIUM 134 mmol/L (136-145)
--- NOTE | 2019-12-10 06:58 | Diagnostic Imaging Report ---
EXAMINATION: CHEST SINGLE (PORTABLE) INDICATION: Hyperglycemia. COMPARISON: Chest radiograph 12/09/2019. FINDINGS: The right lateral hemithorax is partially excluded from the [id number]. LINES/TUBES:EKG leads overlie the chest. LUNGS:The lungs are well-inflated. No focal consolidation or pulmonary edema. Bilateral calcified granulomas. PLEURA:No pleural effusion or pneumothorax. MEDIASTINUM:The cardiomediastinal silhouette appears normal in size and shape. BONES/SOFT TISSUES:Unchanged round metallic densities overlie the right upper thorax and right upper quadrant of the abdomen. No acute osseous injury. ABDOMEN:No free air under the diaphragm. IMPRESSION: No acute radiographic abnormality. Signed by: Dr. Edgardo Renteria MD on 12/10/2019 6:54 AM
[2019-12-10 07:30] LABS: CREATINE KINASE MB 2.7 ng/mL (0-5.0)
[2019-12-10 08:35] VITALS: BP 134/81
[2019-12-10] MEDS: INSULIN LISPRO 100 UNIT/1 ML 3ML VIAL SQ SCH (08:49)
[2019-12-10] MEDS ORDERED: INSULIN GLARGINE 100 UNITS/ML VIAL SQ SCH ×2 (09:00→21:00)
--- NOTE | 2019-12-10 09:22 | NUR ---
H&P CHIEF COMPLAINT: uncontrolled glucose HISTORY OF PRESENT ILLNESS: This is a 59-year-old male, with hx DM1 quite brittle, now here for control as levels as high as 500 at home. Pt admits to not seeing in clinic. PAST MEDICAL HISTORY: Diabetes mellitus type 2, peripheral vascular disease, peripheral neuropathy, diabetic neuropathy, cataracts, bilateral diabetic foot ulcers, status post bilateral TMA, plus gluteal abscesses, medication noncompliance, physical deconditioning, Ischemic stroke, elderly fall, Depression PAST SURGICAL HISTORY: Bilateral TMA status post diabetic foot ulcers. ALLERGIES: PER ELECTRONIC MEDICAL RECORD. FAMILY HISTORY/SOCIAL HISTORY: Patient is . He has several children. He has a significant history of smoking, continues to smoke intermittently, has been smoking for at least 30 years. MEDICATIONS: Per electronic medical record. REVIEW OF SYSTEMS: no f/c/s/N/V/D/MARI/cp/sob/skin rash/back pain/dizziness/focal limb weakness/ PHYSICAL EXAMINATION VITAL SIGNS: Reviewed. GENERAL: nad HEENT: Anicteric. His right eye is opaque. CARDIOVASCULAR: Normal S1 and S2. LUNGS: Moderate breath sounds. ABDOMEN: Soft, nontender and nondistended. EXTREMITIES: He has bilateral TMA. TMA sites normal; no ulcer Otherwise looks good and healthy and warm bilaterally. SKIN: Dry. PSYCHIATRIC: normal affect. NEUROLOGICAL: Alert and oriented x3. Moving all extremities. LABS: Reviewed. MEDICATIONS: Reviewed. ASSESSMENTS: A 59yoM Uncontrolled DM1- insulin; consulted; hba1c/LDL Severe Physical deconditioning- PT consult; SNF eval DIabetic neuropathy. HTN- monitor HLD- cont statin Depression- cont venlafaxine Nicotine dependence in remission Prop: scd DIspo: PT; SNF ambika Monroe MD, PhD.
[2019-12-10] MEDS ORDERED: GABAPENTIN 300 MG CAP PO PRN (09:30)
[2019-12-10] MEDS ORDERED: ONDANSETRON HCL INJ 2MG/ML 2ML 2 MG/ML VIAL IV PRN (09:30)
[2019-12-10] MEDS ORDERED: ACETAMINOPHEN 325 MG TAB PO PRN (09:30)
[2019-12-10 09:48] LABS: CHOL/HDL RATIO 2.3 (3.9-4.7)
[2019-12-10] MEDS ORDERED: VENLAFAXINE HCL 37.5MG XR CAP PO SCH (11:00)
[2019-12-10 12:38] VITALS: BP 138/85
--- NOTE | 2019-12-10 15:01 | NUR ---
LONG-TERM FACILITY DISCHARGE INFORMATION PATIENT HAS BEEN ACCEPTED TO: NAME: FARHAT CHAUHAN [id number] ACCEPTING [employer]PER[employer]OR:FLO POLO ACCEPTING MD: SAIGE ROOM: 151 NURSE CALL REPORT TO: [phone] IMM SIGNED AND OBTAINED (if applicable): IMM THE FOLLOWING DOCUMENTS MUST ACCOMPANY PATIENT FOR TRANSFER: COPIED CHART: PACKET
[2019-12-10] MEDS ORDERED: FAMOTIDINE 20 MG TAB PO SCH (16:30)
[2019-12-10 16:44] LABS: CREATINE KINASE MB 2.2 ng/mL (0-5.0)
[2019-12-10 16:52] VITALS: BP 157/90
[2019-12-10] MEDS ORDERED: DOCUSATE SODIUM 100 MG CAP PO SCH (17:00)
--- NOTE | 2019-12-10 18:08 | NUR ---
I spoke with concerning the orders for CTA and Art Doppler duplex and advised him that the radiologist does not want to do the CTA. He advised that he will call and speak with radiologist and was provided the number.
[2019-12-10] MEDS: SODIUM CHLORIDE 0.9% 1000ML 1,000 ML IV SCH (18:30)
[2019-12-10] MEDS ORDERED: SIMVASTATIN 20 MG TAB PO SCH (21:00)
[2019-12-10] MEDS ORDERED: ZOLPIDEM TARTRATE 5 MG TAB PO PRN (21:00)
--- NOTE | 2019-12-10 21:18 | Consultation ---
DATE OF CONSULTATION: 12/10/2019 Endocrine Consultation HISTORY OF PRESENT ILLNESS: Thank you very much for referring this patient. This is a 59-year-old black gentleman who is very well known to me from his previous hospital admissions. In fact, the patient was discharged from [facility] recently. The patient is a known case of diabetes mellitus for almost 20 years, has multiple complications related to diabetes including severe diabetic sensorimotor neuropathy, peripheral vascular disease, status post bilateral TMA of both feet. He also has coronary artery disease, hypertension. The patient takes Lantus insulin about 20 at bedtime and Humalog 8-10 with each meal depending upon the blood sugars. The patient came to the hospital with history of nausea, vomiting. His blood sugar was found to be 514 at the time of admission, and anion gap was 12.9. His hemoglobin A1c is 11.9. 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 He has hypertension and severe neuropathy and hyperlipidemia. PHYSICAL EXAMINATION: GENERAL: Today, the patient is alert, awake, little bit apprehensive. He looks slightly cachectic and dehydrated. VITAL SIGNS: His heart rate is 70, blood pressure is 138/85 mmHg. HEENT: Essentially unremarkable. NECK: Thyroid is barely palpable. EXTREMITIES: He has evidence of diabetic sensory neuropathy in both lower extremities. He has also epigastric tenderness. LABORATORY DATA: His blood sugars presently running between 311 to 231. IMPRESSION: Diabetes mellitus type 2, uncontrolled with complications, acute hyperglycemia, peripheral vascular disease, status post bilateral TMA, coronary artery disease, hypertension. PLAN: At this time is to adjust the insulin dose. Continue the IV fluids. Monitor his blood sugars closely. Thank you again for referring this patient. I will be following this patient with you. MD ELAINE Dey/CARLOS /[id number]
--- NOTE | 2019-12-11 08:24 | NUR ---
D/C summary Principal Dx: Uncontrolled DM1- insulin; consulted; hba1c/LDL Severe Physical deconditioning- PT consult; SNF eval Secondary Dx: DIabetic neuropathy. HTN- monitor HLD- cont statin Depression- cont venlafaxine Nicotine dependence in remission Prop: scd DIspo: PT; SNF eval d/c to SNF stable f/u pcp 1 week d/c>35mins Sukh Monroe MD, PhD.
[2019-12-11] MEDS ORDERED: LOSARTAN POTASSIUM 25 MG TAB PO SCH (09:00)
== END 2019-12-10 19:05 | DRG 637 ==
LOC: ER 14:30 → ERHOLD 18:47 → MED/SURG3 23:07
PROVIDERS: ADMIT Internal Medicine; ATTEND Internal Medicine
DX: E10.65 Type 1 diabetes mellitus with hyperglycemia (principal); E43 Unspecified severe protein-calorie malnutrition; Z68.1 Body mass index [BMI] 19.9 or less, adult; Z79.4 Long term (current) use of insulin; I25.10 Atherosclerotic heart disease of native coronary artery without angina pectoris; I10 Essential (primary) hypertension; Z89.432 Acquired absence of left foot; Z83.3 Family history of diabetes mellitus; Z82.49 Family history of ischemic heart disease and other diseases of the circulatory system; Z88.8 Allergy status to other drugs, medicaments and biological substances; S50.12XA Contusion of left forearm, initial encounter; Z89.431 Acquired absence of right foot; E78.5 Hyperlipidemia, unspecified; E10.42 Type 1 diabetes mellitus with diabetic polyneuropathy; F32.9 Major depressive disorder, single episode, unspecified; E10.51 Type 1 diabetes mellitus with diabetic peripheral angiopathy without gangrene; R53.81 Other malaise; Z87.891 Personal history of nicotine dependence
CPT/HCPCS: 36415; 71045; 80048; 80053; 80061; 81001; 82550; 82553; 82948; 83036; 84484; 85025; 85610; 85730; 87086; 93005; 99284; J1815; J1817; J7030; J7040

== ENCOUNTER 2020-01-13 16:12 | Emergency (ER) | payer MEDICARE, OTHER ==
[~2020-01-13] VITALS: Ht 177.8 cm; Wt 52.2 kg
--- NOTE | 2020-01-13 17:14 | Diagnostic Imaging Report ---
CT BRAIN WO HISTORY: Fall COMPARISON: MRI of the brain 03/05/[address] 03/04/2019 TECHNIQUE: Noncontrast axial scans were obtained from skull base to the vertex. Coronal and sagittal reconstructions obtained from the axial data. One or more of the following dose reduction techniques were used: Automated exposure control, adjustment of the mA and/or kV according to patient size, and/or utilization of iterative reconstruction technique. DISCUSSION: Scalp/Skull: Unchanged retained metallic foreign bodies in the right parietal scalp and outer table of the right parietal calvarium; associated streak artifacts obscure some details. Small nonaggressive lucent lesion in the right parietal calvarium is also unchanged. No fractures. Brain sulci: Mildly prominent Ventricles: Unchanged moderate ventriculomegaly, which is slightly out of proportion to sulcal prominence. Extra-axial spaces: No masses or fluid collections. Carotid siphon and vertebral artery calcifications are present. Parenchyma: Old small bilateral paramedian pontine lacunar infarcts are present. Mild periventricular white matter hypodensities are likely chronic microvascular ischemic changes. Otherwise, no mass, hemorrhage, or large vascular territory acute infarct. Dural sinuses: No abnormal densities. Sellar/Suprasellar region: Intact. Skull base: Intact. Incidental findings: Bilateral ocular lens replacement. IMPRESSION: 1. Unchanged moderate ventriculomegaly is slightly out of proportion to sulcal prominence. Correlate for communicating hydrocephalus (i.e. normal pressure hydrocephalus) 2. No acute intracranial abnormalities. 3. Old small bilateral pontine paramedian lacunar infarcts. 4. Mild generalized cerebral volume loss. Mild supratentorial chronic microvascular ischemic change. Signed by: Dr. Sohail Holly M.D. on 01/13/2020 5:11 PM
--- NOTE | 2020-01-13 17:35 | Diagnostic Imaging Report ---
CT CERVICAL SPINE WO HISTORY: Fall COMPARISON: Cervical spine CT 07/27/2017 TECHNIQUE: CT of the cervical spine without contrast. Sagittal and coronal reformations were created. One or more of the following dose reduction techniques were used: Automated exposure control, adjustment of the mA and/or kV according to patient size, and/or utilization of iterative reconstruction technique. FINDINGS: Cervical lordosis is preserved. There is no significant scoliosis. No definite acute fractures, compression deformity, or destructive osseous lesions are seen. The craniocervical junction is intact. No gross spinal canal masses are seen. Small metallic object is seen adjacent to the right C2 spinous process. The paravertebral and paraspinal soft tissues are otherwise unremarkable. Moderate multilevel spondylosis is most prominent at C3-C4. Prominent atlantoaxial arthrosis is present as well. Minimal grade 1 anterolisthesis of C7 on T1 is due to facet arthrosis. There is at least mild to moderate canal stenosis at C3-C4 due to posterior disc osteophyte complex. Multilevel bilateral foraminal stenoses are due to uncovertebral and facet arthrosis are present. Small metallic foreign bodies are seen along the left soft palate and left sublingual region. There are emphysematous changes in the upper lungs. Mild bilateral scattered cervical carotid calcified plaque is present. Chronic deformity of the right mandibular condyle is likely from remote fracture. IMPRESSION: 1. No acute osseous abnormalities. 2. Moderate multilevel spondylosis, most prominent at C3-C4. Signed by: Dr. Sohail Holly M.D. on 01/13/2020 5:31 PM
--- NOTE | 2020-01-13 17:39 | Emergency Department Note ---
History of Present Illnes History of Present Illness Chief Complaint: General Medicine Complaints History of Present Illness This is a 59 year old male . 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 Any updates have been documented here. (FRANCO ZAMORA NP) Past Medical History Recent Fever: No Clinical Suspicion of Infectio: No New/Unexplained Change in Ment: No Past Medical History: Hypertension, Diabetes, Hyperlipedemia Other Medical History: SMOKER, ALL TOES BILATERALLY AMPUTATED Past Surgical History: Cataract Removal Other Surgery: ALL TOES ON RIGHT FOOT, NECK SURGERY, CATARACT TO RIGHT EYE, AMPUTATION LEFT BIG TOE (FRANCO ZAMORA NP) Social History Smoking Cessation: Never Smoker Any Illegal Drug Use: No TB Exposure/Symptoms: No Physically hurt or threatened: No (FRANCO ZAMORA NP) Other Last Tetanus: UNKNOWN (FRANCO ZAMORA NP) Review of Systems Review of Systems Constitutional: no symptoms EENTM: no symptoms Cardiovascular: no symptoms Respiratory: no symptoms Gastrointestinal: no symptoms Genitourinary: no symptoms Musculoskeletal: no symptoms Neurological: no symptoms Psychological: no symptoms Endocrine: no symptoms Hematological/Lymphatic: no symptoms Review of other systems All other systems reviewed and negative. (FRANCO ZAMORA NP) Physical Exam Related Data Allergies: Coded Allergies: insulin regular (Verified Allergy, Unknown, 12/09/19) Triage Vital Signs Vital Signs Date Time Temp Pulse Resp B/P (MAP) Pulse Ox O2 Delivery O2 Flow Rate FiO2 01/13/20 16:27 97.6 73 18 102/68 99 Vital signs reviewed: Yes (FRANCO ZAMORA NP) Physical Exam CONSTITUTIONAL Constitutional: well-developed, well-nourished HENT HENT: normocephalic, atraumatic, oropharynx clear/moist, nose normal HENT L/R: left ext ear normal, right ext ear normal EYES Eyes: PERRL, conjunctivae normal NECK Neck: ROM normal PULMONARY Pulmonary: effort normal, breath sounds normal CARDIOVASCULAR Cardiovascular: regular rhythm, heart sounds normal, capillary refill normal, normal rate GASTROINTESTINAL Abdominal: soft, nontender, bowel sounds normal GENITOURINARY Genitourinary: exam deferred SKIN Skin: warm, dry MUSCULOSKELETAL Musculoskeletal: ROM normal NEUROLOGICAL Neurological: alert, oriented x 3, no gross motor or sensory deficits PSYCHOLOGICAL Psychological: mood/affect normal, judgement normal (FRANCO ZAMORA NP) Results Imaging Imaging results reviewed: Yes Impressions CT CERVICAL SPINE WO HISTORY: Fall COMPARISON: Cervical spine CT 07/27/2017 TECHNIQUE: CT of the cervical spine without contrast. Sagittal and coronal reformations were created. One or more of the following dose reduction techniques were used: Automated exposure control, adjustment of the mA and/or kV according to patient size, and/or utilization of iterative reconstruction technique. FINDINGS: Cervical lordosis is preserved. There is no significant scoliosis. No definite acute fractures, compression deformity, or destructive osseous lesions are seen. The craniocervical junction is intact. No gross spinal canal masses are seen. Small metallic object is seen adjacent to the right C2 spinous process. The paravertebral and paraspinal soft tissues are otherwise unremarkable. Moderate multilevel spondylosis is most prominent at C3-C4. Prominent atlantoaxial arthrosis is present as well. Minimal grade 1 anterolisthesis of C7 on T1 is due to facet arthrosis. There is at least mild to moderate canal stenosis at C3-C4 due to posterior disc osteophyte complex. Multilevel bilateral foraminal stenoses are due to uncovertebral and facet arthrosis are present. Small metallic foreign bodies are seen along the left soft palate and left sublingual region. There are emphysematous changes in the upper lungs. Mild bilateral scattered cervical carotid calcified plaque is present. Chronic deformity of the right mandibular condyle is likely from remote fracture. IMPRESSION: 1. No acute osseous abnormalities. 2. Moderate multilevel spondylosis, most prominent at C3-C4. (FRANCO ZAMORA NP) Critical Care Time Subsequent provider I assumed direction of critical care for this patient from another provider of my specialty. (FRANCO ZAMORA NP) Assessment & Plan Reassessment Reassessment AWAITING CT RESULTS. PATIENT HAS NO COMPLAINTS (FRANCO ZAMORA NP) Assessment & Plan Final Impression: (1) Fall from wheelchair Assessment & Plan PATIENT HERE FROM [facility] FOR CT HEAD AND NECK S/P FALL FROM WHEELCHAIR YESTERDAY, PATIENT STATES HE LEANED FORWARD AND FELL . PATIENT HAS NO COMPLAINTS. WILL ORDER CT TO R/O AND ABNORMALITIES ALL RESULTS DISCUSSED WITH VIOLET ARELLANO TO DC HOME (FRANCO ZAMORA NP) Depart Disposition: HOME, SELF-CARE Last Vital Signs Date Time Temp Pulse Resp B/P (MAP) Pulse Ox O2 Delivery O2 Flow Rate FiO2 01/13/20 16:27 97.6 73 18 102/68 99 (FRANCO ZAMORA NP) Home Meds Active Scripts Ondansetron (ZOFRAN ODT) 4 Mg Tab.rapdis, 4 MG PO Q4-6H PRN, #30 Prov:PHILIP MOULTON MD 04/30/18 Venlafaxine Hcl* (EFFEXOR XR 37.5MG CAPCR*) 37.5 Mg Capcr, 37.5 MG PO Q12H for 30 Days Prov:PHILIP MOULTON MD 04/30/18 Pravastatin Sodium (PRAVASTATIN SODIUM) 40 Mg Tablet, 40 MG PO HS for 30 Days Prov:PHILIP MOULTON MD 04/30/18 [Insulin Lispro] 100 UNIT/1 ML VIAL No Conflict Check, 5 UNIT SQ AC for 30 Days Prov:PHILIP MOULTON MD 07/16/17 [Insulin Detemir] 100 UNIT/ML PEN No Conflict Check, 18 UNIT SQ HS for 30 Days Prov:PHILIP MOULTON MD 07/16/17 Famotidine (FAMOTIDINE) 20 Mg Tab, 20 MG PO BIDAC for 30 Days, TAB Prov:PHILIP MOULTON MD 07/16/17 Docusate Sodium (COLACE) 100 Mg Capsule, 100 MG PO BID for 30 Days Prov:PHILIP MOULTON MD 07/16/17 Reported Medications Insulin Lispro (HUMALOG) 100 Unit/1 Ml Cartridge, 7 SQ AC 07/28/17 Tramadol Hcl (ULTRAM) 50 Mg Tablet, 50 MG PO PRN PRN for PAIN, TAB 05/05/17 Losartan Potassium (LOSARTAN POTASSIUM) 25 Mg Tablet, 50 MG PO DAILY 01/07/17 Gabapentin (GABAPENTIN) 400 Mg Capsule, 300 MG PO TID PRN for PAIN, #30 CAP 05/08/16 Physician Attestation Provider Attestation The patient's history, exam findings, diagnostics, and a summary of any interventions or procedures was reviewed in detail with our CHRISS. I personally interviewed and examined the patient, and I have reviewed and agree with the HPI andexam. My personal exam shows no evidence of acute traumatic injury. I confirm the diagnosis as documented by the CHRISS. I have reviewed and agree with the care plan articulated in the disposition section. (TONIO PHILLIPS MD) FRANCO ZAMORA NP January 13, 2020 17:18 TONIO PHILLIPS MD January 13, 2020 19:00
== END 2020-01-13 18:00 | disposition home or self-care (01) ==
LOC: ER 16:12
DX: S00.83XA Contusion of other part of head, initial encounter (principal); W05.0XXA Fall from non-moving wheelchair, initial encounter; Y92.008 Other place in unspecified non-institutional (private) residence as the place of occurrence of the external cause; E11.65 Type 2 diabetes mellitus with hyperglycemia; I10 Essential (primary) hypertension; E78.5 Hyperlipidemia, unspecified; Z89.412 Acquired absence of left great toe
CPT/HCPCS: 70450; 72125; 99284